=== PATIENT | male | born 1940 | race Caucasian/White ===

== ENCOUNTER 2016-06-01 19:39 | Inpatient (IN) ==
--- NOTE | 2016-06-01 19:55 | Emergency Department Note ---
Disposition Clinical Impression: Hip fracture Qualifiers: Encounter type: initial encounter Fracture type: closed Laterality: right Qualified Code(s): S72.001A - Fracture of unspecified part of neck of right femur, initial encounter for closed fracture Disposition: Admitted As Inpatient Condition: Good Fall HPI - General Chief Complaint: ED Fall Stated Complaint: FALL Source: patient Nursing Notes Reviewed: Yes Vital Signs Reviewed: Yes - History of Present Illness HPI Narrative: Patient comes in with right hip pain status post fall. Per report patient was walking and had a fall. Patient was helped back up in bed he has been in bed since then. Exam is limited to patient's altered mental status. When questioned he states that he does have pain in his right hip on palpation. Patient also states that he has pain in every other place when questioned. Patient baseline mental function is unknown at this time as no family members available at the bedside - Related Data Allergies Allergy/AdvReac Type Severity Reaction Status Date / Time No Known Allergies Allergy Verified 06/01/16 19:41 Limitations: ROS unobtainable due to patients medical condition Fall PMH - Past Medical History Medical history: Reports: other Psychiatric history: Reports: no psych history - Social History Smoking Status: Unknown if ever smoked Alcohol use: Reports: unknown Drug use: Reports: unknown Physical Exam - General Limitations: altered mental status General appearance: alert, appears intoxicated - Head Head exam: atraumatic, normocephalic, normal inspection - Eye Eye exam: Present: normal appearance, PERRL, EOMI - ENT ENT exam: normal exam, normal oropharynx, mucous membranes moist - Neck Neck exam: Present: normal inspection, full ROM, trachea midline - Chest Chest inspection: Present: normal inspection, symmetric chest wall rise - Respiratory Respiratory exam: Present: normal lung sounds bilaterally - Cardiovascular Cardiovascular exam: Present: regular rate, normal rhythm, normal heart sounds - Abdominal Exam Abdominal exam: Present: soft, Non-Tender. Absent: tenderness, distention, guarding, rebound, rigidity - Extremities Exam Extremities exam: Present: other (Right hip exam limited secondary to pain. The limb appears to be shortened when compared to left) - Back Exam Back exam: Present: normal inspection, full ROM. Absent: tenderness - Neurological Exam Neurological exam: Present: alert - Psychiatric Psychiatric exam: Present: normal affect - Skin Skin exam: Present: warm, dry, intact, normal color Course Vital Signs Temperature 97.6 F 06/01/16 19:44 Pulse Rate 91 06/01/16 19:44 Respiratory Rate 22 06/01/16 19:44 Blood Pressure 165/102 06/01/16 19:44 O2 Sat by Pulse Oximetry 94 L 06/01/16 19:44 Temperature 97.6 F 06/01/16 19:44 Pulse Rate 87 06/01/16 22:23 Respiratory Rate 22 06/01/16 23:09 Blood Pressure 147/64 06/01/16 23:09 O2 Sat by Pulse Oximetry 96 06/01/16 22:23 Oxygen Delivery Oxygen Delivery Room Air Fall - Lab Data Result diagrams: 06/01/16 20:00 06/01/16 20:00 Lab Results 06/01/16 06/01/16 06/01/16 Range/Units 20:00 20:00 20:00 WBC 13.6 H (4.3-11.1) K/mcL RBC 4.76 (4.19-5.50) M/mcL Hgb 14.5 (12.9-16.9) g/dL Hct 42.8 (37.5-50.1) % MCV 89.9 (83.0-100.0) fL MCH 30.5 (28.0-33.3) pg MCHC 33.9 (31.6-35.5) g/dL RDW 13.2 (11.5-14.5) % Plt Count 331 (140-400) K/mcL MPV 8.8 L (9.4-12.4) fL Immature Gran % 1.0 (0-4) % Seg Neutrophils % 77.7 % Lymphocytes % 9.8 % Monocytes % 10.9 % Eosinophils % 0.4 % Basophils % 0.2 % Neutrophils # 10.6 H (1.6-8.9) K/mcL Lymphocytes # 1.3 (0.6-4.6) K/mcL Monocytes # 1.5 H (0.0-1.3) K/mcL Eosinophils # 0.1 (0.0-0.6) K/mcL Basophils # 0.0 (0.0-0.2) K/mcL Sodium 133 L (136-145) mEq/L Potassium 3.8 (3.5-4.5) mEq/L Chloride 97 L (98-109) mEq/L Carbon Dioxide 25 (19-29) mEq/L BUN 12 (8-26) mg/dL Creatinine 1.23 (0.72-1.25) mg/dL Est GFR ( Amer) > 60 (> 60) Est GFR (Non-Af Amer) 57 L (> 60) BUN/Creatinine Ratio 10 (6-26) Glucose 151 H (70-99) mg/dL Calculated Osmolality 279 L (280-300) Lactic Acid 2.0 (0.5-2.2) mmol/L Calcium 8.7 (8.6-10.8) mg/dL Total Bilirubin 1.7 H (0.2-1.2) mg/dL AST 19 (5-34) Units/L ALT 11 (0-55) Units/L Alkaline Phosphatase 66 (38-126) Units/L Troponin I (0-0.03) ng/mL Serum Total Protein 7.1 (6.0-8.3) g/dL Albumin 3.1 L (3.5-5.0) g/dL Globulin 4.0 H (2.4-3.5) g/dL Albumin/Globulin Ratio 0.8 L (1.1-2.2) Urine Color (Yellow) Urine Clarity (Clear) Urine pH (5.0-8.0) pH Units Ur Specific Brewster (1.010-1.025) Urine Protein (Neg-Trace) mg/dL Urine Glucose (UA) (Normal) mg/dL Urine Ketones (Negative) mg/dL Urine Blood (Negative) Urine Nitrite (Negative) Urine Bilirubin (Negative) Urine Urobilinogen (Normal) mg/dL Ur Leukocyte Esterase (Negative) Urine Microscopic RBC (0-3) per hpf Urine Microscopic WBC (0-3) per hpf Ur Squamous Epith Cells (None-Few) per lpf Urine Bacteria (None-Few) per hpf Hyaline Casts (None-Few) per lpf Ur Culture Indicated? (NO) 06/01/16 06/01/16 Range/Units 20:00 21:32 WBC (4.3-11.1) K/mcL RBC (4.19-5.50) M/mcL Hgb (12.9-16.9) g/dL Hct (37.5-50.1) % MCV (83.0-100.0) fL MCH (28.0-33.3) pg MCHC (31.6-35.5) g/dL RDW (11.5-14.5) % Plt Count (140-400) K/mcL MPV (9.4-12.4) fL Immature Gran % (0-4) % Seg Neutrophils % % Lymphocytes % % Monocytes % % Eosinophils % % Basophils % % Neutrophils # (1.6-8.9) K/mcL Lymphocytes # (0.6-4.6) K/mcL Monocytes # (0.0-1.3) K/mcL Eosinophils # (0.0-0.6) K/mcL Basophils # (0.0-0.2) K/mcL Sodium (136-145) mEq/L Potassium (3.5-4.5) mEq/L Chloride (98-109) mEq/L Carbon Dioxide (19-29) mEq/L BUN (8-26) mg/dL Creatinine (0.72-1.25) mg/dL Est GFR ( Amer) (> 60) Est GFR (Non-Af Amer) (> 60) BUN/Creatinine Ratio (6-26) Glucose (70-99) mg/dL Calculated Osmolality (280-300) Lactic Acid (0.5-2.2) mmol/L Calcium (8.6-10.8) mg/dL Total Bilirubin (0.2-1.2) mg/dL AST (5-34) Units/L ALT (0-55) Units/L Alkaline Phosphatase (38-126) Units/L Troponin I 0.02 (0-0.03) ng/mL Serum Total Protein (6.0-8.3) g/dL Albumin (3.5-5.0) g/dL Globulin (2.4-3.5) g/dL Albumin/Globulin Ratio (1.1-2.2) Urine Color Dark Yellow (Yellow) Urine Clarity Clear (Clear) Urine pH 6.0 (5.0-8.0) pH Units Ur Specific Brewster 1.019 (1.010-1.025) Urine Protein 30 H (Neg-Trace) mg/dL Urine Glucose (UA) Normal (Normal) mg/dL Urine Ketones Trace H (Negative) mg/dL Urine Blood Negative (Negative) Urine Nitrite Negative (Negative) Urine Bilirubin Negative (Negative) Urine Urobilinogen Normal (Normal) mg/dL Ur Leukocyte Esterase Negative (Negative) Urine Microscopic RBC 3-5 H (0-3) per hpf Urine Microscopic WBC 0-3 (0-3) per hpf Ur Squamous Epith Cells Many H (None-Few) per lpf Urine Bacteria None Seen (None-Few) per hpf Hyaline Casts None Seen (None-Few) per lpf Ur Culture Indicated? NO (NO) - EKG Data EKG attestation: Yes I reviewed and interpreted this EKG. EKG shows normal: sinus rhythm Rate: normal Rhythm: NSR Critical Care Time Total Critical Care Time: 30 Attestation: Head CT 06/01/16 19:42 IMPRESSION: No acute intracranial abnormality. D/ / Tang Cedeño MD / Tang Cedeño MD Interpreting Provider: Tang Cedeño MD Pelvis CT 06/01/16 19:42 IMPRESSION: Impacted right femoral neck fracture. D/ / eTe Shields MD / Tee Shields MD Interpreting Provider: Tee Shields MD Chest X-Ray 06/01/16 22:25 IMPRESSION: Patchy bibasilar opacities, right greater the left. While these findings may in part reflect atelectatic changes, possible infectious infiltrates could be considered in the correct clinical setting. D/ / Ahsan Sweet MD / Ahsan Sweet MD Interpreting Provider: Ahsan Sweet MD
[2016-06-01 20:07] LABS: Basophils % 0.2 %; Eosinophils # 0.1 K/mcL (0.0-0.6); Eosinophils % 0.4 %; Hematocrit 42.8 % (37.5-50.1); Hemoglobin 14.5 g/dL (12.9-16.9); Lymphocytes # 1.3 K/mcL (0.6-4.6); Lymphocytes % 9.8 %; Mean Corpuscular HGB Conc 33.9 g/dL (31.6-35.5); Mean Corpuscular Hemoglobin 30.5 pg (28.0-33.3); Mean Corpuscular Volume 89.9 fL (83.0-100.0); Mean Platelet Volume 8.8 fL (9.4-12.4); Monocytes # 1.5 K/mcL (0.0-1.3); Monocytes % 10.9 %; Neutrophils # 10.6 K/mcL (1.6-8.9); Platelet Count 331 K/mcL (140-400); Red Blood Count 4.76 M/mcL (4.19-5.50); Red Cell Distribution Width 13.2 % (11.5-14.5); Segmented Neutrophils % 77.7 %
[2016-06-01 20:20] LABS: Alanine Aminotransferase 11 Units/L (0-55); Albumin 3.1 g/dL (3.5-5.0); Albumin/Globulin Ratio 0.8 (1.1-2.2); Alkaline Phosphatase 66 Units/L (38-126); Aspartate Amino Transferase 19 Units/L (5-34); BUN/Creatinine Ratio 10 (6-26); Bilirubin,Total 1.7 mg/dL (0.2-1.2); Blood Urea Nitrogen 12 mg/dL (8-26); Calcium 8.7 mg/dL (8.6-10.8); Carbon Dioxide 25 mEq/L (19-29); Chloride 97 mEq/L (98-109); Glucose 151 mg/dL (70-99); Osmolality,Calculated 279 (280-300); Potassium 3.8 mEq/L (3.5-4.5); Sodium 133 mEq/L (136-145); Total Protein 7.1 g/dL (6.0-8.3); eGFR For African Americans > 60 (> 60); eGFR For Non-African Americans 57 (> 60)
[2016-06-01 21:39] LABS: Bilirubin,Urine Negative (Negative); Blood,Urine Negative (Negative); Clarity,Urine Clear (Clear); Color,Urine Dark Yellow (Yellow); Glucose,Urine (UA) Normal (Normal); Ketones,Urine Trace mg/dL (Negative); Leukocyte Esterase,Urine Negative (Negative); Nitrite,Urine Negative (Negative); Protein,Urine 30 mg/dL (Neg-Trace); Specific Gravity,Urine 1.019 (1.010-1.025); Urobilinogen,Urine Normal (Normal)
[2016-06-01 21:41] LABS: Bacteria,Urine None Seen per hpf (None-Few); Hyaline Casts,Urine None Seen per lpf (None-Few); Squamous Epithelial Cell,Urine Many per lpf (None-Few); WBC,Urine 0-3 per hpf (0-3)
[2016-06-01] MEDS ORDERED: 0.9 % Sodium Chloride 500 ML IV ONE (22:26)
--- NOTE | 2016-06-01 23:34 | Internal Med History&Physical ---
<CheungJean - Last Filed: 06/02/16 00:02> Date of Encounter: 06/01/16 Time of Encounter: 23:30 Assessment and Plan (1) Fracture of femoral neck, right, closed Current visit: Yes Status: Acute s/p fall yesterday onto right hip, CT demonstrated impacted right femoral neck fracture Orthopedic surgeon consulted, appreciate management Support with analgesics, anti-emetics and maintenance IVF while NPO midnight for possible procedure tomorrow Consult PT/OT/SS, appreciate recommendations Qualifiers: Qualified Code(s): S72.001A - Fracture of unspecified part of neck of right femur, initial encounter for closed fracture (2) Altered mental status Current visit: Yes Status: Chronic states he is near his baseline over the past 3 months, suspect underlying dementia Will obtain TSH, B12 to workup metabolic etiology Qualifiers: Qualified Code(s): R41.82 - Altered mental status, unspecified (3) Hypertension Current visit: Yes Status: Chronic Blood pressures acceptable since admission and is unsure what medications he is on at home Will order PRN IV Hydralazine if SBP > 180 Qualifiers: Qualified Code(s): I10 - Essential (primary) hypertension (4) Leukocytosis Current visit: Yes Status: Acute Unclear etiology, likely reactive in setting of recent fall but pneumonia cannot be ruled out Initial 1V CXR was equivocal so will obtain repeat 2V CXR in AM to evaluate for further evaluation He has no respiratory symptoms currently and urine is clean Qualifiers: Qualified Code(s): D72.829 - Elevated white blood cell count, unspecified Internal Medicine - H&P: HPI Chief complaint: fall Admitted From: Home Plans for Post Hospital Care: Home History of present illness: Mr. Ellis is a 75 year old male who presents to emergency department after sustaining a fall last night. He appears confused and does not answer questions appropriately, but is accompanied by his who is able to assist in history. Unfortunately, she is not the best historian but she states that they had returned home from a blood draw and he had an unwitnessed fall. states that he had right hip pain immediately after the fall and needed help to pick him up. Patient is very hard of hearing and also has history of glaucoma, and is able to get around with a walker and wheelchair at home. states that he has been falling roughly every 3-6 months over the past few years, but denies that he ever loses any consciousness. They do have a home health nurse that comes by every 2 or 3 nights to help out. states that patient has been confused over the past 3 months and has also had excessive sleeping during the day and has very "quiet" all the time. She reports that he had a stroke at some point in the past and has residual left-sided deficits. He has also had upper extremity tremor in the past 3 months. Past Med Surg Social Fam HX - Past Medical History Medical history: other Psychiatric history: no psych history - Social History Smoking Status: Unknown if ever smoked Alcohol use: unknown Drug use: unknown Internal Medicine - H&P: Meds Allergies No Known Allergies Allergy (Verified 06/01/16 19:41) ROS unobtainable: due to mental status All Systems PM: A 10-system review of systems was performed and is negative for pertinent findings except as documented above in the HPI. - Constitutional Vitals: Temp Pulse Resp BP Pulse Ox 97.6 F 87 22 147/64 96 06/01/16 19:44 06/01/16 22:23 06/01/16 23:09 06/01/16 23:09 06/01/16 22:23 General appearance: Present: A&O X 0 (does not know where he is, thinks it 1995 , was able to tell me correct month and date but not the year), disheveled , pleasant, no acute distress. Absent: answers questions appropriately - Head Head exam: Present: atraumatic, normocephalic - Eye Eye exam: Present: PERRL, conjuntiva pink, sclera anicteric - Neck Neck exam general surgery: Present: supple, trachea midline. Absent: lymphadenopathy - Respiratory Respiratory exam: Present: CTAB. Absent: accessory muscle use, rales, rhonchi, wheezes - Cardiovascular Cardiovascular exam: Present: RRR, +S1, +S2. Absent: diastolic murmur, gallop, rubs, systolic murmur - GI/Abdominal GI/Abdominal exam: Present: normal bowel sounds, soft, no peritoneal signs. Absent: distended, tenderness - Extremities Exam Extremities exam: Present: tenderness (does not have any tenderness with palpation of right hip, but does hurt when moving right leg), warm, radial pulses palpable and symetrical. Absent: calf tenderness, cyanotic, pedal edema - Neurological Exam Neurological exam: Present: altered. Absent: oriented X3, strengths equal and symetr throughout (unable to lift right leg at all), facial droop, speech deficit - Skin Skin exam: Present: dry, intact Internal Med - H&P Results - Labs CBC & Chem 7: 06/01/16 20:00 06/01/16 20:00 <Salvador Jerry Santi - Last Filed: 06/02/16 08:58> Internal Medicine - H&P: HPI History of present illness: Mr. Ellis is a 75 year old male All Systems PM: A 10-system review of systems was performed and is negative for pertinent findings except as documented above in the HPI. - Constitutional Vitals: Temp Pulse Resp BP Pulse Ox 99.1 F 93 18 189/92 96 06/02/16 06:45 06/02/16 06:45 06/02/16 06:45 06/02/16 06:45 06/02/16 06:45 Internal Med - H&P Results - Labs CBC & Chem 7: 06/02/16 04:05 06/02/16 04:05 Labs: Short CBC 06/02/16 Range/Units 04:05 WBC 14.7 H (4.3-11.1) K/mcL Hgb 13.4 (12.9-16.9) g/dL Hct 39.3 (37.5-50.1) % Plt Count 324 (140-400) K/mcL Neutrophils # 11.0 H (1.6-8.9) K/mcL BMP 06/02/16 04:05 Sodium 133 L Potassium 3.6 Chloride 99 Carbon Dioxide 24 BUN 12 Creatinine 1.03 Glucose 119 H Calcium 8.1 L - Impressions ITS Impressions Head CT 06/01/16 19:42 IMPRESSION: No acute intracranial abnormality. D/ / Tang Cedeño MD / Tang Cedeño MD Interpreting Provider: Tang Cedeño MD Pelvis CT 06/01/16 19:42 IMPRESSION: Impacted right femoral neck fracture. D/ / Tee Shields MD / Tee Shields MD Interpreting Provider: Tee Shields MD Chest X-Ray 06/01/16 22:25 IMPRESSION: Patchy bibasilar opacities, right greater the left. While these findings may in part reflect atelectatic changes, possible infectious infiltrates could be considered in the correct clinical setting. D/ / Ahsan Sweet MD / Ahsan Sweet MD Interpreting Provider: Ahsan Sweet MD - Attending Attestation I performed a history and physical examination of the patient and discussed his management with the Resident/Eye Specialist (Dr Cheung). I reviewed the residents note and agree with the documented findings and plan of care, with additions as below. 75 Y/M sustained a fall and noticed right hip pain. Imaging shows right hip fracture. Pt has leukocytosis and the CXR is inconclusive. Will repeat 2 view CXR in the AM. O/E: confused. No significant hip tenderness. A/P; Orthopedic consult (Dr Rios). Pain relief; bed rest until surgery. PT consult
[2016-06-01] MEDS ORDERED: Dextrose Gel 15 GM PO PRN ×2 (23:55)
[2016-06-01] MEDS ORDERED: *HR* Dextrose 50 % in Water (Syg) 50 ML SYRINGE IVP PRN (23:55)
[2016-06-01] MEDS ORDERED: D5% in Water 1,000 ML IV PRN (23:55)
[2016-06-01] MEDS ORDERED: Naloxone 0.4 MG/ML INJ IVP PRN (23:55)
[2016-06-01] MEDS ORDERED: Ondansetron 4 MG/2 ML VIAL IVP PRN (23:55)
[2016-06-02] MEDS ORDERED: Ipratropium/Albuterol Neb 3 ML IH PRN (00:26)
[2016-06-02] MEDS: Ringers Solution, Lactated 1,000 ML IVC SCH ×2 (01:07→16:39)
[2016-06-02] MEDS: Insulin LISPRO 300 UNITS/3 ML VIAL SQ SCH ×5 (01:08→17:19)
[2016-06-02] MEDS ORDERED: Nicotine 21 MG PATCH.TD24 TD SCH ×2 (01:50→09:00)
[2016-06-02] MEDS: *HR* Morphine 2 MG/ML SYRINGE IVP PRN ×2 (03:50→16:39)
[2016-06-02 04:21] LABS: Basophils # 0.1 K/mcL (0.0-0.2); Basophils % 0.5 %; Eosinophils # 0.3 K/mcL (0.0-0.6); Eosinophils % 2.1 %; Hematocrit 39.3 % (37.5-50.1); Hemoglobin 13.4 g/dL (12.9-16.9); Immature Granulocytes % 0.8 % (0-4); Lymphocytes # 1.8 K/mcL (0.6-4.6); Lymphocytes % 12.2 %; Mean Corpuscular HGB Conc 34.1 g/dL (31.6-35.5); Mean Corpuscular Hemoglobin 30.6 pg (28.0-33.3); Mean Corpuscular Volume 89.7 fL (83.0-100.0); Mean Platelet Volume 9.3 fL (9.4-12.4); Monocytes # 1.5 K/mcL (0.0-1.3); Monocytes % 10.1 %; Platelet Count 324 K/mcL (140-400); Red Blood Count 4.38 M/mcL (4.19-5.50); Red Cell Distribution Width 13.3 % (11.5-14.5); Segmented Neutrophils % 74.3 %
[2016-06-02 04:23] LABS: INR 1.3; Prothrombin Time 14.1 Seconds (9.4-12.1)
[2016-06-02 04:30] LABS: BUN/Creatinine Ratio 12 (6-26); Blood Urea Nitrogen 12 mg/dL (8-26); Calcium 8.1 mg/dL (8.6-10.8); Carbon Dioxide 24 mEq/L (19-29); Chloride 99 mEq/L (98-109); Glucose 119 mg/dL (70-99); Osmolality,Calculated 277 (280-300); Potassium 3.6 mEq/L (3.5-4.5); Sodium 133 mEq/L (136-145); eGFR For African Americans > 60 (> 60); eGFR For Non-African Americans > 60 (> 60)
[2016-06-02 04:54] LABS: Thyroid Stimulating Hormone 1.592 mcIU/mL (0.350-4.840)
--- NOTE | 2016-06-02 06:49 | Orthopedic Consult Note ---
Date of Encounter: 06/02/16 Time of Encounter: 06:47 History of Present Illness HPI: Mr. Ellis is a 75 year old male S/P fall yesterday wih injury to right hip denies head trauma A+Ox3 Right LE shortened ER decreased motion secondary to pain NVI CT scan displaced femoral neck fracture Plan for right hip hemiarthroplasty in AM risks and benefits and recovery discussed. Past Med Surg Social Fam HX - Past Medical History Medical history: other Psychiatric history: no psych history - Social History Smoking Status: Unknown if ever smoked Packs per day: 2.5 Smokeless Tobacco Status: No Alcohol use: unknown Drug use: unknown Medications and Allergies Allergies No Known Allergies Allergy (Verified 06/01/16 19:41) All Systems Reviewed: A 10-system review of systems was performed and is negative for pertinent findings except as documented above in the HPI. Physical Exam - Constitutional Vitals: Temp Pulse Resp BP Pulse Ox 98.6 F 92 16 176/80 97 06/02/16 05:05 06/02/16 05:05 06/02/16 05:05 06/02/16 05:05 06/02/16 05:05 Results - Labs Result Diagrams: 06/02/16 04:05 06/02/16 04:05 Labs: Abnormal lab results WBC 14.7 K/mcL (4.3-11.1) H 06/02/16 04:05 MPV 9.3 fL (9.4-12.4) L 06/02/16 04:05 Neutrophils # 11.0 K/mcL (1.6-8.9) H 06/02/16 04:05 Monocytes # 1.5 K/mcL (0.0-1.3) H 06/02/16 04:05 PT 14.1 Seconds (9.4-12.1) H 06/02/16 04:05 Sodium 133 mEq/L (136-145) L 06/02/16 04:05 Glucose 119 mg/dL (70-99) H 06/02/16 04:05 POC Glucose 128 (58-89) H 06/02/16 05:40 Calculated Osmolality 277 (280-300) L 06/02/16 04:05 Calcium 8.1 mg/dL (8.6-10.8) L 06/02/16 04:05 Total Bilirubin 1.7 mg/dL (0.2-1.2) H 06/01/16 20:00 Albumin 3.1 g/dL (3.5-5.0) L 06/01/16 20:00 Globulin 4.0 g/dL (2.4-3.5) H 06/01/16 20:00 Albumin/Globulin Ratio 0.8 (1.1-2.2) L 06/01/16 20:00 Urine Protein 30 mg/dL (Neg-Trace) H 06/01/16 21:32 Urine Ketones Trace mg/dL (Negative) H 06/01/16 21:32 Urine Microscopic RBC 3-5 per hpf (0-3) H 06/01/16 21:32 Ur Squamous Epith Cells Many per lpf (None-Few) H 06/01/16 21:32 H & H 06/02/16 Range/Units 04:05 Hgb 13.4 (12.9-16.9) g/dL Hct 39.3 (37.5-50.1) % All other labs normal. Consult Discharge Plan - Plan Referrals: Aline Joseph MD [Primary Care Provider] -
[2016-06-02 08:10] LABS: Hemoglobin A1C 5.8 %
[2016-06-02] MEDS ORDERED: Pantoprazole 40 MG VIAL IVP SCH (09:00)
[2016-06-02] MEDS ORDERED: *HR* Labetalol 20 MG/4 ML SYRINGE IVP ONE (10:03)
--- NOTE | 2016-06-02 12:35 | Internal Med Progress Note ---
Date of Encounter: 06/02/16 Time of Encounter: 12:33 - Assessment and plan (1) Fracture of femoral neck, right, closed Current Visit: Yes Status: Acute Assessment and plan: ortho has been consulted, planned for surgery he has HTN and HLD , does have intermediate risk for surgery. at this time, he is confused and cannot give any history regarding his pMH or his home meds. CT head done shows no abnormality. unclear etiology. ua is clear, mild leucocytosis and CXR shows b/l ate;ectasis vs pneumonia will emperically treat for pneumonia as he is a poor historian and confused, will de - escalate once able. conitnue DVt prophylaxis. Qualifiers: Encounter type: initial encounter Qualified Code(s): S72.001A - Fracture of unspecified part of neck of right femur, initial encounter for closed fracture (2) Hip fracture Current Visit: Yes Status: Acute Assessment and plan: as above Qualifiers: Encounter type: initial encounter Fracture type: closed Laterality: right Qualified Code(s): S72.001A - Fracture of unspecified part of neck of right femur, initial encounter for closed fracture (3) Leukocytosis Current Visit: Yes Status: Acute Assessment and plan: mildl leucocytosis, unclear if its from stress or pneumonia treating emperically now, will get sputum gram stain and cx. continue to monitor Qualifiers: Qualified Code(s): D72.829 - Elevated white blood cell count, unspecified (4) Altered mental status Current Visit: Yes Status: Chronic Assessment and plan: unclear etiolohgy. as per the nursig staff, nimesh who is the POA was also very confused. will get a drug screen. CT head, UA was clean, treating emperically for pneumonia at this time. Qualifiers: Altered mental status type: disorientation Qualified Code(s): R41.0 - Disorientation, unspecified (5) Hypertension Current Visit: Yes Status: Chronic Assessment and plan: ulices restart lisinopril. continue to monitor. Qualifiers: Hypertension type: essential hypertension Qualified Code(s): I10 - Essential (primary) hypertension - Time Spent With Patient 25 - 35 minutes - Subjective Interval history: patient seen at the bedside, appears very confused. alert and awake but does not answer questions appropriately. he denies any complains at this time was admitted for a fall and has hip fracture ortho has been consulted. - Constitutional Vitals: Temp Pulse Resp BP Pulse Ox 98.6 F 100 18 129/73 98 06/02/16 10:25 06/02/16 10:25 06/02/16 10:25 06/02/16 10:25 06/02/16 10:25 General appearance: Present: A&O X 0 (does not know where he is, thinks it 1995 , was able to tell me correct month and date but not the year), disheveled , pleasant, no acute distress. Absent: answers questions appropriately Exam: - Head Head exam: Present: atraumatic, normocephalic - Eye Eye exam: Present: PERRL, conjuntiva pink, sclera anicteric - Neck Neck exam general surgery: Present: supple, trachea midline. Absent: lymphadenopathy - Respiratory Respiratory exam: Present: CTAB. Absent: accessory muscle use, rales, rhonchi, wheezes - Cardiovascular Cardiovascular exam: Present: RRR, +S1, +S2. Absent: diastolic murmur, gallop, rubs, systolic murmur - GI/Abdominal GI/Abdominal exam: Present: normal bowel sounds, soft, no peritoneal signs. Absent: distended, tenderness - Extremities Exam Extremities exam: Present: tenderness (does not have any tenderness with palpation of right hip, but does hurt when moving right leg), warm, radial pulses palpable and symetrical. Absent: calf tenderness, cyanotic, pedal edema - Neurological Exam Neurological exam: Present: altered. Absent: oriented X3, strengths equal and symetr throughout (unable to lift right leg at all), facial droop, speech deficit - Skin Skin exam: Present: dry, intact Internal Medicine: Result - Labs CBC & Chem 7: 06/02/16 04:05 06/02/16 04:05 Labs: Short CBC 06/02/16 Range/Units 04:05 WBC 14.7 H (4.3-11.1) K/mcL Hgb 13.4 (12.9-16.9) g/dL Hct 39.3 (37.5-50.1) % Plt Count 324 (140-400) K/mcL Neutrophils # 11.0 H (1.6-8.9) K/mcL BMP 06/02/16 04:05 Sodium 133 L Potassium 3.6 Chloride 99 Carbon Dioxide 24 BUN 12 Creatinine 1.03 Glucose 119 H Calcium 8.1 L - ABG Interpretation ABG results: PT/INR, D-dimer PT 14.1 Seconds (9.4-12.1) H 06/02/16 04:05 - Impressions Impressions Chest X-Ray 06/02/16 04:00 IMPRESSION: 1. There are bilateral lung infiltrates, not appreciably changed. These may be related to atelectasis versus pneumonia. D/ / 06/02/2016 09:11:13 Dank Joshi MD / irma Interpreting Provider: Dank Joshi MD Consult Discharge Plan - Plan Referrals: Aline Joseph MD [Primary Care Provider] -
[2016-06-02] MEDS ORDERED: Azithromycin 500 MG in D5% in Water 250 ML IVPB SCH (13:00)
[2016-06-02] MEDS ORDERED: *HR* LORazepam 2 MG/ML VIAL IVP PRN ×3 (18:43)
[2016-06-02] MEDS ORDERED: Thiamine (B-1) 100 MG, Folic Acid 1 MG, MVI, adult with vitamin K 10 ML in 0.9 % Sodi... IV SCH (18:45)
[2016-06-02] MEDS ORDERED: Water for inj. (sterile) 10 ML IV ONE (18:56)
[2016-06-03] MEDS: Insulin LISPRO 300 UNITS/3 ML VIAL SQ SCH ×5 (03:41→22:04)
[2016-06-03] MEDS: Ringers Solution, Lactated 1,000 ML IVC SCH ×3 (03:46→13:00)
[2016-06-03 05:03] LABS: Hematocrit 35.7 % (37.5-50.1); Hemoglobin 12.2 g/dL (12.9-16.9)
[2016-06-03 05:15] LABS: BUN/Creatinine Ratio 12 (6-26); Blood Urea Nitrogen 12 mg/dL (8-26); Calcium 7.8 mg/dL (8.6-10.8); Carbon Dioxide 24 mEq/L (19-29); Chloride 101 mEq/L (98-109); Glucose 105 mg/dL (70-99); Osmolality,Calculated 278 (280-300); Potassium 3.7 mEq/L (3.5-4.5); Sodium 134 mEq/L (136-145); eGFR For African Americans > 60 (> 60); eGFR For Non-African Americans > 60 (> 60)
--- NOTE | 2016-06-03 07:28 | Orthopedics Progress Note ---
Date of Encounter: 06/03/16 Time of Encounter: 07:23 Subjective Interval history: Patient with confusion yesterday and today. Patient's also with suspicious mental status. Patient's did sign consent for the procedure, but there is concern with regards to her mental status. The patient has no other family that the system was able to contact. The patient has a right hip fracture. Non operative treatment in a timely fashion is known to be associated with both medical complications including but not limited pneumonia, bed sores and a higher risk of mortality. The patient is known to ambulate, and without surgery the chance of him being able to ambulate are minimal. The risks of the surgery are significantly less than the risks of non - operative management. Recommendation is for a right hip hem-arthroplasty. This was discussed with the risk and legal team, to proceed with surgery based on the medical benefits and the high risk of non operative management Objective Vital signs: Vital Signs Temp Pulse Resp BP Pulse Ox 06/03/16 06:27 98.9 F 83 16 127/68 95 06/03/16 04:03 99.2 F 81 18 131/66 97 06/02/16 23:47 99.0 F 83 19 134/69 100 06/02/16 20:00 97.6 F 84 16 121/68 99 06/02/16 15:18 97.4 F L 86 14 125/69 99 06/02/16 10:25 98.6 F 100 18 129/73 98 06/02/16 06:45 99.1 F 93 18 189/92 96 Intake and Output 06/02/16 06/02/16 06/03/16 15:59 23:59 08:59 Intake Total 350 / 350 1109 / 1109 1000 / 1000 Output Total 500 / 500 Balance 350 / 350 609 / 609 1000 / 1000 Intake: IV Fluids 350 / 350 1109 / 1109 1000 / 1000 Water for inj. (sterile) 9 / 9 10 ML As IV .STK-MED ONE Rx#:[id number] Lactated Ringers 1,000 ML 1000 / 1000 1000 / 1000 @ 100 mls/hr IVC .Q10H [facility] Rx#:[id number] Zithromax 500 mg In 250 / 250 Dextrose 5% 250 ML @ 252 mls/hr IVPB Q24H [facility] Rx#: [id number] Rocephin 1,000 MG In 100 / 100 100 / 100 Dextrose 5% (Minibag+) 100 ML 100 ML @ 200 mls/ hr IVPB Q12HR [facility] Rx#: [id number] Output: Catheter 500 / 500 Other: Blood Glucose* 196 116 110 - Labs CBC & BMP: 06/03/16 04:52 06/03/16 04:52 Labs: Abnormal lab results WBC 14.7 K/mcL (4.3-11.1) H 06/02/16 04:05 Hgb 12.2 g/dL (12.9-16.9) L 06/03/16 04:52 Hct 35.7 % (37.5-50.1) L 06/03/16 04:52 MPV 9.3 fL (9.4-12.4) L 06/02/16 04:05 Neutrophils # 11.0 K/mcL (1.6-8.9) H 06/02/16 04:05 Monocytes # 1.5 K/mcL (0.0-1.3) H 06/02/16 04:05 PT 14.1 Seconds (9.4-12.1) H 06/02/16 04:05 Sodium 134 mEq/L (136-145) L 06/03/16 04:52 Glucose 105 mg/dL (70-99) H 06/03/16 04:52 POC Glucose 110 (58-89) H 06/03/16 05:53 Hemoglobin A1c 5.8 % (-5.6) H 06/02/16 05:08 Calculated Osmolality 278 (280-300) L 06/03/16 04:52 Calcium 7.8 mg/dL (8.6-10.8) L 06/03/16 04:52 Total Bilirubin 1.7 mg/dL (0.2-1.2) H 06/01/16 20:00 Albumin 3.1 g/dL (3.5-5.0) L 06/01/16 20:00 Globulin 4.0 g/dL (2.4-3.5) H 06/01/16 20:00 Albumin/Globulin Ratio 0.8 (1.1-2.2) L 06/01/16 20:00 Vitamin B12 204 pg/mL (213-816) L 06/02/16 05:08 Urine Protein 30 mg/dL (Neg-Trace) H 06/01/16 21:32 Urine Ketones Trace mg/dL (Negative) H 06/01/16 21:32 Urine Microscopic RBC 3-5 per hpf (0-3) H 06/01/16 21:32 Ur Squamous Epith Cells Many per lpf (None-Few) H 06/01/16 21:32 Consult Discharge Plan - Plan Referrals: Aline Joseph MD [Primary Care Provider] -
--- NOTE | 2016-06-03 07:45 | Anesthesia Evaluation PreOp ---
Date of Encounter: 06/03/16 Time of Encounter: 07:41 - Past History Planned Operation: R lamar hip Cardiac History: HTN Pulmonary History: Denies Any Significant HX WEED INSPECTOR History: Other (altered mental status) Anesthesia History: Past Anesthesia (uanble to assess) Alcohol Use: unknown Drug use: unknown Medications and Allergies Aspirin [Lo-Dose Aspirin EC] 81 mg PO DAILY 06/02/16 [History] Atorvastatin [Lipitor] 40 mg PO DAILY 06/02/16 [History] Ezetimibe [Zetia] 10 mg PO DAILY 06/02/16 [History] Lisinopril [Zestril] 10 mg PO DAILY 06/02/16 [History] Lisinopril-HCTZ 10-12.5 [Prinzide 10-12.5] 1 tab PO DAILY 06/02/16 [History] Allergies No Known Allergies Allergy (Verified 06/01/16 19:41) - Meds/Allergy Pre-op Review Medications Reviewed: Yes Allergies Reviewed: Yes Beta Blockers on Current Med List: No Anesthesia Results - Labs 06/03/16 04:52 06/03/16 04:52 - Imaging EKG: image reviewed (NSR) Anesthesia Exam Vital Signs/O2 Sat, Most Current Temp Pulse Resp BP Pulse Ox 98.9 F 83 16 127/68 95 06/03/16 06:27 06/03/16 06:27 06/03/16 06:27 06/03/16 06:27 06/03/16 06:27 Height: 1.73m Weight: 77kg NPO (# of Hours): >8 - HEENT Pupil (Motor): Pupils equal, EOMI Mallampati: II Teeth: Edentulous - WEED INSPECTOR LOC: Confused WEED INSPECTOR Motor: Normal RUE, Normal LUE, Normal RLE, Normal LLE, Normal Face WEED INSPECTOR Sensory: Normal: RUE, LUE, RLE, LLE, Face - Cardiac Rhythm: Regular - Pulmonary Breath Sounds: bilateral Clear Respiratory Effort: Symmetrical Anesthesia Assess/Plan ASA Score: 2 Modified Wally Scale for Level of Consciousness: Drowsy, but responsive to commands Anesthetic Plan: General (unable to consent due to mental status, medical necessity, surgeon discussed with legal) Monitoring Plan: Standard Monitors Recovery Plan: PACU
[2016-06-03] MEDS ORDERED: *HR* FentaNYL (PF) 100 MCG/2 ML VIAL ONE (07:49)
[2016-06-03] MEDS ORDERED: *HR* Rocuronium Bromide 50 MG/5 ML VIAL ONE (07:49)
[2016-06-03] MEDS ORDERED: Propofol 500 MG/50 ML INFUS..BTL ONE (07:49)
[2016-06-03] MEDS ORDERED: Ondansetron 4 MG/2 ML VIAL ONE ×2 (08:18→08:24)
[2016-06-03] MEDS ORDERED: ceFAZolin 2,000 MG in D5% in Water 100 ML IVPB ONE (08:30)
[2016-06-03] MEDS ORDERED: Ringers Solution, Lactated 1,000 ML IVC SCH ×2 (08:45→09:15)
--- NOTE | 2016-06-03 08:53 | Orthopedic Operative Note ---
Date of procedure: 06/03/16 Pre-op diagnosis: Displaced right hip fracture Post-op diagnosis: same Procedure: Procedure: Right hip hemiarthroplasty Estimated blood loss: 100 cc Hardware: Biomet, 10 stem, 53 Endo head, +3 taper Procedural Notes: Displaced femoral neck fracture. Operative procedure: The patient was brought to the operating room and placed on the operating room table. After general anesthesia was administered the patient was placed in the lateral decubitus position with the operative leg up. All pressure points were padded appropriately and the head was stabilized in the neutral position. The operative extremity was prepped and draped in the sterile surgical fashion patient received IV antibiotic prior to skin incision. A standard posterior approach is made to the operative hip, the incision was made through the skin and subcutaneous tissue hemostasis was obtained with Bovie cautery. Using careful sharp dissection the fascia was identified and incised exposing the external rotators. The external rotators were released off the greater trochanter and tagged with #2 FiberWire suture. The capsule was T'd open the femoral head was removed. The femoral neck cut was made at the appropriate level. The hip was brought into internal rotation and prepared with the box spring frame builder followed by the canal finder followed by broaching process in 20 degrees anteversion. It was broached up to the appropriate size 10. The femoral implant was impacted in place in 20 degrees of anteversion. Trial reduction found the hip to be stable with the +3, 53 Endo head. The trials were removed and the real implants were impacted in place. The hip was reduced, the hip had full extension and full flexion of the knee was in full extension.the patient had apparent equal leg length. The hip had excellent stability with forward flexion to 90 degrees adduction of 30 degrees and internal rotation of 60 degrees. The hip had no shuck. The hip was irrigated out with 2 L of pulse irrigation. The external rotators were reattached to drill holes in the greater trochanter. Fascia was closed with a running #2 PDS suture. The deep tissue was irrigated and closed deep with #1 PDS suture superficially with 0 PDS suture and skin was closed with skin princess. The patient was placed in a sterile dressing and abduction pillow. The patient was extubated and transferred to the recovery room in stable condition. Anesthesia: GETA Surgeon: Richie Rios Condition: stable Disposition: PACU
[2016-06-03] MEDS ORDERED: Ondansetron 4 MG/2 ML VIAL IVP ONE (09:10)
[2016-06-03] MEDS ORDERED: *HR* FentaNYL (PF) 100 MCG/2 ML VIAL IVP PRN (09:10)
--- NOTE | 2016-06-03 09:37 | Anesthesia Evaluation Post Op ---
Date of Encounter: 06/03/16 Time of Encounter: 09:36 - Vital Signs Vital Signs: Vital Signs/O2 Sat, Most Current Temp Pulse Resp BP Pulse Ox 98.5 F 87 16 140/92 98 06/03/16 09:31 06/03/16 09:31 06/03/16 09:31 06/03/16 09:31 06/03/16 09:31 - Lungs Lungs: Clear Ascult./Percussion - Airway Airway: Non-obstructed - Cardiovascular Regular Rate - Mental Status Mental Status: Confused (baseline status) - Pain Pain Scale: 0 Pain Scale used: [place] (Faces) - Nausea Vomiting Nausea Vomiting: Not Present - Hydration Hydration: NPO - Discharge PostOp Status: Transfer Patient to floor
[2016-06-03 10:06] LABS: Hematocrit 36.1 % (37.5-50.1); Hemoglobin 11.8 g/dL (12.9-16.9)
[2016-06-03] MEDS ORDERED: *HR* Dextrose 50 % in Water (Syg) 50 ML SYRINGE IVP PRN (10:14)
[2016-06-03] MEDS ORDERED: D5% in Water 1,000 ML IV PRN (10:14)
[2016-06-03] MEDS ORDERED: Dextrose Gel 15 GM PO PRN ×2 (10:14)
[2016-06-03] MEDS ORDERED: *HR* Morphine 2 MG/ML SYRINGE IVP PRN (10:14)
[2016-06-03] MEDS ORDERED: *HR* LORazepam 2 MG/ML VIAL IVP PRN ×2 (10:14)
[2016-06-03] MEDS ORDERED: Ondansetron 4 MG/2 ML VIAL IVP PRN (10:14)
[2016-06-03] MEDS ORDERED: Ipratropium/Albuterol Neb 3 ML IH PRN (10:14)
[2016-06-03] MEDS ORDERED: Sennosides 8.6 MG TABLET PO PRN (10:14)
[2016-06-03] MEDS ORDERED: Temazepam 15 MG CAPSULE PO PRN (10:14)
[2016-06-03] MEDS ORDERED: MOM Conc 10 ML UD.LIQ PO PRN (10:14)
[2016-06-03] MEDS ORDERED: Naloxone 0.4 MG/ML INJ IVP PRN (10:14)
[2016-06-03] MEDS: Multivit/Ca/Min/Fe/FA 1 TAB TABLET PO SCH (10:58)
[2016-06-03] MEDS: Ascorbic Acid 500 MG TABLET PO SCH ×2 (10:58→16:55)
[2016-06-03] MEDS ORDERED: Insulin LISPRO 300 UNITS/3 ML VIAL SQ SCH (12:00)
[2016-06-03] MEDS: Azithromycin 500 MG in D5% in Water 250 ML IVPB SCH (13:04)
--- NOTE | 2016-06-03 14:47 | Internal Med Progress Note ---
Date of Encounter: 06/03/16 Time of Encounter: 14:45 - Assessment and plan (1) Fracture of femoral neck, right, closed Current Visit: Yes Status: Acute Assessment and plan: ortho has been consulted, s/p surgery today. appears drowsy today, may be 2/2 anesthesia and intra op pain meds. will ovbserve closely,, currently saturating 98% on 2 l will continue the treatment for pneumonia. conitnue DVt prophylaxis. Qualifiers: Encounter type: initial encounter Qualified Code(s): S72.001A - Fracture of unspecified part of neck of right femur, initial encounter for closed fracture (2) Hip fracture Current Visit: Yes Status: Acute Assessment and plan: as above. continue post op care as per ortho Qualifiers: Encounter type: initial encounter Fracture type: closed Laterality: right Qualified Code(s): S72.001A - Fracture of unspecified part of neck of right femur, initial encounter for closed fracture (3) Leukocytosis Current Visit: Yes Status: Acute Assessment and plan: mildl leucocytosis, unclear if its from stress or pneumonia treating emperically now, will get sputum gram stain and cx. continue to monitor Qualifiers: Qualified Code(s): D72.829 - Elevated white blood cell count, unspecified (4) Altered mental status Current Visit: Yes Status: Chronic Assessment and plan: unclear etiolohgy. as per the [facility] staff, nimesh who is the POA was also very confused. as per the landlord, both the and live in very poor conditions. CT head, UA was clean, treating emperically for pneumonia at this time. Qualifiers: Altered mental status type: disorientation Qualified Code(s): R41.0 - Disorientation, unspecified (5) Hypertension Current Visit: Yes Status: Chronic Assessment and plan: ulices restart lisinopril. continue to monitor. Qualifiers: Hypertension type: essential hypertension Qualified Code(s): I10 - Essential (primary) hypertension - Time Spent With Patient 25 - 35 minutes - Subjective Interval history: patient seen at the bedside, appears very drowsy, just had surgery today, seen later during the day, he is opening up his eyes and is trying to speak. he denies any complains at this time was admitted for a fall and has hip fracture ortho is on board. - Constitutional Vitals: Temp Pulse Resp BP Pulse Ox 98.0 F 87 18 158/70 98 06/03/16 13:07 06/03/16 13:07 06/03/16 13:07 06/03/16 13:07 06/03/16 13:07 General appearance: Present: A&O X 0 (does not know where he is, thinks it 1995 , was able to tell me correct month and date but not the year), disheveled , pleasant, no acute distress. Absent: answers questions appropriately Exam: - Head Head exam: Present: atraumatic, normocephalic - Eye Eye exam: Present: PERRL, conjuntiva pink, sclera anicteric - Neck Neck exam general surgery: Present: supple, trachea midline. Absent: lymphadenopathy - Respiratory Respiratory exam: Present: CTAB. Absent: accessory muscle use, rales, rhonchi, wheezes - Cardiovascular Cardiovascular exam: Present: RRR, +S1, +S2. Absent: diastolic murmur, gallop, rubs, systolic murmur - GI/Abdominal GI/Abdominal exam: Present: normal bowel sounds, soft, no peritoneal signs. Absent: distended, tenderness - Extremities Exam Extremities exam: Present: tenderness (does not have any tenderness with palpation of right hip, but does hurt when moving right leg), warm, radial pulses palpable and symetrical. Absent: calf tenderness, cyanotic, pedal edema - Neurological Exam Neurological exam: Present: altered. Absent: oriented X3, strengths equal and symetr throughout (unable to lift right leg at all), facial droop, speech deficit - Skin Skin exam: Present: dry, intact Internal Medicine: Result - Labs CBC & Chem 7: 06/03/16 09:28 06/03/16 04:52 Labs: Short CBC 06/03/16 06/03/16 Range/Units 04:52 09:28 Hgb 12.2 L 11.8 L (12.9-16.9) g/dL Hct 35.7 L 36.1 L (37.5-50.1) % BMP 06/03/16 04:52 Sodium 134 L Potassium 3.7 Chloride 101 Carbon Dioxide 24 BUN 12 Creatinine 0.98 Glucose 105 H Calcium 7.8 L - ABG Interpretation ABG results: PT/INR, D-dimer PT 14.1 Seconds (9.4-12.1) H 06/02/16 04:05 - Impressions Impressions Hip X-Ray 06/03/16 08:53 IMPRESSION: Expected postoperative appearance from right hip arthroplasty. D/ / 06/03/2016 09:24:27 Toni Hagan MD / irma Interpreting Provider: Toni Hagan MD - VTE Documentation of Mechanical Device: Venous foot pump, device Consult Discharge Plan - Plan Referrals: Aline Joseph MD [Primary Care Provider] -
[2016-06-04] MEDS: *HR* LORazepam 2 MG/ML VIAL IVP PRN ×2 (03:42→12:47)
[2016-06-04 05:15] LABS: Hematocrit 32.2 % (37.5-50.1)
[2016-06-04 05:40] LABS: BUN/Creatinine Ratio 14 (6-26); Blood Urea Nitrogen 13 mg/dL (8-26); Calcium 8.2 mg/dL (8.6-10.8); Carbon Dioxide 26 mEq/L (19-29); Chloride 100 mEq/L (98-109); Glucose 132 mg/dL (70-99); Osmolality,Calculated 276 (280-300); Potassium 3.9 mEq/L (3.5-4.5); Sodium 132 mEq/L (136-145); eGFR For African Americans > 60 (> 60); eGFR For Non-African Americans > 60 (> 60)
[2016-06-04] MEDS: Ascorbic Acid 500 MG TABLET PO SCH ×2 (07:49→17:14)
[2016-06-04] MEDS: Multivit/Ca/Min/Fe/FA 1 TAB TABLET PO SCH (07:49)
[2016-06-04] MEDS: Pantoprazole 40 MG VIAL IVP SCH (07:49)
[2016-06-04] MEDS: Ringers Solution, Lactated 1,000 ML IVC SCH (07:49)
[2016-06-04] MEDS: Insulin LISPRO 300 UNITS/3 ML VIAL SQ SCH ×4 (07:50→21:50)
[2016-06-04] MEDS: Nicotine 21 MG PATCH.TD24 TD SCH (07:50)
[2016-06-04] MEDS ORDERED: Thiamine (B-1) 100 MG, Folic Acid 1 MG, MVI, adult with vitamin K 10 ML in 0.9 % Sodi... IV SCH (09:00)
[2016-06-04 10:29] LABS: Basophils % 0.2 %; Eosinophils % 0.1 %; Hematocrit 33.5 % (37.5-50.1); Hemoglobin 11.2 g/dL (12.9-16.9); Immature Granulocytes % 1.3 % (0-4); Lymphocytes # 1.4 K/mcL (0.6-4.6); Lymphocytes % 8.3 %; Mean Corpuscular HGB Conc 33.4 g/dL (31.6-35.5); Mean Corpuscular Hemoglobin 30.4 pg (28.0-33.3); Mean Corpuscular Volume 90.8 fL (83.0-100.0); Monocytes # 2.5 K/mcL (0.0-1.3); Monocytes % 14.8 %; Neutrophils # 12.5 K/mcL (1.6-8.9); Platelet Count 288 K/mcL (140-400); Red Blood Count 3.69 M/mcL (4.19-5.50); Red Cell Distribution Width 13.3 % (11.5-14.5); Segmented Neutrophils % 75.3 %
[2016-06-04] MEDS ORDERED: Water for inj. (sterile) 10 ML IV ONE (12:46)
--- NOTE | 2016-06-04 13:56 | Electrocardiograph Report ---
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
[2016-06-04] MEDS: Azithromycin 500 MG in D5% in Water 250 ML IVPB SCH (14:19)
--- NOTE | 2016-06-04 15:18 | Electrocardiograph Report ---
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
--- NOTE | 2016-06-04 16:35 | Internal Med Progress Note ---
Date of Encounter: 06/04/16 Time of Encounter: 16:32 - Assessment and plan (1) Fracture of femoral neck, right, closed Current Visit: Yes Status: Acute Assessment and plan: ortho has been consulted, s/p surgery , POD#1 appears more alert and awake today however sill confused, possible alcohol withdrawal will ovbserve closely,, currently saturating 98% on 2 l will continue the treatment for pneumonia. conitnue DVt prophylaxis. Qualifiers: Encounter type: initial encounter Qualified Code(s): S72.001A - Fracture of unspecified part of neck of right femur, initial encounter for closed fracture (2) Hip fracture Current Visit: Yes Status: Acute Assessment and plan: as above. continue post op care as per ortho Qualifiers: Encounter type: initial encounter Fracture type: closed Laterality: right Qualified Code(s): S72.001A - Fracture of unspecified part of neck of right femur, initial encounter for closed fracture (3) Leukocytosis Current Visit: Yes Status: Acute Assessment and plan: Worsening leukocytosis today, possible stress from surgery from yesterday. We will continue to monitor. Patient is also being treated empirically for pneumonia. However does not have fever or cough. ua seems clean and CT head is negative will repeat cbc in nimesh am Qualifiers: Qualified Code(s): D72.829 - Elevated white blood cell count, unspecified (4) Altered mental status Current Visit: Yes Status: Chronic Assessment and plan: unclear etiolohgy possibly from alcohol withdrawal. [facility], [facility] who is the POA also has dementia. as per the landlord, both the and live in very poor conditions. CT head, UA was clean, treating emperically for pneumonia at this time. We will continue to monitor. Qualifiers: Altered mental status type: disorientation Qualified Code(s): R41.0 - Disorientation, unspecified (5) Hypertension Current Visit: Yes Status: Chronic Assessment and plan: ulices restart lisinopril. continue to monitor. Qualifiers: Hypertension type: essential hypertension Qualified Code(s): I10 - Essential (primary) hypertension - Time Spent With Patient 25 - 35 minutes - Subjective Interval history: patient seen at the bedside, appears more alert and awake but is confused, shaking when he is trying to eat. was admitted for a fall and has hip fracture, s/p surgery , POD#1 ortho is on board. - Constitutional Vitals: Temp Pulse Resp BP Pulse Ox 97.9 F 93 18 121/65 94 L 06/04/16 15:56 06/04/16 15:56 06/04/16 15:56 06/04/16 15:56 06/04/16 15:56 General appearance: Present: A&O X 0 (does not know where he is, thinks it 1995 , was able to tell me correct month and date but not the year), disheveled , pleasant, no acute distress. Absent: answers questions appropriately Exam: - Head Head exam: Present: atraumatic, normocephalic - Eye Eye exam: Present: PERRL, conjuntiva pink, sclera anicteric - Neck Neck exam general surgery: Present: supple, trachea midline. Absent: lymphadenopathy - Respiratory Respiratory exam: Present: CTAB. Absent: accessory muscle use, rales, rhonchi, wheezes - Cardiovascular Cardiovascular exam: Present: RRR, +S1, +S2. Absent: diastolic murmur, gallop, rubs, systolic murmur - GI/Abdominal GI/Abdominal exam: Present: normal bowel sounds, soft, no peritoneal signs. Absent: distended, tenderness - Extremities Exam Extremities exam: Present: tenderness (does not have any tenderness with palpation of right hip, but does hurt when moving right leg), warm, radial pulses palpable and symetrical. Absent: calf tenderness, cyanotic, pedal edema - Neurological Exam Neurological exam: Present: altered. Absent: oriented X3, strengths equal and symetr throughout (unable to lift right leg at all), facial droop, speech deficit - Skin Skin exam: Present: dry, intact Internal Medicine: Result - Labs CBC & Chem 7: 06/04/16 10:14 06/04/16 04:48 Labs: Short CBC 06/04/16 06/04/16 Range/Units 04:48 10:14 WBC 16.6 H (4.3-11.1) K/mcL Hgb 11.0 L 11.2 L (12.9-16.9) g/dL Hct 32.2 L 33.5 L (37.5-50.1) % Plt Count 288 (140-400) K/mcL Neutrophils # 12.5 H (1.6-8.9) K/mcL BMP 06/04/16 04:48 Sodium 132 L Potassium 3.9 Chloride 100 Carbon Dioxide 26 BUN 13 Creatinine 0.96 Glucose 132 H Calcium 8.2 L - ABG Interpretation ABG results: PT/INR, D-dimer PT 14.1 Seconds (9.4-12.1) H 06/02/16 04:05 - VTE Documentation of Mechanical Device: Venous foot pump, device Consult Discharge Plan - Plan Referrals: Aline Joseph MD [Primary Care Provider] -
[2016-06-05 05:29] LABS: Basophils % 0.1 %; Eosinophils # 0.1 K/mcL (0.0-0.6); Eosinophils % 0.9 %; Hematocrit 31.3 % (37.5-50.1); Hemoglobin 10.4 g/dL (12.9-16.9); Immature Granulocytes % 1.1 % (0-4); Lymphocytes # 1.8 K/mcL (0.6-4.6); Lymphocytes % 13.1 %; Mean Corpuscular HGB Conc 33.2 g/dL (31.6-35.5); Mean Corpuscular Hemoglobin 30.2 pg (28.0-33.3); Mean Platelet Volume 9.6 fL (9.4-12.4); Monocytes % 14.8 %; Neutrophils # 9.3 K/mcL (1.6-8.9); Platelet Count 307 K/mcL (140-400); Red Blood Count 3.44 M/mcL (4.19-5.50); Red Cell Distribution Width 13.2 % (11.5-14.5)
[2016-06-05 05:44] LABS: BUN/Creatinine Ratio 14 (6-26); Blood Urea Nitrogen 13 mg/dL (8-26); Carbon Dioxide 27 mEq/L (19-29); Chloride 100 mEq/L (98-109); Glucose 103 mg/dL (70-99); Osmolality,Calculated 280 (280-300); Potassium 3.8 mEq/L (3.5-4.5); Sodium 135 mEq/L (136-145); eGFR For African Americans > 60 (> 60); eGFR For Non-African Americans > 60 (> 60)
[2016-06-05] MEDS: *HR* Heparin 5,000 UNIT/ML VIAL SQ SCH ×3 (05:54→21:54)
--- NOTE | 2016-06-05 06:45 | Orthopedics Progress Note ---
Date of Encounter: 06/05/16 Time of Encounter: 06:44 Subjective Interval history: patient doing well no complaints afvss operative extremity dressing c/d/i calves nt NVI continue with postop care hct 31 ortho stable for dc Objective Vital signs: Vital Signs Temp Pulse Resp BP Pulse Ox 06/05/16 03:46 98.2 F 85 16 171/81 99 06/04/16 23:46 98.4 F 83 17 148/71 100 06/04/16 20:00 98.6 F 86 19 150/72 98 06/04/16 15:56 97.9 F 93 18 121/65 94 L 06/04/16 15:08 98.0 F 93 18 126/84 98 06/04/16 13:00 98.3 F 97 20 154/77 95 06/04/16 10:54 98.3 F 82 18 129/83 97 06/04/16 08:16 99 06/04/16 07:40 98.4 F 84 20 146/80 95 Intake and Output 06/04/16 06/04/16 06/05/16 15:59 23:59 07:59 Intake Total 100 / 100 50 / 50 Output Total 1050 / 1050 850 / 850 Balance -950 / -950 -800 / -800 Intake: IV Fluids 100 / 100 Water for inj. (sterile) 10 ML As IV .STK-MED ONE Rx#:[id number] Rocephin 1,000 MG In 100 / 100 Dextrose 5% (Minibag+) 100 ML 100 ML @ 200 mls/ hr IVPB Q12HR [facility] Rx#: [id number] Oral 50 / 50 Output: Catheter 1050 / 1050 850 / 850 Other: Blood Glucose* 140 128 - Labs CBC & BMP: 06/05/16 04:30 06/05/16 04:30 Labs: Abnormal lab results WBC 13.4 K/mcL (4.3-11.1) H 06/05/16 04:30 RBC 3.44 M/mcL (4.19-5.50) L 06/05/16 04:30 Hgb 10.4 g/dL (12.9-16.9) L 06/05/16 04:30 Hct 31.3 % (37.5-50.1) L 06/05/16 04:30 Neutrophils # 9.3 K/mcL (1.6-8.9) H 06/05/16 04:30 Monocytes # 2.0 K/mcL (0.0-1.3) H 06/05/16 04:30 PT 14.1 Seconds (9.4-12.1) H 06/02/16 04:05 Sodium 135 mEq/L (136-145) L 06/05/16 04:30 Glucose 103 mg/dL (70-99) H 06/05/16 04:30 POC Glucose 156 (58-89) H 06/04/16 16:18 Hemoglobin A1c 5.8 % (-5.6) H 06/02/16 05:08 Calcium 8.0 mg/dL (8.6-10.8) L 06/05/16 04:30 Total Bilirubin 1.7 mg/dL (0.2-1.2) H 06/01/16 20:00 Albumin 3.1 g/dL (3.5-5.0) L 06/01/16 20:00 Globulin 4.0 g/dL (2.4-3.5) H 06/01/16 20:00 Albumin/Globulin Ratio 0.8 (1.1-2.2) L 06/01/16 20:00 Vitamin B12 204 pg/mL (213-816) L 06/02/16 05:08 Urine Protein 30 mg/dL (Neg-Trace) H 06/01/16 21:32 Urine Ketones Trace mg/dL (Negative) H 06/01/16 21:32 Urine Microscopic RBC 3-5 per hpf (0-3) H 06/01/16 21:32 Ur Squamous Epith Cells Many per lpf (None-Few) H 06/01/16 21:32 - VTE Documentation of Mechanical Device: Venous foot pump, device Consult Discharge Plan - Plan Referrals: Aline Joseph MD [Primary Care Provider] -
[2016-06-05] MEDS: Insulin LISPRO 300 UNITS/3 ML VIAL SQ SCH ×4 (08:43→21:56)
[2016-06-05] MEDS: Nicotine 21 MG PATCH.TD24 TD SCH (08:52)
[2016-06-05] MEDS: Ascorbic Acid 500 MG TABLET PO SCH ×2 (08:52→18:02)
[2016-06-05] MEDS: Pantoprazole 40 MG VIAL IVP SCH (08:52)
[2016-06-05] MEDS: Multivit/Ca/Min/Fe/FA 1 TAB TABLET PO SCH (08:52)
[2016-06-05] MEDS: Azithromycin 500 MG in D5% in Water 250 ML IVPB SCH (13:23)
--- NOTE | 2016-06-05 16:35 | Internal Med Progress Note ---
Date of Encounter: 06/05/16 Time of Encounter: 16:33 - Assessment and plan (1) Fracture of femoral neck, right, closed Current Visit: Yes Status: Acute Assessment and plan: ortho has been consulted, s/p surgery , POD#2 appears more alert and awake today however sill confused. ON [facility] protocol for alcohol withdrawal will continue the treatment for pneumonia. conitnue DVt prophylaxis. Qualifiers: Encounter type: initial encounter Qualified Code(s): S72.001A - Fracture of unspecified part of neck of right femur, initial encounter for closed fracture (2) Hip fracture Current Visit: Yes Status: Acute Assessment and plan: as above. continue post op care as per ortho Qualifiers: Encounter type: initial encounter Fracture type: closed Laterality: right Qualified Code(s): S72.001A - Fracture of unspecified part of neck of right femur, initial encounter for closed fracture (3) Leukocytosis Current Visit: Yes Status: Acute Assessment and plan: leucocytsosi has improved, possible stress from surgery from yesterday. We will continue to monitor. Patient is also being treated empirically for pneumonia. However does not have fever or cough. ua seems clean and CT head is negative will change to oral antibiotics at mo. Qualifiers: Qualified Code(s): D72.829 - Elevated white blood cell count, unspecified (4) Altered mental status Current Visit: Yes Status: Chronic Assessment and plan: unclear etiolohgy possibly from alcohol withdrawal. as per the [facility] staff, nimesh who is the POA also has dementia. as per the landlord, both the and live in very poor conditions. CT head, UA was clean, treating emperically for pneumonia at this time. We will continue to monitor. Qualifiers: Altered mental status type: disorientation Qualified Code(s): R41.0 - Disorientation, unspecified (5) Hypertension Current Visit: Yes Status: Chronic Assessment and plan: ulices restart lisinopril. continue to monitor. Qualifiers: Hypertension type: essential hypertension Qualified Code(s): I10 - Essential (primary) hypertension - Time Spent With Patient 25 - 35 minutes - Subjective Interval history: patient seen at the bedside, appears more alert and awake but is confused, no complains today was admitted for a fall and has hip fracture, s/p surgery , POD#2 ortho is on board. - Constitutional Vitals: Temp Pulse Resp BP Pulse Ox 97.9 F 82 16 150/85 100 06/05/16 14:37 06/05/16 14:37 06/05/16 14:37 06/05/16 14:37 06/05/16 14:37 General appearance: Present: A&O X 0 (does not know where he is, thinks it 1995 , was able to tell me correct month and date but not the year), disheveled , pleasant, no acute distress. Absent: answers questions appropriately Exam: - Head Head exam: Present: atraumatic, normocephalic - Eye Eye exam: Present: PERRL, conjuntiva pink, sclera anicteric - Neck Neck exam general surgery: Present: supple, trachea midline. Absent: lymphadenopathy - Respiratory Respiratory exam: Present: CTAB. Absent: accessory muscle use, rales, rhonchi, wheezes - Cardiovascular Cardiovascular exam: Present: RRR, +S1, +S2. Absent: diastolic murmur, gallop, rubs, systolic murmur - GI/Abdominal GI/Abdominal exam: Present: normal bowel sounds, soft, no peritoneal signs. Absent: distended, tenderness - Extremities Exam Extremities exam: Present: tenderness (does not have any tenderness with palpation of right hip, but does hurt when moving right leg), warm, radial pulses palpable and symetrical. Absent: calf tenderness, cyanotic, pedal edema - Neurological Exam Neurological exam: Present: altered. Absent: oriented X3, strengths equal and symetr throughout (unable to lift right leg at all), facial droop, speech deficit - Skin Skin exam: Present: dry, intact Internal Medicine: Result - Labs CBC & Chem 7: 06/05/16 04:30 06/05/16 04:30 Labs: Short CBC 06/05/16 Range/Units 04:30 WBC 13.4 H (4.3-11.1) K/mcL Hgb 10.4 L (12.9-16.9) g/dL Hct 31.3 L (37.5-50.1) % Plt Count 307 (140-400) K/mcL Neutrophils # 9.3 H (1.6-8.9) K/mcL BMP 06/05/16 04:30 Sodium 135 L Potassium 3.8 Chloride 100 Carbon Dioxide 27 BUN 13 Creatinine 0.91 Glucose 103 H Calcium 8.0 L - ABG Interpretation ABG results: PT/INR, D-dimer PT 14.1 Seconds (9.4-12.1) H 06/02/16 04:05 - VTE Documentation of Mechanical Device: Venous foot pump, device Consult Discharge Plan - Plan Referrals: Aline Joseph MD [Primary Care Provider] -
[2016-06-05] MEDS ORDERED: Acetaminophen 325 MG TABLET PO PRN (22:06)
[2016-06-06] MEDS: *HR* Heparin 5,000 UNIT/ML VIAL SQ SCH (06:17)
[2016-06-06] MEDS: Insulin LISPRO 300 UNITS/3 ML VIAL SQ SCH ×2 (08:05→12:21)
[2016-06-06] MEDS: Pantoprazole 40 MG VIAL IVP SCH (08:06)
[2016-06-06] MEDS: Nicotine 21 MG PATCH.TD24 TD SCH (08:06)
[2016-06-06] MEDS: Ascorbic Acid 500 MG TABLET PO SCH (08:06)
[2016-06-06] MEDS: Multivit/Ca/Min/Fe/FA 1 TAB TABLET PO SCH (08:07)
--- NOTE | 2016-06-06 09:42 | Discharge Summary ---
Date of Encounter: 06/06/16 Time of Encounter: 09:39 - Discharge Diagnosis (1) Fracture of femoral neck, right, closed Priority: Primary Status: Acute Qualifiers: Encounter type: initial encounter Qualified Code(s): S72.001A - Fracture of unspecified part of neck of right femur, initial encounter for closed fracture (2) Hip fracture Priority: Primary Status: Acute Qualifiers: Encounter type: initial encounter Fracture type: closed Laterality: right Qualified Code(s): S72.001A - Fracture of unspecified part of neck of right femur, initial encounter for closed fracture (3) Leukocytosis Priority: Primary Status: Acute Qualifiers: Leukocytosis type: unspecified Qualified Code(s): D72.829 - Elevated white blood cell count, unspecified (4) Altered mental status Priority: Secondary Status: Chronic Qualifiers: Altered mental status type: disorientation Qualified Code(s): R41.0 - Disorientation, unspecified (5) Hypertension Priority: Secondary Status: Chronic Qualifiers: Hypertension type: essential hypertension Qualified Code(s): I10 - Essential (primary) hypertension - Discharge Medications Prescriptions: Amoxicillin/Clavulanate [Augmentin] 875 mg PO BIDWM #6 tablet Home Medications: Aspirin [Lo-Dose Aspirin EC] 81 mg PO DAILY 06/02/16 [History] Atorvastatin [Lipitor] 40 mg PO DAILY 06/02/16 [History] Ezetimibe [Zetia] 10 mg PO DAILY 06/02/16 [History] Lisinopril [Zestril] 10 mg PO DAILY 06/02/16 [History] Lisinopril-HCTZ 10-12.5 [Prinzide 10-12.5] 1 tab PO DAILY 06/02/16 [History] Amoxicillin/Clavulanate [Augmentin] 875 mg PO BIDWM #6 tablet 06/06/16 [Rx] Allergies/Adverse Reactions: Allergies No Known Allergies Allergy (Verified 06/01/16 19:41) Date of admission: 06/02/16 01:02 Primary care physician: Aline Joseph MD Consults: 06/03/16 10:14 Consult to Nurse Navigator [CONS] Routine Comment: ortho navigator Consult to Occupational Therapy [CONS] Routine Comment: Evaluate, develop and implement POC Consult to Physical Therapy [CONS] Routine Comment: Evaluate, develop and implement POC RT Post Op Consult [CONS] Routine Discharging clinician: Jessica Shin Anticipated date of discharge: 06/06/16 - Patient Status Disposition: Transfer Inpatient Rehab Fac Condition: Fair Functional capacity at discharge: uses cane/walker Overall status at discharge: patient is progressing back to baseline - Discharge Instructions Follow Up With: Aline Joseph MD [Primary Care Provider] - - Diet and Activity Activity: as per physical therapy Diet: advance to your usual diet Interval History: Mr. Ellis is a 75 year old male who presents to emergency department after sustaining a s/p fall onto right hip, CT demonstrated impacted right femoral neck fracture Orthopedic surgeon consulted, he underwent Right hip hemiarthroplasty on . post op care was managed by ortho. he appeared very confused at the time of admission, has h/o alcohol abuse, the who is the POA and who lives with him also has dementia, hence administrative consent with 2 attendings was taken for the surgery. CT head done shows no abnormality. unclear etiology for confusion which seemed to improve slightly after the surgery. ua is clear, mild leucocytosis and CXR shows b/l ate;ectasis vs pneumonia was emperically treated for pneumonia as he is a poor historian and confused. he was also treated for alcohol withdrawal with CIWA protocol and ativan. he is doing well after the surgery, hemodynamically stable, he is being dc today to inpt. rehab. ulices give oral levoflox for his pneumonia at the time of dc. Hospital course: Mr. Ellis is a 75 year old male Time spent discussing smoking cessation with patient: more than 10 minutes - Time Spent with Patient Total time spent providing and/or coordinating discharge services: Greater than 30 minutes - Constitutional Vitals: Temp Pulse Resp BP Pulse Ox 97.7 F 89 16 146/78 96 06/06/16 06:32 06/06/16 06:32 06/06/16 06:32 06/06/16 06:32 06/06/16 06:32 General appearance: Present: A&O X 0 (does not know where he is, thinks it 1995 , was able to tell me correct month and date but not the year), disheveled , pleasant, no acute distress. Absent: answers questions appropriately Exam: - Head Head exam: Present: atraumatic, normocephalic - Eye Eye exam: Present: PERRL, conjuntiva pink, sclera anicteric - Neck Neck exam general surgery: Present: supple, trachea midline. Absent: lymphadenopathy - Respiratory Respiratory exam: Present: CTAB. Absent: accessory muscle use, rales, rhonchi, wheezes - Cardiovascular Cardiovascular exam: Present: RRR, +S1, +S2. Absent: diastolic murmur, gallop, rubs, systolic murmur - GI/Abdominal GI/Abdominal exam: Present: normal bowel sounds, soft, no peritoneal signs. Absent: distended, tenderness - Extremities Exam Extremities exam: Present: tenderness (does not have any tenderness with palpation of right hip, but does hurt when moving right leg), warm, radial pulses palpable and symetrical. Absent: calf tenderness, cyanotic, pedal edema - Neurological Exam Neurological exam: Present: altered. Absent: oriented X3, strengths equal and symetr throughout (unable to lift right leg at all), facial droop, speech deficit - Skin Skin exam: Present: dry, intact - VTE Documentation of Mechanical Device: Venous foot pump, device
--- NOTE | 2016-06-06 09:43 | Physician Discharge Referral ---
ExtendedCare Referral Info Transfer To: [facility] Provider in Charge: muriel dorsey Institutional Level of Care: Intermediate - MR - Diagnosis (1) Fracture of femoral neck, right, closed Status: Acute (2) Hip fracture Status: Acute (3) Leukocytosis Status: Acute (4) Altered mental status Status: Chronic (5) Hypertension Status: Chronic - Transfer Medications Prescriptions: Amoxicillin/Clavulanate [Augmentin] 875 mg PO BIDWM #6 tablet Home Medications: Aspirin [Lo-Dose Aspirin EC] 81 mg PO DAILY 06/02/16 [History] Atorvastatin [Lipitor] 40 mg PO DAILY 06/02/16 [History] Ezetimibe [Zetia] 10 mg PO DAILY 06/02/16 [History] Lisinopril [Zestril] 10 mg PO DAILY 06/02/16 [History] Lisinopril-HCTZ 10-12.5 [Prinzide 10-12.5] 1 tab PO DAILY 06/02/16 [History] Amoxicillin/Clavulanate [Augmentin] 875 mg PO BIDWM #6 tablet 06/06/16 [Rx] Allergies/Adverse Reactions: Allergies No Known Allergies Allergy (Verified 06/01/16 19:41) - Respiratory Orders Smoking Cessation: Smoking cessation has been advised. For more information, call the [employer] Tobacco Quit Line at 0-295-SDRU-NOW. - Advance Directives Code Status: Full Code - Mobility Orders Chair, Ambulate - Rehabiliation Orders Rehab Potential: Fair Rehab Orders: Evaluation for Physical Therapy, Evaluation for Occupational Therapy - Diet Orders Regular CERTIFICATION: I certify that the transfer of the above named patient to an Extended Care Facility is necessary for the continuing treatment of the diagnosis listed. The above information is true and accurate reflection of patient's current condition. Confidential - Redisclosure prohibited without a patient's written consent.
[2016-06-06 11:46] VITALS: BP 177/75
== END 2016-06-06 15:08 | DRG 301 ==
LOC: EMEROO 19:39 → 3NENU 19:39 → SUATTDRO 06-02 01:02
PROVIDERS: ADMIT Internal Medicine; ATTEND Internal Medicine Endocrinology, Diabetes & Metabolism

== ENCOUNTER 2016-06-15 17:19 | Inpatient (IN) ==
[2016-06-15 18:53] LABS: Basophils # 0.1 K/mcL (0.0-0.2); Basophils % 0.3 %; Eosinophils # 0.1 K/mcL (0.0-0.6); Eosinophils % 0.2 %; Hematocrit 36.6 % (37.5-50.1); Hemoglobin 11.9 g/dL (12.9-16.9); Immature Granulocytes % 1.8 % (0-4); Immature Platelets 3.7 % (1.1-6.1); Lymphocytes % 4.9 %; Mean Corpuscular HGB Conc 32.5 g/dL (31.6-35.5); Mean Corpuscular Hemoglobin 30.4 pg (28.0-33.3); Mean Corpuscular Volume 93.6 fL (83.0-100.0); Mean Platelet Volume 9.6 fL (9.4-12.4); Monocytes # 1.6 K/mcL (0.0-1.3); Monocytes % 7.6 %; Neutrophils # 17.5 K/mcL (1.6-8.9); Platelet Count 821 K/mcL (140-400); Red Blood Count 3.91 M/mcL (4.19-5.50); Red Cell Distribution Width 13.7 % (11.5-14.5); Segmented Neutrophils % 85.2 %
[2016-06-15 18:58] LABS: INR 1.3; Prothrombin Time 14.5 Seconds (9.4-12.1)
[2016-06-15 19:01] LABS: Activated Partial Thrombo Time 28.9 Seconds (26.0-36.0)
[2016-06-15 19:07] LABS: Albumin/Globulin Ratio 0.6 (1.1-2.2); Bilirubin,Total 0.7 mg/dL (0.2-1.2); Calcium 10.2 mg/dL (8.6-10.8); Globulin 4.9 g/dL (2.4-3.5); Total Protein 7.9 g/dL (6.0-8.3)
[2016-06-15] MEDS ORDERED: 0.9 % Sodium Chloride 500 ML IVC ONE (19:14)
--- NOTE | 2016-06-15 19:19 | Emergency Department Note ---
Disposition Clinical Impression: Acute kidney injury Leukocytosis Qualifiers: Leukocytosis type: bandemia Qualified Code(s): D72.825 - Bandemia Disposition: Admitted As Inpatient Referrals: NO,PCP [Primary Care Provider] - Forms: ED Satisfaction Letter General Adult HPI - General Chief complaint: ED Shortness of Breath/Dyspnea Stated complaint: "APNNEA" PER SHELTER Source: patient, EMS Limitations: no limitations Nursing Notes Reviewed: Yes Vital Signs Reviewed: Yes - History of Present Illness HPI Narrative: Patient presents with complaint apneic episodes and low blood pressure. Per report patient was having episodes of lower blood pressure. Nursing at the [facility] states that he has had episodes where he stopped breathing. Patient denies chest pain but is not very verbal. Patient has had decreased by mouth intake at home. There is no report of vision changes Pain Scale: 5 - Related Data Home Medications Medication Instructions Recorded Confirmed Aspirin [Lo-Dose Aspirin EC] 81 mg PO DAILY 06/02/16 06/15/16 Lisinopril [Zestril] 10 mg PO DAILY 06/02/16 06/15/16 Lisinopril-HCTZ 10-12.5 [Prinzide 1 tab PO DAILY 06/02/16 06/15/16 10-12.5] Acetaminophen [Tylenol] 325 mg PO Q8H PRN 06/15/16 06/15/16 Amino Acids/Protein Hydrolys 30 ml PO QAM 06/15/16 06/15/16 [Pro-Stat Awc Liquid Packet] Atorvastatin Calcium [Lipitor] 20 mg PO HS 06/15/16 06/15/16 Docusate [Colace] 200 mg PO DAILY 06/15/16 06/15/16 Levofloxacin [Levaquin] 500 mg PO DAILY 06/15/16 06/15/16 Multivitamin [Multi-Day Vitamins] 1 each PO DAILY 06/15/16 06/15/16 Oxycodone HCl [Oxaydo] 5 - 10 mg PO Q4H PRN 06/15/16 06/15/16 Oxycodone HCl [Oxaydo] 5 mg PO QAM 06/15/16 06/15/16 Triamcinolone Acet 0.1% CRM 1 appl TP BID 06/15/16 06/15/16 [Kenalog] Allergies Allergy/AdvReac Type Severity Reaction Status Date / Time No Known Allergies Allergy Verified 06/01/16 19:41 Limitations: ROS unobtainable due to patients medical condition Past Medical History - Past Medical History Source: patient, obtained from family Medical history: Reports: arthritis, COPD, hyperlipidemia, hypertension Psychiatric history: Reports: no psych history - Social History Smoking Status: Unknown if ever smoked Smokeless Tobacco Status: No Alcohol use: Reports: unknown Drug use: Reports: unknown Physical Exam - General Limitations: no limitations General appearance: alert - Head Head exam: atraumatic, normocephalic, normal inspection - Eye Eye exam: Present: normal appearance, PERRL, EOMI - ENT ENT exam: normal exam, normal oropharynx, mucous membranes dry - Neck Neck exam: Present: normal inspection, full ROM, trachea midline - Chest Chest inspection: Present: normal inspection, symmetric chest wall rise - Respiratory Respiratory exam: Present: normal lung sounds bilaterally - Cardiovascular Cardiovascular exam: Present: regular rate, normal rhythm, normal heart sounds - Abdominal Exam Abdominal exam: Present: soft, Non-Tender. Absent: tenderness, distention, guarding, rebound, rigidity - Extremities Exam Extremities exam: Present: normal inspection, full ROM. Absent: tenderness, pedal edema - Back Exam Back exam: Present: normal inspection, full ROM. Absent: tenderness - Neurological Exam Neurological exam: Present: alert, oriented X3 - Psychiatric Psychiatric exam: Present: normal affect, normal mood - Skin Skin exam: Present: warm, dry, intact, normal color Course Vital Signs Temperature 98.0 F 06/15/16 17:21 Pulse Rate 76 06/15/16 17:21 Respiratory Rate 18 06/15/16 17:21 Blood Pressure 129/89 06/15/16 17:21 O2 Sat by Pulse Oximetry 97 06/15/16 17:21 Temperature 98.0 F 06/15/16 17:21 Pulse Rate 82 06/15/16 20:12 Respiratory Rate 18 06/15/16 20:12 Blood Pressure 95/63 06/15/16 20:12 O2 Sat by Pulse Oximetry 97 06/15/16 20:12 Oxygen Delivery Oxygen Delivery Room Air Medical Decision Making - Differential Diagnosis AR, pneumonia, CVA, urinary tract infection, dehydration - Lab Data Lab results reviewed: Yes I reviewed the patient's lab results. Result diagrams: 06/15/16 18:47 06/15/16 18:47 Lab Results 06/15/16 06/15/16 06/15/16 Range/Units 18:47 18:47 18:47 WBC 20.6 H (4.3-11.1) K/mcL RBC 3.91 L (4.19-5.50) M/mcL Hgb 11.9 L (12.9-16.9) g/dL Hct 36.6 L (37.5-50.1) % MCV 93.6 (83.0-100.0) fL MCH 30.4 (28.0-33.3) pg MCHC 32.5 (31.6-35.5) g/dL RDW 13.7 (11.5-14.5) % Plt Count 821 H (140-400) K/mcL MPV 9.6 (9.4-12.4) fL Immature Gran % 1.8 (0-4) % Seg Neutrophils % 85.2 % Lymphocytes % 4.9 % Monocytes % 7.6 % Eosinophils % 0.2 % Basophils % 0.3 % Neutrophils # 17.5 H (1.6-8.9) K/mcL Lymphocytes # 1.0 (0.6-4.6) K/mcL Monocytes # 1.6 H (0.0-1.3) K/mcL Eosinophils # 0.1 (0.0-0.6) K/mcL Basophils # 0.1 (0.0-0.2) K/mcL Immature Plt Fraction 3.7 (1.1-6.1) % PT 14.5 H (9.4-12.1) Seconds INR 1.3 APTT 28.9 (26.0-36.0) Seconds Sodium 143 (136-145) mEq/L Potassium 4.0 (3.5-4.5) mEq/L Chloride 104 (98-109) mEq/L Carbon Dioxide 26 (19-29) mEq/L BUN 80 H (8-26) mg/dL Creatinine 2.78 H (0.72-1.25) mg/dL Est GFR ( Amer) 27 L (> 60) Est GFR (Non-Af Amer) 22 L (> 60) BUN/Creatinine Ratio 29 H (6-26) Glucose 147 H (70-99) mg/dL Calculated Osmolality 323 H (280-300) Lactic Acid (0.5-2.2) mmol/L Calcium 10.2 (8.6-10.8) mg/dL Total Bilirubin 0.7 (0.2-1.2) mg/dL AST 86 H (5-34) Units/L ALT 185 H (0-55) Units/L Alkaline Phosphatase 117 (38-126) Units/L Troponin I (0-0.03) ng/mL Serum Total Protein 7.9 (6.0-8.3) g/dL Albumin 3.0 L (3.5-5.0) g/dL Globulin 4.9 H (2.4-3.5) g/dL Albumin/Globulin Ratio 0.6 L (1.1-2.2) Urine Color (Yellow) Urine Clarity (Clear) Urine pH (5.0-8.0) pH Units Ur Specific [place] (1.010-1.025) Urine Protein (Neg-Trace) mg/dL Urine Glucose (UA) (Normal) mg/dL Urine Ketones (Negative) mg/dL Urine Blood (Negative) Urine Nitrite (Negative) Urine Bilirubin (Negative) Urine Urobilinogen (Normal) mg/dL Ur Leukocyte Esterase (Negative) Urine Microscopic RBC (0-3) per hpf Urine Microscopic WBC (0-3) per hpf Ur Squamous Epith Cells (None-Few) per lpf Urine Bacteria (None-Few) per hpf Hyaline Casts (None-Few) per lpf Ur Culture Indicated? (NO) 06/15/16 06/15/16 06/15/16 Range/Units 18:47 18:47 19:30 WBC (4.3-11.1) K/mcL RBC (4.19-5.50) M/mcL Hgb (12.9-16.9) g/dL Hct (37.5-50.1) % MCV (83.0-100.0) fL MCH (28.0-33.3) pg MCHC (31.6-35.5) g/dL RDW (11.5-14.5) % Plt Count (140-400) K/mcL MPV (9.4-12.4) fL Immature Gran % (0-4) % Seg Neutrophils % % Lymphocytes % % Monocytes % % Eosinophils % % Basophils % % Neutrophils # (1.6-8.9) K/mcL Lymphocytes # (0.6-4.6) K/mcL Monocytes # (0.0-1.3) K/mcL Eosinophils # (0.0-0.6) K/mcL Basophils # (0.0-0.2) K/mcL Immature Plt Fraction (1.1-6.1) % PT (9.4-12.1) Seconds INR APTT (26.0-36.0) Seconds Sodium (136-145) mEq/L Potassium (3.5-4.5) mEq/L Chloride (98-109) mEq/L Carbon Dioxide (19-29) mEq/L BUN (8-26) mg/dL Creatinine (0.72-1.25) mg/dL Est GFR ( Amer) (> 60) Est GFR (Non-Af Amer) (> 60) BUN/Creatinine Ratio (6-26) Glucose (70-99) mg/dL Calculated Osmolality (280-300) Lactic Acid 1.2 (0.5-2.2) mmol/L Calcium (8.6-10.8) mg/dL Total Bilirubin (0.2-1.2) mg/dL AST (5-34) Units/L ALT (0-55) Units/L Alkaline Phosphatase (38-126) Units/L Troponin I 0.02 (0-0.03) ng/mL Serum Total Protein (6.0-8.3) g/dL Albumin (3.5-5.0) g/dL Globulin (2.4-3.5) g/dL Albumin/Globulin Ratio (1.1-2.2) Urine Color Dark Yellow (Yellow) Urine Clarity Cloudy A (Clear) Urine pH 5.0 (5.0-8.0) pH Units Ur Specific [place] 1.022 (1.010-1.025) Urine Protein Trace (Neg-Trace) mg/dL Urine Glucose (UA) Normal (Normal) mg/dL Urine Ketones Trace H (Negative) mg/dL Urine Blood Negative (Negative) Urine Nitrite Negative (Negative) Urine Bilirubin Small H (Negative) Urine Urobilinogen Normal (Normal) mg/dL Ur Leukocyte Esterase Negative (Negative) Urine Microscopic RBC 5-15 H (0-3) per hpf Urine Microscopic WBC 0-3 (0-3) per hpf Ur Squamous Epith Cells Many H (None-Few) per lpf Urine Bacteria None Seen (None-Few) per hpf Hyaline Casts Many H (None-Few) per lpf Ur Culture Indicated? NO (NO) - Radiology Data Radiology results reviewed: Yes I reviewed the patient's radiology results. Chest X-Ray 06/15/16 17:53 IMPRESSION: No acute process. Scarring or subsegmental atelectasis is noted the midlung zones bilaterally D/ / Yonatan Pelayo MD / Yonatan Pelayo MD Interpreting Provider: Yonatan Pelayo MD Head CT 06/15/16 17:53 IMPRESSION: No acute intracranial abnormality. Stable, moderate degree of generalized atrophy and small vessel disease in the cerebral white matter. D/ / Dank Araiza MD / Dank Araiza MD Interpreting Provider: Dank Araiza MD Chest X-Ray 06/15/16 17:53 IMPRESSION: No acute process. Scarring or subsegmental atelectasis is noted the midlung zones bilaterally D/ / Yonatan Pelayo MD / Yonatan Pelayo MD Interpreting Provider: Yonatan Pelayo MD Head CT 06/15/16 17:53 IMPRESSION: No acute intracranial abnormality. Stable, moderate degree of generalized atrophy and small vessel disease in the cerebral white matter. D/ / Dank Araiza MD / Dank Araiza MD Interpreting Provider: Dank Araiza MD Abdomen/Pelvis CT 06/15/16 20:36 IMPRESSION: 1. No acute abdominal or pelvic abnormality. 2. Uncomplicated cholelithiasis. 3. Atherosclerotic disease. 4. Please refer to separate chest CT report regarding thoracic findings, including noncalcified right middle lobe lung nodule measuring 1.6 x 1.4 cm. D/ : / 06/15/2016 21:28:55 Josue Gonzalez MD / earnold Interpreting Provider: Josue Gonzalez MD Chest CT 06/15/16 20:36 IMPRESSION: Right middle lobe mass, suspicious for pulmonary malignancy. Right pleural calcifications are present which may indicate prior asbestos exposure. There is possible round atelectasis in the right lower lobe. There are also tubular densities in the right lower lobe which are suggestive of bronchiectasis with mucoid impaction. Subsegmental atelectasis in the left lower lobe. D/ / Dank Araiza MD / Dank Araiza MD Interpreting Provider: Dank Araiza MD - EKG Data EKG #1 EKG attestation: Yes I reviewed and interpreted this EKG. EKG shows normal: sinus rhythm Rate: normal Rhythm: NSR Critical Care Time Total Critical Care Time: 45 Attestation: Critical care performed: Time is exclusive of separately billable procedures. Time includes: direct patient care, patient reassessment, coordination of patient care, interpretation of data (laboratory data, radiology data, and respiratory data), review of patient's medical records, medical consultation and documentation of patient care. Procedures included in critical care time: Procedures excluded from critical care time:
[2016-06-15 19:36] LABS: Bilirubin,Urine Small (Negative); Blood,Urine Negative (Negative); Clarity,Urine Cloudy (Clear); Color,Urine Dark Yellow (Yellow); Glucose,Urine (UA) Normal (Normal); Ketones,Urine Trace mg/dL (Negative); Leukocyte Esterase,Urine Negative (Negative); Nitrite,Urine Negative (Negative); Protein,Urine Trace mg/dL (Neg-Trace); Specific Gravity,Urine 1.022 (1.010-1.025); Urobilinogen,Urine Normal (Normal)
[2016-06-15 19:44] LABS: Bacteria,Urine None Seen per hpf (None-Few); Squamous Epithelial Cell,Urine Many per lpf (None-Few); WBC,Urine 0-3 per hpf (0-3)
[2016-06-15 19:52] LABS: Hyaline Casts,Urine Many per lpf (None-Few)
[2016-06-15] MEDS: 0.9 % Sodium Chloride 1,000 ML IVC SCH (23:54)
--- NOTE | 2016-06-16 01:55 | Internal Med History&Physical ---
Date of Encounter: 06/16/16 Time of Encounter: 01:54 Assessment and Plan (1) 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 Current visit: Yes Status: Acute New Diagnosis of mass in the right lung (radiologist suspects malignancy). Will consult pulmonary physician for further advice / biopsy. (2) Cholelithiasis Current visit: Yes Status: Acute We will obtain the ultrasound scan of the gallbladder to exclude cholelicystitis. Qualifiers: Cholelithiasis location: gallbladder Cholecystitis presence: without cholecystitis Biliary obstruction: without biliary obstruction Qualified Code(s): K80.20 - Calculus of gallbladder without cholecystitis without obstruction (3) Acute kidney injury Current visit: Yes Status: Acute BN to creatinine ratio is more than 20. I suspect a pre-renal cause (volume depletion) for acute kidney injury. Treated with IV fluids and monitor renal function. If the renal function is not improving, consider nephrology consultation (4) Leukocytosis Current visit: Yes Status: Acute Infection versus stress response. UA and CXR are negative. Blood cultures were sent. Will obtain gallbladder ultrasound to exclude cholecystitis. No obvious source of infection identified at this time and hence are not started on antibiotics. Qualifiers: Leukocytosis type: unspecified Qualified Code(s): D72.829 - Elevated white blood cell count, unspecified (5) Altered mental status Current visit: Yes Status: Chronic COuld be contributed by DIANNA. There was suspicion for dementia, during his last hospitalization. Monitor Qualifiers: Altered mental status type: disorientation Qualified Code(s): R41.0 - Disorientation, unspecified (6) Hypertension Current visit: Yes Status: Chronic Hold lisinopril due to acute kidney injury. Monitor blood pressure. Patient apparently had hypotension in the assisted. Qualifiers: Hypertension type: essential hypertension Qualified Code(s): I10 - Essential (primary) hypertension (7) Abnormal LFTs Current visit: Yes Status: Acute Activity secondary to hypertension versus cholelithiasis / cholecystitis. GB ultrasound scan. Monitor (8) DVT prophylaxis Current visit: Yes Status: Acute subQ heparin Internal Medicine - H&P: HPI Chief complaint: apneic episode Admitted From: Emergency Dept Plans for Post Hospital Care: Transfer Nursing Home Facility History of present illness: Mr. Ellis is a 75 year old male with past medical history significant for COPD, hyperlipidemia, hypertension, Right hip fracture s/p Right hip hemiarthroplasty (May 2016) and ?dementia. He was in assisted following his right hip fracture. Apparently the nurses in the assisted noted episodes where he stopped breathing. Per the note from the EMS, he had unlabored breathing on their arrival. Patient is confused and is not able to give clinical details. No family at the bedside. I have reviewed the ER physicians note. He was noted to have leukocytosis acute kidney injury and imaging showed acute intracranial abnormality; CT scan of the chest showed right middle lobe mass suspicious for pulmonary malignancy. Patient is admitted to the hospitalist service for further management. Past Med Surg Social Fam HX - Past Medical History Medical history: arthritis, COPD, hyperlipidemia, hypertension Psychiatric history: no psych history - Social History Smoking Status: Unknown if ever smoked Smokeless Tobacco Status: No Alcohol use: unknown Drug use: unknown - Additional Family History Additional family history: Not able to obtain family hx due to confusion Internal Medicine - H&P: Meds Aspirin [Lo-Dose Aspirin EC] 81 mg PO DAILY 06/02/16 [History] Lisinopril [Zestril] 10 mg PO DAILY 06/02/16 [History] Lisinopril-HCTZ 10-12.5 [Prinzide 10-12.5] 1 tab PO DAILY 06/02/16 [History] Acetaminophen [Tylenol] 325 mg PO Q8H PRN 06/15/16 [History] Amino Acids/Protein Hydrolys [Pro-Stat Awc Liquid Packet] 30 ml PO QAM 06/15/16 [History] Atorvastatin Calcium [Lipitor] 20 mg PO HS 06/15/16 [History] Docusate [Colace] 200 mg PO DAILY 06/15/16 [History] Levofloxacin [Levaquin] 500 mg PO DAILY 06/15/16 [History] Multivitamin [Multi-Day Vitamins] 1 each PO DAILY 06/15/16 [History] Oxycodone HCl [Oxaydo] 5 - 10 mg PO Q4H PRN 06/15/16 [History] Oxycodone HCl [Oxaydo] 5 mg PO QAM 06/15/16 [History] Triamcinolone Acet 0.1% CRM [Kenalog] 1 appl TP BID 06/15/16 [History] Allergies No Known Allergies Allergy (Verified 06/01/16 19:41) ROS unobtainable: due to mental status - Constitutional Vitals: Temp Pulse Resp BP Pulse Ox 99 F 86 24 116/65 94 L 06/15/16 23:53 06/15/16 23:53 06/15/16 23:53 06/15/16 23:53 06/15/16 23:53 Exam: General: Confused. Not in acute distress at the time of my evaluation HEENT: Oral mucosa is dry. No conjunctival palor or scleral icterus Neck: No obvious neck swellings Lungs: Clear to auscultation Cardiac: Regular rate and rhythm. No significant murmurs Abdomen: Soft, non tender. Bowel sounds present Neurological: Confused. Not able to follow commands. Able to move the extremities spontaneously. Psych: Confused. Not aggressive or agitated Extremities: no significant leg edema Skin: No generalized rash Internal Med - H&P Results - Labs CBC & Chem 7: 06/15/16 18:47 06/15/16 18:47 - EKG Data -: EKG Interpreted by Myself EKG shows normal: sinus rhythm Rate: normal - Impressions ITS Impressions Chest X-Ray 06/15/16 17:53 IMPRESSION: No acute process. Scarring or subsegmental atelectasis is noted the midlung zones bilaterally D/ / Yonatan Pelayo MD / Yonatan Pelayo MD Interpreting Provider: Yonatan Pelayo MD Head CT 06/15/16 17:53 IMPRESSION: No acute intracranial abnormality. Stable, moderate degree of generalized atrophy and small vessel disease in the cerebral white matter. D/ / Dank Araiza MD / Dank Araiza MD Interpreting Provider: Dank Araiza MD Abdomen/Pelvis CT 06/15/16 20:36 IMPRESSION: 1. No acute abdominal or pelvic abnormality. 2. Uncomplicated cholelithiasis. 3. Atherosclerotic disease. 4. Please refer to separate chest CT report regarding thoracic findings, including noncalcified right middle lobe lung nodule measuring 1.6 x 1.4 cm. D/ / 06/15/2016 21:28:55 Josue Gonzalez MD / earnold Interpreting Provider: Josue Gonzalez MD Chest CT 06/15/16 20:36 IMPRESSION: Right middle lobe mass, suspicious for pulmonary malignancy. Right pleural calcifications are present which may indicate prior asbestos exposure. There is possible round atelectasis in the right lower lobe. There are also tubular densities in the right lower lobe which are suggestive of bronchiectasis with mucoid impaction. Subsegmental atelectasis in the left lower lobe. D/ / Dank Araiza MD / Dank Araiza MD Interpreting Provider: Dank Araiza MD
[2016-06-16] MEDS ORDERED: Naloxone 0.4 MG/ML INJ IVP PRN (01:57)
[2016-06-16] MEDS ORDERED: *HR* OxyCODONE Immed Rel 5 MG TABLET PO PRN (01:59)
[2016-06-16] MEDS ORDERED: Acetaminophen 325 MG TABLET PO PRN (01:59)
[2016-06-16] MEDS: *HR* Heparin 5,000 UNIT/ML VIAL SQ SCH ×3 (05:31→21:19)
[2016-06-16 07:49] LABS: Basophils # 0.1 K/mcL (0.0-0.2); Basophils % 0.2 %; Eosinophils % 0.1 %; Hematocrit 35.3 % (37.5-50.1); Hemoglobin 11.2 g/dL (12.9-16.9); Immature Granulocytes % 1.8 % (0-4); Lymphocytes # 1.5 K/mcL (0.6-4.6); Lymphocytes % 7.3 %; Mean Corpuscular HGB Conc 31.7 g/dL (31.6-35.5); Mean Corpuscular Hemoglobin 29.8 pg (28.0-33.3); Mean Corpuscular Volume 93.9 fL (83.0-100.0); Monocytes # 1.8 K/mcL (0.0-1.3); Monocytes % 8.8 %; Neutrophils # 16.8 K/mcL (1.6-8.9); Platelet Count 757 K/mcL (140-400); Red Blood Count 3.76 M/mcL (4.19-5.50); Red Cell Distribution Width 13.8 % (11.5-14.5); Segmented Neutrophils % 81.8 %
[2016-06-16 08:04] LABS: Albumin 2.7 g/dL (3.5-5.0); Albumin/Globulin Ratio 0.6 (1.1-2.2); Bilirubin,Total 0.7 mg/dL (0.2-1.2); Calcium 9.2 mg/dL (8.6-10.8); Globulin 4.4 g/dL (2.4-3.5); Magnesium 2.2 mg/dL (1.6-2.6); Phosphorous 3.8 mg/dL (2.3-4.7); Potassium 3.7 mEq/L (3.5-4.5); Total Protein 7.1 g/dL (6.0-8.3)
[2016-06-16] MEDS: Aspirin Enteric Coated 81 MG Tablet PO SCH (10:15)
[2016-06-16] MEDS: Multivit/Ca/Min/Fe/FA 1 TAB TABLET PO SCH (10:15)
[2016-06-16] MEDS: *HR* OxyCODONE Immed Rel 5 MG TABLET PO SCH (10:15)
[2016-06-16] MEDS: Triamcinolone Acet 0.1% CRM 15 GM TUBE TP SCH ×2 (10:24→21:19)
[2016-06-16] MEDS: 0.9 % Sodium Chloride 1,000 ML IVC SCH ×3 (14:27→22:27)
[2016-06-17] MEDS: *HR* Heparin 5,000 UNIT/ML VIAL SQ SCH (05:58)
[2016-06-17] MEDS: 0.9 % Sodium Chloride 1,000 ML IVC SCH ×2 (06:27→08:04)
[2016-06-17] MEDS: Aspirin Enteric Coated 81 MG Tablet PO SCH (09:26)
[2016-06-17] MEDS: *HR* OxyCODONE Immed Rel 5 MG TABLET PO SCH (09:26)
[2016-06-17] MEDS: Multivit/Ca/Min/Fe/FA 1 TAB TABLET PO SCH (09:26)
[2016-06-17] MEDS: Triamcinolone Acet 0.1% CRM 15 GM TUBE TP SCH (09:26)
[2016-06-17 11:11] LABS: Basophils # 0.1 K/mcL (0.0-0.2); Basophils % 0.6 %; Eosinophils # 0.1 K/mcL (0.0-0.6); Eosinophils % 0.5 %; Hematocrit 32.9 % (37.5-50.1); Hemoglobin 10.7 g/dL (12.9-16.9); Immature Granulocytes % 1.2 % (0-4); Immature Platelets 2.8 % (1.1-6.1); Lymphocytes # 1.8 K/mcL (0.6-4.6); Lymphocytes % 12.5 %; Mean Corpuscular HGB Conc 32.5 g/dL (31.6-35.5); Mean Corpuscular Hemoglobin 30.3 pg (28.0-33.3); Mean Corpuscular Volume 93.2 fL (83.0-100.0); Monocytes # 1.4 K/mcL (0.0-1.3); Monocytes % 9.6 %; Neutrophils # 10.9 K/mcL (1.6-8.9); Platelet Count 682 K/mcL (140-400); Red Blood Count 3.53 M/mcL (4.19-5.50); Red Cell Distribution Width 13.8 % (11.5-14.5); Segmented Neutrophils % 75.6 %
[2016-06-17 11:52] LABS: Albumin 2.5 g/dL (3.5-5.0); Albumin/Globulin Ratio 0.6 (1.1-2.2); Calcium 8.8 mg/dL (8.6-10.8); Globulin 3.9 g/dL (2.4-3.5); Magnesium 2.1 mg/dL (1.6-2.6); Potassium 3.8 mEq/L (3.5-4.5); Total Protein 6.4 g/dL (6.0-8.3)
--- NOTE | 2016-06-17 12:24 | Discharge Summary ---
<Edwige Mcgovern - Last Filed: 06/17/16 12:20> Date of Encounter: 06/17/16 Time of Encounter: 12:20 - Discharge Diagnosis (1) 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 Priority: Primary Status: Acute Comments: New diagnosis CT chest without contrast with irregularly shaped lobular nodular density in middle fissure area of right middle lobe measuring 2.4 x 1.2 cm, this is suspicious for pulmonary malignancy Would recommend further follow up outpatient with biopsy once patient has recovered more from acute femur fracture (2) Acute kidney injury Priority: Primary Status: Resolved Comments: Patient presented with an abrupt decrease in GFR along with a BUN to creatinine ration of greater than 20 suggesting a pre-renal cause which is likely dehydration. Patient was volume resucitated and his BUN and creatinine ecreased. Patients kidney functioned has normalized prior to discharge. (3) Hypertension Priority: Secondary Status: Chronic Comments: Lisinopril held on admission due to DIANNA and need to avoid nephrotoxic drugs. Patient has been normotensive to mildly hypertensive. Feel hypotension reported from [facility] likely secondary to volume depletion. Will resume lisinopril at discharge. Qualifiers: Hypertension type: essential hypertension Qualified Code(s): I10 - Essential (primary) hypertension (4) Leukocytosis Priority: Secondary Status: Acute Comments: Likely acute phase reactant. May be secondary to passing of gallstones due or possible reaction from recent femur fracture and marah placement Pateint remained afebrile. Chest xray and urinalysis with no evidence of infection. WBC decreased from 20.6 to 14.5 prior to discharge. Recommend continued monitoring and recheck CBC in one week Qualifiers: Leukocytosis type: unspecified Qualified Code(s): D72.829 - Elevated white blood cell count, unspecified (5) Cholelithiasis Priority: Secondary Status: Acute Comments: CT Abdomen/pelvis on 06/15 with evidence of gallstones. Gallbladder u/s on 06/16 with layering gallstones and biliary sludge in gallbladder lumen with suspected sludge ball near fundus. Gallbladder did not have dilation, wall thickening f pericholecystic fluid. Normal common duct at 0.3 cm. Would recommend consideration of outpatient consultation with surgeon for elective cholecystectomy. Qualifiers: Cholelithiasis location: gallbladder Cholecystitis presence: without cholecystitis Biliary obstruction: without biliary obstruction Qualified Code(s): K80.20 - Calculus of gallbladder without cholecystitis without obstruction (6) Abnormal LFTs Priority: Secondary Status: Acute Comments: Patient had elevated LFTs on admission. May eb secondary to underlying gallbladder disease with possibel passage of stone. AST had decreased to 60 from 76 and ALT had decreased to 126 from 160, there was no evidence of hyperbilirubinemia. Recommend continued monitoring as outpateint - Discharge Medications Prescriptions: Oxycodone HCl [Oxaydo] 5 - 10 mg PO Q4H PRN #10 tablet.orl PRN Reason: Pain Home Medications: Aspirin [Lo-Dose Aspirin EC] 81 mg PO DAILY 06/02/16 [History] Lisinopril [Zestril] 10 mg PO DAILY 06/02/16 [History] Acetaminophen [Tylenol] 325 mg PO Q8H PRN 06/15/16 [History] Amino Acids/Protein Hydrolys [Pro-Stat Awc Liquid Packet] 30 ml PO QAM 06/15/16 [History] Atorvastatin Calcium [Lipitor] 20 mg PO HS 06/15/16 [History] Docusate [Colace] 200 mg PO DAILY 06/15/16 [History] Multivitamin [Multi-Day Vitamins] 1 each PO DAILY 06/15/16 [History] Triamcinolone Acet 0.1% CRM [Kenalog] 1 appl TP BID 06/15/16 [History] Levofloxacin [Levaquin] 500 mg PO DAILY 1 Days 06/17/16 [Rx] Oxycodone HCl [Oxaydo] 5 - 10 mg PO Q4H PRN #10 tablet.orl 06/17/16 [Rx] Allergies/Adverse Reactions: Allergies No Known Allergies Allergy (Verified 06/01/16 19:41) Procedures/tests Complete & Pending: Procedures Performed prior 72 hours Category Date Time Status US gall bladder [US] Routine Exams 06/16/16 04:50 Completed ECG 12 lead ECG [ECG] Routine Y 06/15/16 17:27 Completed Date of admission: 06/16/16 01:57 Primary care physician: PCP NO Consults: 06/16/16 04:50 Consult to Pulmonology [CONS] Routine Consulting Provider: [facility] Reason for Consult: Right middle lobe mass Call Completed: No Discharging clinician: Jeffery Mera Anticipated date of discharge: 06/17/16 - Patient Status Disposition: Transfer SNF Condition: Good Functional capacity at discharge: bed bound Overall status at discharge: patient is progressing back to baseline - Discharge Instructions Follow Up With: NO,PCP [Primary Care Provider] - Additional Instructions: Appointment needs scheduled to evaluate mass density in R lung if appropriate - pulmonary appt - Diet and Activity Activity: as per physical therapy Diet: advance to your usual diet Hospital course: Mr. Ellis is a 75 year old male who presented to the emergency room from [facility] where he as for rehab after a right hip fracture due to concerns of possible apnea. On arrival, EMS did not witness any evidence of labored or difficulty breathing. On laboratory testing he was found to have an acute kidney injury and a leukocytosis. Imaging including CT abdomen/pelvis demonstrated gallstones and a right middle lobe mass suspicious for malignancy. He was resucitated with IV fluids and his kidney function returned to normal prior to discharge. There was no evidence of infection found and his WBC count decreased during hospital stay. A follow up gallbladder ultrasound did not demonstrate any evidence of gallbladder distension, wall thickening or pericholecystic fluid and did demonstrate gallbladder stones and sludge. Patient should have follow up consultation with pulmonology for new right middle lobe lung mass and surgery for discussion of elective cholecystectomy. Patient had no witnessed apenic episodes during hospital stay. On day of discharge, his vitals were stable. - Time Spent with Patient Total time spent providing and/or coordinating discharge services: - Constitutional Vitals: Temp Pulse Resp BP Pulse Ox 98.5 F 84 18 127/88 94 L 06/17/16 12:11 06/17/16 12:11 06/17/16 12:11 06/17/16 12:11 06/17/16 08:03 General appearance: Present: A&O X 1, no acute distress - Head Head exam: Present: atraumatic, normocephalic - Eye Eye exam: Present: normal appearance. Absent: conjunctival injection - ENT ENT exam: Present: mucous membranes moist, normal external ear exam - Neck Neck exam general surgery: Present: supple, trachea midline - Respiratory Respiratory exam: Present: CTAB. Absent: rales, rhonchi, stridor, wheezes - Cardiovascular Cardiovascular exam: Present: RRR, +S1, +S2. Absent: clicks, diastolic murmur, gallop, rubs, systolic murmur - GI/Abdominal GI/Abdominal exam: Present: normal bowel sounds, soft. Absent: distended, guarding, rebound, tenderness - Extremities Exam Extremities exam: Present: normal capillary refill. Absent: cyanotic, pedal edema Additional comments: bandage in place right hip, c/d/i, no evidence of erythema or edema <Jeffery Mera - Last Filed: 06/17/16 14:03> - Discharge Diagnosis (1) Acute metabolic encephalopathy Priority: Primary Status: Acute (2) Leukocytosis Status: Acute Qualifiers: Leukocytosis type: unspecified Qualified Code(s): D72.829 - Elevated white blood cell count, unspecified (3) Cholelithiasis Status: Acute Qualifiers: Cholelithiasis location: gallbladder Cholecystitis presence: without cholecystitis Biliary obstruction: without biliary obstruction Qualified Code(s): K80.20 - Calculus of gallbladder without cholecystitis without obstruction (4) 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 Status: Acute (5) Hypertension Status: Chronic Qualifiers: Hypertension type: essential hypertension Qualified Code(s): I10 - Essential (primary) hypertension (6) Fracture of femoral neck, right, closed Priority: Secondary Status: Acute Qualifiers: Encounter type: subsequent encounter Qualified Code(s): S72.001D - Fracture of unspecified part of neck of right femur, subsequent encounter for closed fracture with routine healing Procedures/tests Complete & Pending: Procedures Performed prior 72 hours Category Date Time Status US gall bladder [US] Routine Exams 06/16/16 04:50 Completed ECG 12 lead ECG [ECG] Routine Y 06/15/16 17:27 Completed Date of admission: 06/16/16 01:57 Primary care physician: PCP NO Consults: 06/16/16 04:50 Consult to Pulmonology [CONS] Routine Consulting Provider: [facility] Reason for Consult: Right middle lobe mass Call Completed: No Hospital course: Mr. Ellis is a 75 year old male - Time Spent with Patient Total time spent providing and/or coordinating discharge services: 35min - Constitutional Vitals: Temp Pulse Resp BP Pulse Ox 98.5 F 84 18 127/88 94 L 06/17/16 12:11 06/17/16 12:11 06/17/16 12:11 06/17/16 12:11 06/17/16 08:03 - Attending Attestation I examined this patient and my medical decision-making was reviewed with the Resident Physician on 06/17/16. I agree with the documented findings, disposition and treatment plan as described except to the extent set forth below. Mr. Ellis is feeling OK. He seems to be back at baseline. Exam Alert. Comfortable Heart reg No wheeze Plan D/C to SNF Needs follow up of abnormal CT - mass like lesion.
--- NOTE | 2016-06-17 13:00 | Physician Discharge Referral ---
<Edwige Mcgovern - Last Filed: 06/17/16 13:00> ExtendedCare Referral Info Transfer To: [facility] Provider in Charge after Transfer: Other (half-way physician) Institutional Level of Care: Skilled - Diagnosis (1) 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 Status: Acute (2) Acute kidney injury Status: Resolved (3) Hypertension Status: Chronic (4) Leukocytosis Status: Acute (5) Cholelithiasis Status: Acute (6) Abnormal LFTs Status: Acute - Transfer Medications Prescriptions: Oxycodone HCl [Oxaydo] 5 - 10 mg PO Q4H PRN #10 tablet.orl PRN Reason: Pain Home Medications: Aspirin [Lo-Dose Aspirin EC] 81 mg PO DAILY 06/02/16 [History] Lisinopril [Zestril] 10 mg PO DAILY 06/02/16 [History] Acetaminophen [Tylenol] 325 mg PO Q8H PRN 06/15/16 [History] Amino Acids/Protein Hydrolys [Pro-Stat Awc Liquid Packet] 30 ml PO QAM 06/15/16 [History] Atorvastatin Calcium [Lipitor] 20 mg PO HS 06/15/16 [History] Docusate [Colace] 200 mg PO DAILY 06/15/16 [History] Multivitamin [Multi-Day Vitamins] 1 each PO DAILY 06/15/16 [History] Triamcinolone Acet 0.1% CRM [Kenalog] 1 appl TP BID 06/15/16 [History] Levofloxacin [Levaquin] 500 mg PO DAILY 1 Days 06/17/16 [Rx] Oxycodone HCl [Oxaydo] 5 - 10 mg PO Q4H PRN #10 tablet.orl 06/17/16 [Rx] Allergies/Adverse Reactions: Allergies No Known Allergies Allergy (Verified 06/01/16 19:41) - Respiratory Orders Smoking Cessation: Smoking cessation has been advised. For more information, call the [place] Tobacco Quit Line at 3-403-LVHU-NOW. CERTIFICATION: I certify that the transfer of the above named patient to an Extended Care Facility is necessary for the continuing treatment of the diagnosis listed. The above information is true and accurate reflection of patient's current condition. Confidential - Redisclosure prohibited without a patient's written consent. <Jeffery Mera - Last Filed: 06/17/16 13:55> - Respiratory Orders Oxygen / L per min (Maintain saturation greater than 90%) Smoking Cessation: Smoking cessation has been advised. For more information, call the [place] Tobacco Quit Line at 2-656-LTIB-NOW. - Ancillary Orders May use pressure relief devices daily prn, May consult with Dentist, [employer] Representatives, Educational Director PRN - Advance Directives Code Status: Full Code - Mobility Orders Ambulate - Rehabiliation Orders Rehab Potential: Fair Rehab Orders: Evaluation for Physical Therapy, Evaluation for Occupational Therapy - Treatments Skin tear care topically daily PRN per policy, May check for fecal impaction rectally daily PRN, Fleet enema rectally every other day PRN cleansing purposes - Diet Orders Cardiac (Diet as before.) CERTIFICATION: I certify that the transfer of the above named patient to an Extended Care Facility is necessary for the continuing treatment of the diagnosis listed. The above information is true and accurate reflection of patient's current condition. Confidential - Redisclosure prohibited without a patient's written consent.
[2016-06-17 18:02] VITALS: BP 116/70
--- NOTE | 2016-06-17 21:13 | Electrocardiograph Report ---
[place] [id number] Test Date: 2016-06-15 Pat Name: Carlo Ellis Department: 103 Room: [facility] Gender: M Roller Turner: : 1940 Requested By: Jeffery Mera Order Number: [id number] Reading MD: Yonatan Butterfield MD Measurements Intervals [place] Rate: 70 P: 30 MS: 126 QRS: 8 QRSD: 93 T: 12 QT: 402 QTc: 422 Interpretive Statements SINUS RHYTHM ARTIFACT PRESENT Electronically Signed On 06-17-2016 21:12:05 EDT by Yonatan Butterfield MD
== END 2016-06-17 14:25 | DRG 469 ==
LOC: EMEROO 17:19 → 2ANU 17:19
PROVIDERS: ADMIT Internal Medicine; ATTEND Internal Medicine

== ENCOUNTER 2016-06-25 20:04 | Inpatient (IN) ==
[2016-06-25] MEDS ORDERED: Piperacillin/Tazobactam 3.375 GM in D5% in Water (Mini-Bag+) 100 ML IVPB ONE (20:16)
[2016-06-25] MEDS ORDERED: Vancomycin 1,500 MG in D5% in Water 250 ML IVPB ONE (20:16)
--- NOTE | 2016-06-25 20:23 | Emergency Department Note ---
Disposition Clinical Impression: Hypernatremia, Hyperchloremia Sepsis Qualifiers: Sepsis type: sepsis due to unspecified organism Qualified Code(s): A41.9 - Sepsis, unspecified organism Pneumonia Qualifiers: Pneumonia type: due to unspecified organism Laterality: right Lung location: lower lobe of lung Qualified Code(s): J18.1 - Lobar pneumonia, unspecified organism Disposition: Admitted As Inpatient Condition: Serious Referrals: NO,PCP [Primary Care Provider] - Forms: Work/School Release, ED Satisfaction Letter Time of Disposition: 21:35 General Adult HPI - General Chief complaint: ED General Medical Stated complaint: unresponsive Time Seen by Provider: 06/25/16 20:16 Source: EMS Nursing Notes Reviewed: Yes Vital Signs Reviewed: Yes - History of Present Illness HPI Narrative: Patient sent 75-year-old male postop right hip surgery presents from [facility] secondary to unresponsiveness. Unknown time of onset. Nurse coming on shift at 7 PM states that she noticed irregular labs and contacted the physician who stated to send patient to ED secondary to being a full code. Currently no other information. Patient currently unresponsive. Onset (ago): unknown Pain Scale: 0 - Related Data Home Medications Medication Instructions Recorded Confirmed Aspirin [Lo-Dose Aspirin EC] 81 mg PO DAILY 06/02/16 06/25/16 Lisinopril [Zestril] 10 mg PO DAILY 06/02/16 06/25/16 Acetaminophen [Tylenol] 325 mg PO Q8H PRN 06/15/16 06/25/16 Amino Acids/Protein Hydrolys 30 ml PO QAM 06/15/16 06/25/16 [Pro-Stat Awc Liquid Packet] Atorvastatin Calcium [Lipitor] 20 mg PO HS 06/15/16 06/25/16 Docusate [Colace] 200 mg PO DAILY 06/15/16 06/25/16 Multivitamin [Multi-Day Vitamins] 1 each PO DAILY 06/15/16 06/25/16 Triamcinolone Acet 0.1% CRM 1 appl TP BID 06/15/16 06/25/16 [Kenalog] Haloperidol Lactate [Haldol] 1 mg IM BID PRN 06/25/16 06/25/16 Thiamine Mononitrate [Vitamin B-1] 100 mg PO DAILY 06/25/16 06/25/16 Previous Rx's Medication Instructions Recorded Oxycodone HCl [Oxaydo] 5 - 10 mg PO Q4H PRN #10 tablet.orl 06/17/16 Allergies Allergy/AdvReac Type Severity Reaction Status Date / Time No Known Allergies Allergy Verified 06/01/16 19:41 Limitations: ROS unobtainable due to patients medical condition Past Medical History - Past Medical History Source: old records reviewed Medical history: Reports: arthritis, COPD, hyperlipidemia, hypertension Psychiatric history: Reports: no psych history - Social History Smoking Status: Unknown if ever smoked Smokeless Tobacco Status: No Alcohol use: Reports: unknown Drug use: Reports: unknown Physical Exam Vital Signs Temperature 98.7 F 06/25/16 20:08 Pulse Rate 84 06/25/16 20:08 Respiratory Rate 24 06/25/16 20:08 Blood Pressure 85/40 06/25/16 20:08 O2 Sat by Pulse Oximetry 88 06/25/16 20:08 Temperature 98.7 F 06/25/16 20:08 Pulse Rate 84 06/25/16 20:08 Respiratory Rate 24 06/25/16 20:08 Blood Pressure 85/40 06/25/16 20:08 O2 Sat by Pulse Oximetry 90 06/25/16 20:18 Oxygen Delivery Oxygen Delivery Nasal Cannula -General Appearance: Patient is a 75-year-old male with a GCS of 9, still maintaining airway. -Neurological exam: Unable to obtain the contrary to condition - Head Head exam: atraumatic, normocephalic, normal inspection - Eye Eye exam: Present: normal appearance, PERRL, EOMI, negative for scleral icterus negative for conjunctival pallor - ENT ENT exam: normal exam, normal oropharynx, mucous membranes moist - Neck Neck exam: Present: normal inspection, full ROM, trachea midline, negative JVD - Chest Chest inspection: Present: Patient has bilateral equal rise and fall of chest wall. Non-tender to palpation. - Respiratory Respiratory exam: Lungs sounds coarse rhonchi and wheezing bilaterally with diminished lung sounds lower right lung field Cardiovascular Cardiovascular exam: Present: regular rate, normal rhythm, normal heart sounds, without murmurs rubs or gallops. - Abdominal Exam Abdominal exam: Present: soft, nondistended, Non-Tender light and deep palpation in all quadrants. Bowel sounds normoactive throughout all 4 quadrants. Negative for hyper or hyperresonance. - Extremities Exam Extremities exam: Present: normal inspection, full ROM - Psychiatric Psychiatric exam: Present: normal affect, normal mood - Skin Skin exam: Present: Cool diaphoretic and pale - General Limitations: altered mental status General appearance: alert - Head Head exam: atraumatic, normocephalic, normal inspection - Eye Eye exam: Present: normal appearance. Absent: scleral icterus - ENT ENT exam: mucous membranes dry Course - Reevaluation(s) Reevaluation #1: Patient with a past medical history for COPD, status post right hip surgery, hyperlipidemia and hypertension, concerning for sepsis, severe sepsis, acute anoxic/metabolic encephalopathy. Plan: Sepsis workup, BiPAP, DuoNeb, initiate antibiotic therapy, fluid resuscitation to correct hypotension, possible pressors and central line Time: 20:33 Reevaluation #2: Patient's labs: ABG shows a PCO2 of 26 and a PO2 of 50. Patient placed on BiPAP , CBC shows WBC of 20.9, CMP shows hypernatremia 159, hyperchloremia 127, elevated troponin of 0.06. Chest x-ray shows right middle and lower lobe pneumonia Patient started on antibiotic therapy of vancomycin and Zosyn, and is receiving up to 3 L of normal saline Time: 21:32 Reevaluation #3: Blood pressure 123/65. Patient not requiring pressors at this time Time: 22:30 - Consultations Consultation #1: Lab called with critical high troponin of 0.06 Time: 20:55 Consultation #2: Dr. Marie accepted for admission 2121 hrs Time: 21:24 Vital Signs Temperature 98.7 F 06/25/16 20:08 Pulse Rate 84 06/25/16 20:08 Respiratory Rate 24 06/25/16 20:08 Blood Pressure 85/40 06/25/16 20:08 O2 Sat by Pulse Oximetry 88 06/25/16 20:08 Temperature 100.1 F H 06/25/16 20:45 Pulse Rate 96 06/25/16 22:49 Respiratory Rate 39 06/25/16 22:49 Blood Pressure 123/87 06/25/16 22:49 O2 Sat by Pulse Oximetry 95 06/25/16 22:49 Oxygen Delivery Oxygen Delivery Bipap Medical Decision Making - Medical Records Medical records reviewed: Yes I reviewed the patient's medical records. - Lab Data Lab results reviewed: Yes I reviewed the patient's lab results. Lab results narrative: Short CBC 06/25/16 Range/Units 20:23 WBC 28.9 H (4.3-11.1) K/mcL Hgb 11.4 L (12.9-16.9) g/dL Hct 36.0 L (37.5-50.1) % Plt Count 414 H (140-400) K/mcL Neutrophils # 26.6 H (1.6-8.9) K/mcL BMP 06/25/16 Range/Units 20:23 Sodium 159 H (136-145) mEq/L Potassium 3.9 (3.5-4.5) mEq/L Chloride 127 H (98-109) mEq/L Carbon Dioxide 18 L (19-29) mEq/L BUN 114 H (8-26) mg/dL Creatinine 4.16 H (0.72-1.25) mg/dL Glucose 130 H (70-99) mg/dL Calcium 9.4 (8.6-10.8) mg/dL Cardiac Enzymes 06/25/16 Range/Units 20:23 Troponin I 0.06 H* (0-0.03) ng/mL Liver Function 06/25/16 Range/Units 20:23 Total Bilirubin 0.9 (0.2-1.2) mg/dL Direct Bilirubin 0.5 (0.0-0.5) mg/dL AST 98 H (5-34) Units/L ALT 53 (0-55) Units/L Alkaline Phosphatase 157 H (38-126) Units/L Albumin 2.1 L (3.5-5.0) g/dL Urine 06/25/16 Range/Units 20:55 Urine Color Yellow (Yellow) Urine Clarity Cloudy A (Clear) Urine pH 5.0 (5.0-8.0) pH Units Ur Specific Commerce 1.020 (1.010-1.025) Urine Protein 30 H (Neg-Trace) mg/dL Urine Glucose (UA) Normal (Normal) mg/dL Result diagrams: 06/25/16 20:23 06/25/16 20:23 Lab Results 06/25/16 06/25/16 06/25/16 Range/Units 20:23 20:23 20:23 WBC 28.9 H (4.3-11.1) K/mcL RBC 3.73 L (4.19-5.50) M/mcL Hgb 11.4 L (12.9-16.9) g/dL Hct 36.0 L (37.5-50.1) % MCV 96.5 (83.0-100.0) fL MCH 30.6 (28.0-33.3) pg MCHC 31.7 (31.6-35.5) g/dL RDW 14.6 H (11.5-14.5) % Plt Count 414 H (140-400) K/mcL MPV 11.5 (9.4-12.4) fL Seg Neutrophils % 92.0 % Lymphocytes % 6.0 % Monocytes % 2.0 % Neutrophils # 26.6 H (1.6-8.9) K/mcL Lymphocytes # 1.7 (0.6-4.6) K/mcL Monocytes # 0.6 (0.0-1.3) K/mcL Reactive Lymphocytes Present A (Not Present) Platelet Estimate Slight increase H (Normal) Polychromasia 1+ A (Not Present) PT 18.1 H (9.4-12.1) Seconds INR 1.7 APTT 30.8 (26.0-36.0) Seconds ABG pH (7.32-7.45) pH Units ABG pCO2 (35-45) mmHg ABG pO2 (85-104) mmHg ABG HCO3 (21-27) mEQ/L ABG Total CO2 (20-26) mEq/L ABG O2 Saturation (95-98) % ABG Base Excess (-2.0 to 3.0) mEq/L Liter Flow L/MIN Blood Gas Modality Sodium 159 H (136-145) mEq/L Potassium 3.9 (3.5-4.5) mEq/L Chloride 127 H (98-109) mEq/L Carbon Dioxide 18 L (19-29) mEq/L BUN 114 H (8-26) mg/dL Creatinine 4.16 H (0.72-1.25) mg/dL Est GFR ( Amer) 17 L (> 60) Est GFR (Non-Af Amer) 14 L (> 60) BUN/Creatinine Ratio 27 H (6-26) Glucose 130 H (70-99) mg/dL Calculated Osmolality 366 H (280-300) Lactic Acid (0.5-2.2) mmol/L Calcium 9.4 (8.6-10.8) mg/dL Phosphorus 4.5 (2.3-4.7) mg/dL Magnesium 2.6 (1.6-2.6) mg/dL Total Bilirubin 0.9 (0.2-1.2) mg/dL Direct Bilirubin 0.5 (0.0-0.5) mg/dL Indirect Bilirubin 0.4 (0.0-1.2) mg/dL AST 98 H (5-34) Units/L ALT 53 (0-55) Units/L Alkaline Phosphatase 157 H (38-126) Units/L Troponin I (0-0.03) ng/mL Serum Total Protein 7.3 (6.0-8.3) g/dL Albumin 2.1 L (3.5-5.0) g/dL Globulin 5.2 H (2.4-3.5) g/dL Albumin/Globulin Ratio 0.4 L (1.1-2.2) Urine Color (Yellow) Urine Clarity (Clear) Urine pH (5.0-8.0) pH Units Ur Specific Commerce (1.010-1.025) Urine Protein (Neg-Trace) mg/dL Urine Glucose (UA) (Normal) mg/dL Urine Ketones (Negative) mg/dL Urine Blood (Negative) Urine Nitrite (Negative) Urine Bilirubin (Negative) Urine Urobilinogen (Normal) mg/dL Ur Leukocyte Esterase (Negative) Urine Microscopic RBC (0-3) per hpf Urine Microscopic WBC (0-3) per hpf Ur Squamous Epith Cells (None-Few) per lpf Amorphous Sediment (Few) Urine Bacteria (None-Few) per hpf Hyaline Casts (None-Few) per lpf Urine Yeast Ur Culture Indicated? (NO) 06/25/16 06/25/16 06/25/16 Range/Units 20:23 20:23 20:27 WBC (4.3-11.1) K/mcL RBC (4.19-5.50) M/mcL Hgb (12.9-16.9) g/dL Hct (37.5-50.1) % MCV (83.0-100.0) fL MCH (28.0-33.3) pg MCHC (31.6-35.5) g/dL RDW (11.5-14.5) % Plt Count (140-400) K/mcL MPV (9.4-12.4) fL Seg Neutrophils % % Lymphocytes % % Monocytes % % Neutrophils # (1.6-8.9) K/mcL Lymphocytes # (0.6-4.6) K/mcL Monocytes # (0.0-1.3) K/mcL Reactive Lymphocytes (Not Present) Platelet Estimate (Normal) Polychromasia (Not Present) PT (9.4-12.1) Seconds INR APTT (26.0-36.0) Seconds ABG pH 7.45 (7.32-7.45) pH Units ABG pCO2 26 L (35-45) mmHg ABG pO2 50 L* (85-104) mmHg ABG HCO3 18.1 L (21-27) mEQ/L ABG Total CO2 18.9 L (20-26) mEq/L ABG O2 Saturation 87 L (95-98) % ABG Base Excess -4.7 L (-2.0 to 3.0) mEq/L Liter Flow 50 L/MIN Blood Gas Modality BIPAP Sodium (136-145) mEq/L Potassium (3.5-4.5) mEq/L Chloride (98-109) mEq/L Carbon Dioxide (19-29) mEq/L BUN (8-26) mg/dL Creatinine (0.72-1.25) mg/dL Est GFR ( Amer) (> 60) Est GFR (Non-Af Amer) (> 60) BUN/Creatinine Ratio (6-26) Glucose (70-99) mg/dL Calculated Osmolality (280-300) Lactic Acid 1.5 (0.5-2.2) mmol/L Calcium (8.6-10.8) mg/dL Phosphorus (2.3-4.7) mg/dL Magnesium (1.6-2.6) mg/dL Total Bilirubin (0.2-1.2) mg/dL Direct Bilirubin (0.0-0.5) mg/dL Indirect Bilirubin (0.0-1.2) mg/dL AST (5-34) Units/L ALT (0-55) Units/L Alkaline Phosphatase (38-126) Units/L Troponin I 0.06 H* (0-0.03) ng/mL Serum Total Protein (6.0-8.3) g/dL Albumin (3.5-5.0) g/dL Globulin (2.4-3.5) g/dL Albumin/Globulin Ratio (1.1-2.2) Urine Color (Yellow) Urine Clarity (Clear) Urine pH (5.0-8.0) pH Units Ur Specific Commerce (1.010-1.025) Urine Protein (Neg-Trace) mg/dL Urine Glucose (UA) (Normal) mg/dL Urine Ketones (Negative) mg/dL Urine Blood (Negative) Urine Nitrite (Negative) Urine Bilirubin (Negative) Urine Urobilinogen (Normal) mg/dL Ur Leukocyte Esterase (Negative) Urine Microscopic RBC (0-3) per hpf Urine Microscopic WBC (0-3) per hpf Ur Squamous Epith Cells (None-Few) per lpf Amorphous Sediment (Few) Urine Bacteria (None-Few) per hpf Hyaline Casts (None-Few) per lpf Urine Yeast Ur Culture Indicated? (NO) 06/25/16 Range/Units 20:55 WBC (4.3-11.1) K/mcL RBC (4.19-5.50) M/mcL Hgb (12.9-16.9) g/dL Hct (37.5-50.1) % MCV (83.0-100.0) fL MCH (28.0-33.3) pg MCHC (31.6-35.5) g/dL RDW (11.5-14.5) % Plt Count (140-400) K/mcL MPV (9.4-12.4) fL Seg Neutrophils % % Lymphocytes % % Monocytes % % Neutrophils # (1.6-8.9) K/mcL Lymphocytes # (0.6-4.6) K/mcL Monocytes # (0.0-1.3) K/mcL Reactive Lymphocytes (Not Present) Platelet Estimate (Normal) Polychromasia (Not Present) PT (9.4-12.1) Seconds INR APTT (26.0-36.0) Seconds ABG pH (7.32-7.45) pH Units ABG pCO2 (35-45) mmHg ABG pO2 (85-104) mmHg ABG HCO3 (21-27) mEQ/L ABG Total CO2 (20-26) mEq/L ABG O2 Saturation (95-98) % ABG Base Excess (-2.0 to 3.0) mEq/L Liter Flow L/MIN Blood Gas Modality Sodium (136-145) mEq/L Potassium (3.5-4.5) mEq/L Chloride (98-109) mEq/L Carbon Dioxide (19-29) mEq/L BUN (8-26) mg/dL Creatinine (0.72-1.25) mg/dL Est GFR ( Amer) (> 60) Est GFR (Non-Af Amer) (> 60) BUN/Creatinine Ratio (6-26) Glucose (70-99) mg/dL Calculated Osmolality (280-300) Lactic Acid (0.5-2.2) mmol/L Calcium (8.6-10.8) mg/dL Phosphorus (2.3-4.7) mg/dL Magnesium (1.6-2.6) mg/dL Total Bilirubin (0.2-1.2) mg/dL Direct Bilirubin (0.0-0.5) mg/dL Indirect Bilirubin (0.0-1.2) mg/dL AST (5-34) Units/L ALT (0-55) Units/L Alkaline Phosphatase (38-126) Units/L Troponin I (0-0.03) ng/mL Serum Total Protein (6.0-8.3) g/dL Albumin (3.5-5.0) g/dL Globulin (2.4-3.5) g/dL Albumin/Globulin Ratio (1.1-2.2) Urine Color Yellow (Yellow) Urine Clarity Cloudy A (Clear) Urine pH 5.0 (5.0-8.0) pH Units Ur Specific Commerce 1.020 (1.010-1.025) Urine Protein 30 H (Neg-Trace) mg/dL Urine Glucose (UA) Normal (Normal) mg/dL Urine Ketones Negative (Negative) mg/dL Urine Blood Moderate H (Negative) Urine Nitrite Negative (Negative) Urine Bilirubin Negative (Negative) Urine Urobilinogen Normal (Normal) mg/dL Ur Leukocyte Esterase Negative (Negative) Urine Microscopic RBC 0-3 (0-3) per hpf Urine Microscopic WBC 3-5 H (0-3) per hpf Ur Squamous Epith Cells Many H (None-Few) per lpf Amorphous Sediment Few (Few) Urine Bacteria None Seen (None-Few) per hpf Hyaline Casts None Seen (None-Few) per lpf Urine Yeast Test Not Performed Ur Culture Indicated? NO (NO) - Radiology Data Radiology results reviewed: Yes I reviewed the patient's radiology results. Chest X-Ray 06/25/16 20:17 IMPRESSION: Persistent perihilar and basilar opacity. Considerations include pneumonia, aspiration and atelectasis. The appearance is similar to the prior exam. D/ / 06/25/2016 21:21:58 Sanjeev Montalvo MD / [facility] Interpreting Provider: Sanjeev Montalvo MD - EKG Data EKG #1 EKG attestation: Yes I reviewed and interpreted this EKG. EKG results narrative: EKG taken 06/25/2016 8 2025 hrs. shows sinus rhythm at a rate of [address] depression in V2 V3. Previous EKG taken 06/01/2016 shows sinus rhythm with no acute ST elevations or depressions in leads.
[2016-06-25] MEDS ORDERED: Ipratropium/Albuterol Neb 3 ML IH ONE (20:24)
[2016-06-25] MEDS ORDERED: 0.9 % Sodium Chloride 1,000 ML IVC ONE (20:26)
[2016-06-25 20:31] LABS: Red Cell Distribution Width 14.6 % (11.5-14.5)
[2016-06-25 20:33] LABS: Hemoglobin 11.4 g/dL (12.9-16.9); Mean Corpuscular HGB Conc 31.7 g/dL (31.6-35.5); Mean Corpuscular Hemoglobin 30.6 pg (28.0-33.3); Mean Corpuscular Volume 96.5 fL (83.0-100.0); Mean Platelet Volume 11.5 fL (9.4-12.4); Platelet Count 414 K/mcL (140-400); Red Blood Count 3.73 M/mcL (4.19-5.50)
[2016-06-25 20:38] LABS: ABG Base Excess -4.7 mEq/L (-2.0 to 3.0); ABG HCO3 18.1 mEQ/L (21-27); ABG Oxygen Saturation 87 % (95-98); ABG PCO2 26 mmHg (35-45); ABG PH 7.45 pH Units (7.32-7.45); ABG TCO2 18.9 mEq/L (20-26)
[2016-06-25 20:40] LABS: INR 1.7; Prothrombin Time 18.1 Seconds (9.4-12.1)
[2016-06-25 20:41] LABS: ABG PO2 50 mmHg (85-104); Blood Gas Liter Flow 50 L/MIN
[2016-06-25 20:43] LABS: Activated Partial Thrombo Time 30.8 Seconds (26.0-36.0)
[2016-06-25 20:46] LABS: Albumin 2.1 g/dL (3.5-5.0); Albumin/Globulin Ratio 0.4 (1.1-2.2); Bilirubin,Direct 0.5 mg/dL (0.0-0.5); Bilirubin,Indirect 0.4 mg/dL (0.0-1.2); Bilirubin,Total 0.9 mg/dL (0.2-1.2); Calcium 9.4 mg/dL (8.6-10.8); Globulin 5.2 g/dL (2.4-3.5); Magnesium 2.6 mg/dL (1.6-2.6); Phosphorous 4.5 mg/dL (2.3-4.7); Potassium 3.9 mEq/L (3.5-4.5); Total Protein 7.3 g/dL (6.0-8.3)
[2016-06-25 20:51] LABS: Lymphocytes # 1.7 K/mcL (0.6-4.6); Monocytes # 0.6 K/mcL (0.0-1.3); Neutrophils # 26.6 K/mcL (1.6-8.9); Polychromasia 1+ (Not Present); Reactive Lymphocytes Present (Not Present)
[2016-06-25 21:04] LABS: Bilirubin,Urine Negative (Negative); Blood,Urine Moderate (Negative); Clarity,Urine Cloudy (Clear); Color,Urine Yellow (Yellow); Glucose,Urine (UA) Normal (Normal); Ketones,Urine Negative (Negative); Leukocyte Esterase,Urine Negative (Negative); Nitrite,Urine Negative (Negative); Protein,Urine 30 mg/dL (Neg-Trace); Urobilinogen,Urine Normal (Normal)
[2016-06-25 21:06] LABS: Bacteria,Urine None Seen per hpf (None-Few); Squamous Epithelial Cell,Urine Many per lpf (None-Few)
[2016-06-25 21:19] LABS: Amorphous Sediment,Urine Few (Few)
[2016-06-25 21:20] LABS: Hyaline Casts,Urine None Seen per lpf (None-Few); RBC,Urine 0-3 per hpf (0-3)
[2016-06-25] MEDS: 0.9 % Sodium Chloride 1,000 ML IVC SCH (21:30)
[2016-06-25] MEDS ORDERED: Azithromycin 500 MG in D5% in Water 250 ML IVPB STA (21:43)
--- NOTE | 2016-06-25 21:43 | Emergency Department Note ---
START Narrative - START START: I, Fletcher Tomlinson, examined this patient and my medical decision-making was reviewed with the INSTRUCTIONAL SERVICES SPECIALIST/PA/Advanced Practice Nurse/Resident Physician. I agree with the documented findings, disposition and treatment plan as described except to the extent set forth below. 75-year-old male presents with altered mental status and abnormal labs from the long-term. Patient was seen 1 week ago for possible injury to the right hip. I saw the patient at that time and he had difficulty with his speech however the long-term stated he was at his baseline. On recent laboratory evaluations at the long-term the patient now has renal failure and is less responsive. On initial evaluation the patient is unable to provide history regarding his case and presentation. Patient was hypotensive with a systolic blood pressure in the 80s. He was given normal saline with improvement of his blood pressure to a systolic 95. Patient had difficulty breathing on initial evaluation and had rhonchorous breath sounds in the right lower base. Chest x- ray shows a right lower lobe pneumonia. Patient has a significant leukocytosis. Patient was febrile in the axillary area initially with a temp of 100.8 however on recheck with a rectal temp the patient had a blood pressure 100.1. Patient was started on a BiPAP for his respiratory distress. Although the patient is mildly altered, he is able to grab your hand during the evaluation as I believe he is a still a candidate for BiPAP use. Patient started on vancomycin and Zosyn and azithromycin in the emergency department for treatment of likely sepsis secondary to pneumonia.
[2016-06-26] MEDS ORDERED: 0.9 % Sodium Chloride 1,000 ML IVC ONE ×3 (00:39→03:13)
[2016-06-26] MEDS ORDERED: D5% in Water 1,000 ML IVC SCH (00:45)
[2016-06-26 01:17] LABS: ABG Base Excess -7.7 mEq/L (-2.0 to 3.0); ABG HCO3 15.3 mEQ/L (21-27); ABG Oxygen Saturation 94 % (95-98); ABG PCO2 23 mmHg (35-45); ABG PH 7.43 pH Units (7.32-7.45); ABG PO2 70 mmHg (85-104)
[2016-06-26 01:18] LABS: Blood Gas FiO2 50 %
[2016-06-26] MEDS ORDERED: *HR* Rocuronium Bromide 50 MG/5 ML VIAL IVP ONE (01:40)
[2016-06-26] MEDS ORDERED: *HR* Etomidate 20 MG/10 ML AMPUL IVP ONE ×2 (01:40→07:37)
--- NOTE | 2016-06-26 02:17 | Emergency Department Note ---
START Narrative - START START: I examined this patient and my medical decision-making was reviewed with the CEMENT FINISHER HELPER/PA/Advanced Practice Nurse/Resident Physician. I agree with the documented findings, disposition and treatment plan as described except to the extent set forth below. Patient was subsequently intubated due to increasing respiratory failure and respiratory fatigue. Intubation was observed by myself with the resident. Patient tolerated procedure well with no complications.
--- NOTE | 2016-06-26 02:24 | Emergency Department Note ---
Disposition Clinical Impression: Hypernatremia, Hyperchloremia Sepsis Qualifiers: Sepsis type: sepsis due to unspecified organism Qualified Code(s): A41.9 - Sepsis, unspecified organism Pneumonia Qualifiers: Pneumonia type: due to unspecified organism Laterality: right Lung location: lower lobe of lung Qualified Code(s): J18.1 - Lobar pneumonia, unspecified organism Acute respiratory failure Qualifiers: Respiratory failure complication: hypoxia Qualified Code(s): J96.01 - Acute respiratory failure with hypoxia Disposition: Admitted As Inpatient Condition: Serious General Adult HPI - General Chief complaint: ED General Medical Stated complaint: unresponsive Time Seen by Provider: 06/25/16 20:16 Source: EMS Limitations: altered mental status - History of Present Illness Pain Scale: 0 - Related Data Home Medications Medication Instructions Recorded Confirmed Aspirin [Lo-Dose Aspirin EC] 81 mg PO DAILY 06/02/16 06/25/16 Lisinopril [Zestril] 10 mg PO DAILY 06/02/16 06/25/16 Acetaminophen [Tylenol] 325 mg PO Q8H PRN 06/15/16 06/25/16 Amino Acids/Protein Hydrolys 30 ml PO QAM 06/15/16 06/25/16 [Pro-Stat Awc Liquid Packet] Atorvastatin Calcium [Lipitor] 20 mg PO HS 06/15/16 06/25/16 Docusate [Colace] 200 mg PO DAILY 06/15/16 06/25/16 Multivitamin [Multi-Day Vitamins] 1 each PO DAILY 06/15/16 06/25/16 Triamcinolone Acet 0.1% CRM 1 appl TP BID 06/15/16 06/25/16 [Kenalog] Haloperidol Lactate [Haldol] 1 mg IM BID PRN 06/25/16 06/25/16 Thiamine Mononitrate [Vitamin B-1] 100 mg PO DAILY 06/25/16 06/25/16 Previous Rx's Medication Instructions Recorded Oxycodone HCl [Oxaydo] 5 - 10 mg PO Q4H PRN #10 tablet.orl 06/17/16 Allergies Allergy/AdvReac Type Severity Reaction Status Date / Time No Known Allergies Allergy Verified 06/01/16 19:41 Past Medical History - Past Medical History Medical history: Reports: arthritis, COPD, hyperlipidemia, hypertension Psychiatric history: Reports: no psych history - Social History Smoking Status: Unknown if ever smoked Smokeless Tobacco Status: No Alcohol use: Reports: unknown Drug use: Reports: unknown Physical Exam - General Limitations: altered mental status General appearance: alert Course Course Narrative: Patient care was signed out from Dr. Scanlon in the Dr. Tomlinson, the patient subsequently continued to be tachypneic, decreased mental state, unclear what his baseline was, given hypoxemia on blood gas, and hypocapnia, he pamela a second ABG, blood gases not improve on second evaluation, prior to sending the patient to , the hospitalist Mary Alice and Dr. Cedeño, Dr Felton did evaluate the patient, and the decision was made to intubate the patient, see intubation note , patient was placed on a Diprivan drip, in stable condition but critical upon admission to the ICU Vital Signs Temperature 98.7 F 06/25/16 20:08 Pulse Rate 84 06/25/16 20:08 Respiratory Rate 24 06/25/16 20:08 Blood Pressure 85/40 06/25/16 20:08 O2 Sat by Pulse Oximetry 88 06/25/16 20:08 Temperature 100.1 F H 06/25/16 20:45 Pulse Rate 92 06/26/16 00:27 Respiratory Rate 39 06/26/16 00:27 Blood Pressure 114/45 06/26/16 00:27 O2 Sat by Pulse Oximetry 97 06/26/16 00:27 Oxygen Delivery Oxygen Delivery Bipap Procedures - Intubation Time out performed: Yes sedative: Etomidate Mg Given: 20 paralytic: Rocuronium Mg Given: 60 Laryngoscope: Antonia ET Tube Size: 8 ET Tube Uncuffed: No Tube Secured Depth (cm): 23 Tube Secured Location: lips Tube Placement Confirmation: visualized tube passing through cords, equal breath sounds bilaterally, no breath sounds over epigastrium, confirmation by capnometry Patient Tolerated Procedure: well Intubation Complications: none Additional Comments: Dr Felton, Medical student, Dr Cedeño Attending Medical Decision Making - [facility] Narrative Medical decision making narrative: 75yo male with acute respiratory failure, sepsis and acute resp failure, admitted to medicine service, to the ICU, patient was intubated please see and Dr. Tomlinson's notes for HPI history and physical - Medical Records Medical records reviewed: Yes I reviewed the patient's medical records. - Lab Data Lab results reviewed: Yes I reviewed the patient's lab results. Result diagrams: 06/25/16 20:23 06/25/16 20:23 Lab Results 06/25/16 06/25/16 06/25/16 Range/Units 20:23 20:23 20:23 WBC 28.9 H (4.3-11.1) K/mcL RBC 3.73 L (4.19-5.50) M/mcL Hgb 11.4 L (12.9-16.9) g/dL Hct 36.0 L (37.5-50.1) % MCV 96.5 (83.0-100.0) fL MCH 30.6 (28.0-33.3) pg MCHC 31.7 (31.6-35.5) g/dL RDW 14.6 H (11.5-14.5) % Plt Count 414 H (140-400) K/mcL MPV 11.5 (9.4-12.4) fL Seg Neutrophils % 92.0 % Lymphocytes % 6.0 % Monocytes % 2.0 % Neutrophils # 26.6 H (1.6-8.9) K/mcL Lymphocytes # 1.7 (0.6-4.6) K/mcL Monocytes # 0.6 (0.0-1.3) K/mcL Reactive Lymphocytes Present A (Not Present) Platelet Estimate Slight increase H (Normal) Polychromasia 1+ A (Not Present) PT 18.1 H (9.4-12.1) Seconds INR 1.7 APTT 30.8 (26.0-36.0) Seconds ABG pH (7.32-7.45) pH Units ABG pCO2 (35-45) mmHg ABG pO2 (85-104) mmHg ABG HCO3 (21-27) mEQ/L ABG Total CO2 (20-26) mEq/L ABG O2 Saturation (95-98) % ABG Base Excess (-2.0 to 3.0) mEq/L Liter Flow L/MIN Blood Gas Modality Sodium 159 H (136-145) mEq/L Potassium 3.9 (3.5-4.5) mEq/L Chloride 127 H (98-109) mEq/L Carbon Dioxide 18 L (19-29) mEq/L BUN 114 H (8-26) mg/dL Creatinine 4.16 H (0.72-1.25) mg/dL Est GFR ( Amer) 17 L (> 60) Est GFR (Non-Af Amer) 14 L (> 60) BUN/Creatinine Ratio 27 H (6-26) Glucose 130 H (70-99) mg/dL Calculated Osmolality 366 H (280-300) Lactic Acid (0.5-2.2) mmol/L Calcium 9.4 (8.6-10.8) mg/dL Phosphorus 4.5 (2.3-4.7) mg/dL Magnesium 2.6 (1.6-2.6) mg/dL Total Bilirubin 0.9 (0.2-1.2) mg/dL Direct Bilirubin 0.5 (0.0-0.5) mg/dL Indirect Bilirubin 0.4 (0.0-1.2) mg/dL AST 98 H (5-34) Units/L ALT 53 (0-55) Units/L Alkaline Phosphatase 157 H (38-126) Units/L Troponin I (0-0.03) ng/mL Serum Total Protein 7.3 (6.0-8.3) g/dL Albumin 2.1 L (3.5-5.0) g/dL Globulin 5.2 H (2.4-3.5) g/dL Albumin/Globulin Ratio 0.4 L (1.1-2.2) Urine Color (Yellow) Urine Clarity (Clear) Urine pH (5.0-8.0) pH Units Ur Specific [place] (1.010-1.025) Urine Protein (Neg-Trace) mg/dL Urine Glucose (UA) (Normal) mg/dL Urine Ketones (Negative) mg/dL Urine Blood (Negative) Urine Nitrite (Negative) Urine Bilirubin (Negative) Urine Urobilinogen (Normal) mg/dL Ur Leukocyte Esterase (Negative) Urine Microscopic RBC (0-3) per hpf Urine Microscopic WBC (0-3) per hpf Ur Squamous Epith Cells (None-Few) per lpf Amorphous Sediment (Few) Urine Bacteria (None-Few) per hpf Hyaline Casts (None-Few) per lpf Urine Yeast Ur Culture Indicated? (NO) 06/25/16 06/25/16 06/25/16 Range/Units 20:23 20:23 20:27 WBC (4.3-11.1) K/mcL RBC (4.19-5.50) M/mcL Hgb (12.9-16.9) g/dL Hct (37.5-50.1) % MCV (83.0-100.0) fL MCH (28.0-33.3) pg MCHC (31.6-35.5) g/dL RDW (11.5-14.5) % Plt Count (140-400) K/mcL MPV (9.4-12.4) fL Seg Neutrophils % % Lymphocytes % % Monocytes % % Neutrophils # (1.6-8.9) K/mcL Lymphocytes # (0.6-4.6) K/mcL Monocytes # (0.0-1.3) K/mcL Reactive Lymphocytes (Not Present) Platelet Estimate (Normal) Polychromasia (Not Present) PT (9.4-12.1) Seconds INR APTT (26.0-36.0) Seconds ABG pH 7.45 (7.32-7.45) pH Units ABG pCO2 26 L (35-45) mmHg ABG pO2 50 L* (85-104) mmHg ABG HCO3 18.1 L (21-27) mEQ/L ABG Total CO2 18.9 L (20-26) mEq/L ABG O2 Saturation 87 L (95-98) % ABG Base Excess -4.7 L (-2.0 to 3.0) mEq/L Liter Flow 50 L/MIN Blood Gas Modality BIPAP Sodium (136-145) mEq/L Potassium (3.5-4.5) mEq/L Chloride (98-109) mEq/L Carbon Dioxide (19-29) mEq/L BUN (8-26) mg/dL Creatinine (0.72-1.25) mg/dL Est GFR ( Amer) (> 60) Est GFR (Non-Af Amer) (> 60) BUN/Creatinine Ratio (6-26) Glucose (70-99) mg/dL Calculated Osmolality (280-300) Lactic Acid 1.5 (0.5-2.2) mmol/L Calcium (8.6-10.8) mg/dL Phosphorus (2.3-4.7) mg/dL Magnesium (1.6-2.6) mg/dL Total Bilirubin (0.2-1.2) mg/dL Direct Bilirubin (0.0-0.5) mg/dL Indirect Bilirubin (0.0-1.2) mg/dL AST (5-34) Units/L ALT (0-55) Units/L Alkaline Phosphatase (38-126) Units/L Troponin I 0.06 H* (0-0.03) ng/mL Serum Total Protein (6.0-8.3) g/dL Albumin (3.5-5.0) g/dL Globulin (2.4-3.5) g/dL Albumin/Globulin Ratio (1.1-2.2) Urine Color (Yellow) Urine Clarity (Clear) Urine pH (5.0-8.0) pH Units Ur Specific [place] (1.010-1.025) Urine Protein (Neg-Trace) mg/dL Urine Glucose (UA) (Normal) mg/dL Urine Ketones (Negative) mg/dL Urine Blood (Negative) Urine Nitrite (Negative) Urine Bilirubin (Negative) Urine Urobilinogen (Normal) mg/dL Ur Leukocyte Esterase (Negative) Urine Microscopic RBC (0-3) per hpf Urine Microscopic WBC (0-3) per hpf Ur Squamous Epith Cells (None-Few) per lpf Amorphous Sediment (Few) Urine Bacteria (None-Few) per hpf Hyaline Casts (None-Few) per lpf Urine Yeast Ur Culture Indicated? (NO) 06/25/16 Range/Units 20:55 WBC (4.3-11.1) K/mcL RBC (4.19-5.50) M/mcL Hgb (12.9-16.9) g/dL Hct (37.5-50.1) % MCV (83.0-100.0) fL MCH (28.0-33.3) pg MCHC (31.6-35.5) g/dL RDW (11.5-14.5) % Plt Count (140-400) K/mcL MPV (9.4-12.4) fL Seg Neutrophils % % Lymphocytes % % Monocytes % % Neutrophils # (1.6-8.9) K/mcL Lymphocytes # (0.6-4.6) K/mcL Monocytes # (0.0-1.3) K/mcL Reactive Lymphocytes (Not Present) Platelet Estimate (Normal) Polychromasia (Not Present) PT (9.4-12.1) Seconds INR APTT (26.0-36.0) Seconds ABG pH (7.32-7.45) pH Units ABG pCO2 (35-45) mmHg ABG pO2 (85-104) mmHg ABG HCO3 (21-27) mEQ/L ABG Total CO2 (20-26) mEq/L ABG O2 Saturation (95-98) % ABG Base Excess (-2.0 to 3.0) mEq/L Liter Flow L/MIN Blood Gas Modality Sodium (136-145) mEq/L Potassium (3.5-4.5) mEq/L Chloride (98-109) mEq/L Carbon Dioxide (19-29) mEq/L BUN (8-26) mg/dL Creatinine (0.72-1.25) mg/dL Est GFR ( Amer) (> 60) Est GFR (Non-Af Amer) (> 60) BUN/Creatinine Ratio (6-26) Glucose (70-99) mg/dL Calculated Osmolality (280-300) Lactic Acid (0.5-2.2) mmol/L Calcium (8.6-10.8) mg/dL Phosphorus (2.3-4.7) mg/dL Magnesium (1.6-2.6) mg/dL Total Bilirubin (0.2-1.2) mg/dL Direct Bilirubin (0.0-0.5) mg/dL Indirect Bilirubin (0.0-1.2) mg/dL AST (5-34) Units/L ALT (0-55) Units/L Alkaline Phosphatase (38-126) Units/L Troponin I (0-0.03) ng/mL Serum Total Protein (6.0-8.3) g/dL Albumin (3.5-5.0) g/dL Globulin (2.4-3.5) g/dL Albumin/Globulin Ratio (1.1-2.2) Urine Color Yellow (Yellow) Urine Clarity Cloudy A (Clear) Urine pH 5.0 (5.0-8.0) pH Units Ur Specific [place] 1.020 (1.010-1.025) Urine Protein 30 H (Neg-Trace) mg/dL Urine Glucose (UA) Normal (Normal) mg/dL Urine Ketones Negative (Negative) mg/dL Urine Blood Moderate H (Negative) Urine Nitrite Negative (Negative) Urine Bilirubin Negative (Negative) Urine Urobilinogen Normal (Normal) mg/dL Ur Leukocyte Esterase Negative (Negative) Urine Microscopic RBC 0-3 (0-3) per hpf Urine Microscopic WBC 3-5 H (0-3) per hpf Ur Squamous Epith Cells Many H (None-Few) per lpf Amorphous Sediment Few (Few) Urine Bacteria None Seen (None-Few) per hpf Hyaline Casts None Seen (None-Few) per lpf Urine Yeast Test Not Performed Ur Culture Indicated? NO (NO) - Radiology Data Radiology results reviewed: Yes I reviewed the patient's radiology results. Chest X-Ray 06/25/16 20:17 IMPRESSION: Persistent perihilar and basilar opacity. Considerations include pneumonia, aspiration and atelectasis. The appearance is similar to the prior exam. D/ / 06/25/2016 21:21:58 Sanjeev Montalvo MD / keyona Interpreting Provider: Sanjeev Montalvo MD
[2016-06-26] MEDS: 0.9 % Sodium Chloride 1,000 ML IVC SCH ×2 (03:11→16:37)
--- NOTE | 2016-06-26 03:13 | Internal Med History&Physical ---
<Avery Wilson - Last Filed: 06/26/16 04:37> Date of Encounter: 06/26/16 Time of Encounter: 03:00 Assessment and Plan (1) Acute respiratory failure Current visit: Yes Status: Acute Patient presented hyperventilating, alkalotic, hypoxic. After initial trial BiPAP patient was intubated and remains so currently. Acute respiratory failure with hypoxia likely due to exacerbation COPD from hospital-acquired pneumonia. Patient currently intubated and sedated on propofol We will continue to monitor the patient's ventilatory status given current fluid repletion in concern for development of pleural effusion Qualifiers: Respiratory failure complication: hypoxia Qualified Code(s): J96.01 - Acute respiratory failure with hypoxia (2) Hypernatremia Current visit: Yes Status: Acute Patient found to have serum sodium of 159, elevated serum osmolality, acute kidney injury with BUN to creatinine ratio suggests a prerenal causes. This points to dehydration from decreased by mouth intake being primarily responsible for patient increased serum sodium. But given recent diagnosis of lung nodule that might be a paraneoplastic syndrome complicating (though unknown at this time). We will treat hypernatremia as dehydration currently. Patient water deficit 5 L Patient received 1 L bolus normal saline, 1 L bolus D5W, patient is continued on D5W at 100 ml/hour We will recheck patient's sodium every 6 hours We will obtain a limited echocardiogram to evaluate for patient ejection fraction Will consider changing D5W to 0.45% NS the patient continues to have hyperglycemia (3) Acute metabolic encephalopathy Current visit: No Status: Acute acute metabolic encephalopathy likely due to hypernatremia with serum sodium of 159 as well as current sepsis from hospital-acquired pneumonia. Patient remains sedated on propofol We will treat hypernatremia and dehydration as above For treatment of hospital-acquired pneumonia see section on sepsis (4) Sepsis Current visit: Yes Status: Acute Patient presents to [place] appearing septic, the patient dehydration could be contributory. He appears to have some pneumonia on chest x-ray, with expectation of increasing physical radiographic findings with fluid repletion. Patient required intubation due to hypoxia and work of breathing with hyperventilation. We will obtain repeat chest x-ray in the morning after some fluid repletion Patient received 2 L bolus of fluids and is continuing on 100 mL an hour fluid repletion Patient started on vancomycin, Zosyn, and Levaquin due to concern of hospital- acquired pneumonia Patient will have scheduled DuoNeb breathing treatments We will start 40 mg Solu-Medrol every 6 hours for concern of AE COPD, though no wheezing auscultated on exam Tylenol suppositories for fever Will obtain strep pneumo and legionella urinary antigens Will obtain viral respiratory panel We will obtain culture and Gram stain of sputum and blood Recheck ABG following patient intubation Qualifiers: Sepsis type: sepsis due to unspecified organism Qualified Code(s): A41.9 - Sepsis, unspecified organism (5) Acute exacerbation of chronic obstructive pulmonary disease Current visit: Yes Status: Acute Patient acute exacerbation of COPD due to HAP. Plan as above (6) Pneumonia Current visit: Yes Status: Acute Patient's chest x-ray certainly suggestive of pneumonia, and expect greater physical and radiographic findings with greater fluid repletion. Given how recently patient was in the hospital, will treat current pneumonia as hospital- acquired pneumonia. Plan as above Qualifiers: Pneumonia type: due to unspecified organism Laterality: right Lung location: lower lobe of lung Qualified Code(s): J18.1 - Lobar pneumonia, unspecified organism (7) Acute kidney injury Current visit: No Status: Acute Patient has acute kidney injury with BUN of 114 and serum creatinine of 4.16 at discharge one week ago patient's creatinine was 1.40. His acute kidney injury seen now likely represent dehydration from decreased by mouth input over the last couple days, with BUN to creatinine ratio over 20 is certainly suggestive of prerenal causes. Given patient dry mucous membranes this seems likely the reason. Repeat chemistry performed after initial fluid repletion shows improving kidney function. We will continue to evaluate kidney function given a continued fluid repletion. Continue to monitor kidney function Continue fluid repletion with D5W (8) Hyperglycemia Current visit: Yes Status: Acute Patient developed hyperglycemia following continued administration of D5W. No known prior history of diabetes. Will expect blood sugar to go up further with administration of steroids for acute exacerbation. 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 Center area of wound covered in eschar. We will consult wound care for recommendations about proper care of heel ulcer Qualifiers: Pressure ulcer location: heel Pressure ulcer stage: unstageable Laterality: right Qualified Code(s): L89.610 - Pressure ulcer of right heel, unstageable (12) Status post right hip replacement Current visit: No Status: Acute Internal Medicine - H&P: HPI Chief complaint: Unresponsive and abnormal labs Admitted From: Long-term Nursing Facility Plans for Post Hospital Care: Transfer [facility] History of present illness: Mr. Ellis is a 75 year old male with prior medical history is significant for arthritis, COPD, recent hip fracture (status post hip surgery) who is brought to [place] via squad after being found unresponsive and with abnormal labs. Patient was intubated and sedated at the time of evaluation the history was obtained through chart review. When patient presented to [place] he appeared to be in respiratory distress, with labored, tachypneic breathing. He had been placed on BiPAP was continued to have respiratory distress with tachypnea/ hyperventilation up to 44. PCO2 was 26 on ABG and pH of 7.45. Patient was encephalopathic with a PaO2 of 50. Mild improvement was seen with BiPAP, though patient continued hyperventilation bringing PCO2 done 23. At this point patient underwent intubation. He was found have several laboratory abnormalities, including: a serum sodium of 159, elevated urine chloride, and acute kidney injury with ratio BUN and creatinine suggesting dehydration, calculated [place] he was 366, and he had mild troponin elevation. He has leukocytosis of 28.9 with decreased hemoglobin at 11.4 and elevated platelets of 414. Patient had recently been [place] and discharged on 06/17/16 after having been treated for altered mental status, leukocytosis, abnormal LFTs, and acute kidney injury. This came after undergoing right hip surgery following a fracture earlier in May. During the stay he was found to have a mass in the middle lobe of his right lung is suspicious for malignancy, but had planned to have worked up as outpatient. Past Med Surg Social Fam HX - Past Medical History Source: old records reviewed Medical history: arthritis, COPD, hyperlipidemia, hypertension Psychiatric history: no psych history - Social History Smoking Status: Unknown if ever smoked Smokeless Tobacco Status: No Alcohol use: unknown Drug use: unknown Internal Medicine - H&P: Meds Aspirin [Lo-Dose Aspirin EC] 81 mg PO DAILY 06/02/16 [History] Lisinopril [Zestril] 10 mg PO DAILY 06/02/16 [History] Acetaminophen [Tylenol] 325 mg PO Q8H PRN 06/15/16 [History] Amino Acids/Protein Hydrolys [Pro-Stat Awc Liquid Packet] 30 ml PO QAM 06/15/16 [History] Atorvastatin Calcium [Lipitor] 20 mg PO HS 06/15/16 [History] Docusate [Colace] 200 mg PO DAILY 06/15/16 [History] Multivitamin [Multi-Day Vitamins] 1 each PO DAILY 06/15/16 [History] Triamcinolone Acet 0.1% CRM [Kenalog] 1 appl TP BID 06/15/16 [History] Oxycodone HCl [Oxaydo] 5 - 10 mg PO Q4H PRN #10 tablet.orl 06/17/16 [Rx] Haloperidol Lactate [Haldol] 1 mg IM BID PRN 06/25/16 [History] Thiamine Mononitrate [Vitamin B-1] 100 mg PO DAILY 06/25/16 [History] Allergies No Known Allergies Allergy (Verified 06/01/16 19:41) ROS unobtainable: due to endotracheal tube, due to mental status - Constitutional Vitals: Temp Pulse Resp BP Pulse Ox 99.2 F 84 16 120/44 100 06/26/16 03:00 06/26/16 03:00 06/26/16 03:00 06/26/16 03:00 06/26/16 03:00 Exam: General: Intubated and sedated Head: Normocephalic, atraumatic Eye: Conjunctiva pink, sclera anicteric, PERRL Neck: Supple, trachea midline, mucosa dry, surgical scar on right side of neck ( likely prior CEA) Respiratory: No accessory muscle usage, clear to auscultation bilaterally, no wheezes/rhonchi/rales appreciated on auscultation, mechanically ventilated Cardiovascular: Regular rate and rhythm, S1 and S2 present, no murmurs/rubs/ gallops/clicks appreciated GI/abdominal: Nondistended, nontender, soft, normal bowel sounds, no peritoneal signs Extremities: No calf tenderness, noncyanotic, no pedal edema appreciated, warm, lower extremity pulses palpable and symmetrical, long unstageable pressure ulcer on bottom of right heel (2 cm x 7 cm) Neurological: Sedated Skin: Dry, intact, normal color, multiple tattoos over entire body Internal Med - H&P Results - Labs CBC & Chem 7: 06/25/16 20:23 06/25/16 20:23 - ABG Interpretation ABG results: 06/26/16 01:10 ABG pH 7.43 ABG pCO2 23 L ABG pO2 70 L ABG HCO3 15.3 L ABG Total CO2 16.0 L ABG O2 Saturation 94 L ABG Base Excess -7.7 L - Impressions ITS Impressions Chest X-Ray 06/26/16 02:27 IMPRESSION: Interval placement of endotracheal and nasogastric tubes in satisfactory position. Unchanged bilateral airspace disease, likely multifocal pneumonia and possibly atelectasis. D/ / Srikanth Nolasco MD / Srikanth Nolasco MD Interpreting Provider: Srikanth Nolasco MD <Refugio Wheat R - Last Filed: 06/26/16 06:28> Date of Encounter: 06/26/16 Internal Medicine - H&P: HPI History of present illness: Mr. Ellis is a 75 year old male All Systems PM: A 10-system review of systems was performed and is negative for pertinent findings except as documented above in the HPI. - Constitutional Vitals: Temp Pulse Resp BP Pulse Ox 98.2 F 77 25 101/46 96 06/26/16 04:46 06/26/16 06:00 06/26/16 06:00 06/26/16 05:00 06/26/16 06:00 Internal Med - H&P Results - Labs CBC & Chem 7: 06/26/16 04:35 06/26/16 04:35 Labs: Short CBC 06/26/16 Range/Units 04:35 WBC 28.4 H (4.3-11.1) K/mcL Hgb 10.8 L (12.9-16.9) g/dL Hct 35.5 L (37.5-50.1) % Plt Count 340 (140-400) K/mcL Neutrophils # 27.6 H (1.6-8.9) K/mcL BMP 06/26/16 04:35 Sodium 153 H Potassium 3.7 Chloride 127 H Carbon Dioxide 14 L BUN 101 H Creatinine 3.62 H Glucose 327 H Calcium 8.1 L Cardiac Enzymes 06/26/16 Range/Units 04:35 Troponin I 0.04 H* (0-0.03) ng/mL Liver Function 06/26/16 Range/Units 04:35 Total Bilirubin 0.9 (0.2-1.2) mg/dL AST 113 H (5-34) Units/L ALT 50 (0-55) Units/L Alkaline Phosphatase 136 H (38-126) Units/L Albumin 1.6 L D (3.5-5.0) g/dL - ABG Interpretation ABG results: 06/26/16 06/26/16 01:10 05:12 ABG pH 7.43 7.35 ABG pCO2 23 L 28 L ABG pO2 70 L 74 L ABG HCO3 15.3 L 15.5 L ABG Total CO2 16.0 L 16.4 L ABG O2 Saturation 94 L 94 L ABG Base Excess -7.7 L -9.1 L - Impressions ITS Impressions Chest X-Ray 06/26/16 02:27 IMPRESSION: Interval placement of endotracheal and nasogastric tubes in satisfactory position. Unchanged bilateral airspace disease, likely multifocal pneumonia and possibly atelectasis. D/ / Srikanth Nolasco MD / Srikanth Nolasco MD Interpreting Provider: Srikanth Nolasco MD - Attending Attestation I examined this patient and my medical decision-making was reviewed with the PLASTIC TECHNICIAN/PA/Advanced Practice Nurse/Resident Physician. I agree with the documented findings, disposition and treatment plan as described except to the extent set forth below. Respiratory failure Mechanically ventilated, sepsis with end organ damage as noted by AMS, elevated lactic acid and acute kidney injury likely due to pneumonia. Hypernatremia due to poor oral intake. Continue with fluid therapy, broad spectrum antibiotics, ICU care. D/W Dr. Wilson and agree with his data gathering in the HPI, physical examination findings, assessment and plan.
[2016-06-26] MEDS ORDERED: Naloxone 0.4 MG/ML INJ IVP PRN (03:17)
[2016-06-26] MEDS ORDERED: Acetaminophen 650 MG RECTAL SUPP RC PRN (03:17)
[2016-06-26] MEDS ORDERED: Ondansetron 4 MG/2 ML VIAL IVP PRN (03:17)
[2016-06-26] MEDS ORDERED: Sennosides 8.6 MG TABLET PO PRN (03:17)
[2016-06-26] MEDS ORDERED: Ipratropium/Albuterol Neb 3 ML IH PRN (03:32)
[2016-06-26] MEDS ORDERED: Haloperidol Lactate 5 MG/ML VIAL IM PRN (03:33)
[2016-06-26] MEDS ORDERED: Vancomycin 1,000 MG in D5% in Water 250 ML IVPB SCH (04:00)
[2016-06-26] MEDS: Ipratropium/Albuterol Neb 3 ML IH SCH ×6 (04:05→23:58)
[2016-06-26] MEDS: Levofloxacin 750 MG/150 ML 750 MG/150 ML BAG IVPB SCH (04:42)
[2016-06-26 04:59] LABS: INR 1.7; Prothrombin Time 18.8 Seconds (9.4-12.1)
[2016-06-26 05:02] LABS: Hematocrit 35.5 % (37.5-50.1); Hemoglobin 10.8 g/dL (12.9-16.9); Mean Corpuscular HGB Conc 30.4 g/dL (31.6-35.5); Mean Corpuscular Hemoglobin 29.7 pg (28.0-33.3); Mean Corpuscular Volume 97.5 fL (83.0-100.0); Platelet Count 340 K/mcL (140-400); Red Blood Count 3.64 M/mcL (4.19-5.50); Red Cell Distribution Width 14.6 % (11.5-14.5)
[2016-06-26 05:07] LABS: Albumin/Globulin Ratio 0.4 (1.1-2.2); Bilirubin,Total 0.9 mg/dL (0.2-1.2); Calcium 8.1 mg/dL (8.6-10.8); Globulin 4.3 g/dL (2.4-3.5); Magnesium 2.3 mg/dL (1.6-2.6); Potassium 3.7 mEq/L (3.5-4.5); Total Protein 5.9 g/dL (6.0-8.3)
[2016-06-26 05:10] LABS: Albumin 1.6 g/dL (3.5-5.0)
[2016-06-26] MEDS: *HR* Heparin 5,000 UNIT/ML VIAL SQ SCH ×3 (05:18→20:46)
[2016-06-26] MEDS: MethylPREDNISolone 40 MG/ML VIAL IVP SCH ×2 (05:18→12:09)
[2016-06-26 05:24] LABS: Large Platelets Present (Not Present); Lymphocytes # 0.6 K/mcL (0.6-4.6); Monocytes # 0.3 K/mcL (0.0-1.3); Neutrophils # 27.6 K/mcL (1.6-8.9); Platelet Estimate Normal (Normal)
[2016-06-26 05:25] LABS: Reactive Lymphocytes Present (Not Present)
[2016-06-26] MEDS ORDERED: *HR* Dextrose 50 % in Water (Syg) 50 ML SYRINGE IVP PRN (05:34)
[2016-06-26] MEDS ORDERED: D5% in Water 1,000 ML IVC PRN (05:34)
[2016-06-26] MEDS ORDERED: Dextrose Gel 15 GM PO PRN ×2 (05:34)
[2016-06-26 05:41] LABS: ABG Base Excess -9.1 mEq/L (-2.0 to 3.0); ABG HCO3 15.5 mEQ/L (21-27); ABG Oxygen Saturation 94 % (95-98); ABG PCO2 28 mmHg (35-45); ABG PH 7.35 pH Units (7.32-7.45); ABG PO2 74 mmHg (85-104); ABG TCO2 16.4 mEq/L (20-26)
[2016-06-26 05:42] LABS: Blood Gas FiO2 50 %
[2016-06-26] MEDS: Insulin LISPRO 300 UNITS/3 ML VIAL SQ SCH ×3 (06:07→18:18)
[2016-06-26] MEDS ORDERED: *HR* Rocuronium Bromide 100 MG/10 ML VIAL IVC ONE (07:37)
[2016-06-26] MEDS ORDERED: Aminoglycoside Consult 1 EACH MC ONE (08:26)
[2016-06-26] MEDS: FentaNYL (PF) 1,000 MCG in 0.9 % Sodium Chloride 80 ML IVC SCH (08:34)
[2016-06-26] MEDS: Piperacillin/Tazobactam 3.375 GM in D5% in Water (Mini-Bag+) 100 ML IVPB SCH ×2 (08:35→20:55)
[2016-06-26] MEDS: Pantoprazole 40 MG VIAL IVPB SCH (08:35)
[2016-06-26] MEDS: Aspirin Enteric Coated 81 MG Tablet PO SCH (08:35)
[2016-06-26] MEDS: Ascorbic Acid 500 MG TABLET PO SCH (08:36)
[2016-06-26] MEDS: Zinc Sulfate 220 MG CAPSULE PO SCH (08:36)
--- NOTE | 2016-06-26 09:07 | Pulmonology Consult Note ---
<Melonie Merida - Last Filed: 06/26/16 15:46> Date of Encounter: 06/26/16 Time of Encounter: 07:25 Assessment and Plan (1) Sepsis Current Visit: Yes Status: Acute Pt tachypnic, with an elevated WBC, and febrile. Pt had an altered mental status. Suspected source of lungs. Chest x-ray showed possible pneumonia. Pt does have a history of COPD. However Pt creatinine elevated and CK, and Pt appears dehydrated. Pt intubated due to increased work of breathing. Pt lactic acid today spiked at 3.1, however a repeat was decreased. Strep and legionella urine antigens: neg RIP: + coronavirus chest xray: perihilar and bibasilar opacity, possible pneumonia Plan: Free water 250 mL Q2 to correct hypernatremia Q 6 na checks Abx: Vanc, Zosyn, Levofloxacin Methylprednisolone 40 mg Q6 for COPD component Blood and sputum culture pending Scheduled Duonebs Precedex and fentanyl for sedation Qualifiers: Sepsis type: sepsis due to unspecified organism Qualified Code(s): A41.9 - Sepsis, unspecified organism (2) Acute respiratory failure Current Visit: Yes Status: Acute Pt presented to the ED last night tachypnic, alkalotic and hypoxic. Chest x- ray showed possible pneumonia. Pt was placed on BiPap and subsequently intubated. He is at risk for MRSA due to his < 90 day history of IV antibiotic use. 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 Chest xray: perhilar and bibasilar opacity. Plan: Pt intubated and sedated fentanyl precedex Abx: vancomycin, zosyn, levofloxacin GI prophylaxis: Protonix 40 mg daily Qualifiers: Respiratory failure complication: hypoxia Qualified Code(s): J96.01 - Acute respiratory failure with hypoxia (3) Hypernatremia Current Visit: Yes Status: Acute Pt initial NA was 159. He was initially started on D5, however became hyperglycemic. We are now using free water pushes. 250mL every 2 hours through his OG tube. His Na is correcting. He has a free water deficit of 3.1 L. His Na is correcting appropriately throughout the day. He does have an elevated BUN and creatinine suggestive of a pre renal cause. I suspect dehydration. He was given 1 L bolus of NS and 1 L bolus of D5W and was placed on a D5 W drip at 100mL/ Hr. His CK is also high. We are giving free water and a 1 L LR bolus at this time. He has had an episode of hypotension that was corrected with the bolus. DDx of paraneoplastic syndrome due to new lung nodule. Plan: Normal saline at 75 mL an hour. Free water 250 mL Q2 hr Recheck electrolytes every 6 hours. echo (4) Pneumonia Current Visit: Yes Status: Acute Chest Xray suggestive of bibasilar and perihilar opacity possible pneumonia. Pt is volume depleted. He has had a recent hospitalization and IV antibiotic use. We will cover for MRSA. Pt lung sounds are relatively clear. He is currently intubated and sedated. RIP: coronovirus + Plan: Abx: Vanc, Zosyn, Levofloxacin Fluid replacement Qualifiers: Pneumonia type: due to unspecified organism Laterality: right Lung location: lower lobe of lung Qualified Code(s): J18.1 - Lobar pneumonia, unspecified organism (5) Acute kidney injury Current Visit: No Status: Acute Creatinine and BUN were increased. These are appropriately decreasing. Patient also has an elevated creatinine kinase. He is making urine. There is no UTI however there was blood noted in his UA. Plan: Hydration with free water. Normal saline at 75 mL an hour. Patient has received several fluid boluses. Continue to monitor (6) Status post right hip replacement Current Visit: No Status: Acute Plan as above. (7) Pressure ulcer Current Visit: Yes Status: Acute Approximately 3 cm x 7 cm. Reddened area to the top of this foot as well. Foot is not warm and not cellulitic in appearance. Pulses are present. Plan: Wound care on board Remove pressure from this area. Qualifiers: Pressure ulcer location: heel Pressure ulcer stage: unstageable Laterality: right Qualified Code(s): L89.610 - Pressure ulcer of right heel, unstageable (8) DVT prophylaxis Current Visit: No Status: Acute Heparin every 8. History of Present Illness Consult date: 06/26/16 Requesting physician: Christiano Jarquin Reason for consult: dyspnea History of present illness: Male patient brought to the emergency department from a rehabilitation facility. Patient was at the rehabilitation facility getting physical therapy for a recent right hip fracture and subsequent replacement. It was noted that he had an altered level of consciousness he was sent to the emergency department. Patient was found to be hyper natriuretic had a leukocytosis and was unable to protect his own airway. Patient was intubated emergency department and brought to the ICU. He was initially started on D5W to control his hypernatremia. This made patient very hyperglycemic. Patient was switched to free water pushes. This has reduced his sodium adequately. We will begin to rehydrate patient with normal saline and continue the free water pushes. We will continue to monitor his sodium level as to not decrease it to rapidly. Our goal is 10 mEq a day. Patient's chest x-ray did show perihilar bibasilar opacity consistent with pneumonia. He is currently intubated and sedated. Will treat his pneumonia with vancomycin and Zosyn and levofloxacin. His lactic acid was initially elevated today at 3.1 subsequently decreased. He does have a pressure ulcer to his right heel that we are monitoring he also has some skin reddening to the top of his foot. We are attempting to remove all pressure from this area. I spoke with the Pts . She states that the patient would not wish for CPR to be performed on him. At this time she also does not want a central line placed. I have explained this procedure as well as CPR at length with the patients . She expresses understanding. She states she will call back after she speaks with the patient's sister. At this time we will not place a central line we will not do CPR. The nurse Tiffanie Pierce was in the room for the conversation. Past Med Surg Social Fam HX - Past Medical History Medical history: arthritis, COPD, hyperlipidemia, hypertension Psychiatric history: no psych history - Social History Smoking Status: Unknown if ever smoked Smokeless Tobacco Status: No Alcohol use: unknown Drug use: unknown Medications and Allergies Aspirin [Lo-Dose Aspirin EC] 81 mg PO DAILY 06/02/16 [History] Lisinopril [Zestril] 10 mg PO DAILY 06/02/16 [History] Acetaminophen [Tylenol] 325 mg PO Q8H PRN 06/15/16 [History] Amino Acids/Protein Hydrolys [Pro-Stat Awc Liquid Packet] 30 ml PO QAM 06/15/16 [History] Atorvastatin Calcium [Lipitor] 20 mg PO HS 06/15/16 [History] Docusate [Colace] 200 mg PO DAILY 06/15/16 [History] Multivitamin [Multi-Day Vitamins] 1 each PO DAILY 06/15/16 [History] Triamcinolone Acet 0.1% CRM [Kenalog] 1 appl TP BID 06/15/16 [History] Oxycodone HCl [Oxaydo] 5 - 10 mg PO Q4H PRN #10 tablet.orl 06/17/16 [Rx] Haloperidol Lactate [Haldol] 1 mg IM BID PRN 06/25/16 [History] Thiamine Mononitrate [Vitamin B-1] 100 mg PO DAILY 06/25/16 [History] Allergies No Known Allergies Allergy (Verified 06/01/16 19:41) ROS unobtainable: due to endotracheal tube Physical Examination Vital Signs: Vital Signs, Last 4 Hours Pulse Resp BP Pulse Ox 06/26/16 07:25 24 99/50 98 06/26/16 07:00 80 28 112/49 97 06/26/16 06:00 77 25 96 06/26/16 05:33 26 96 General appearance: other (intubated and sedated) Eyes: nonicteric ENT: oropharynx moist Neck: supple Effort: other (Assisted; breathing over the vent occasionally. ) Auscultation: bilateral: clear Cardiovascular: regular rate and rhythm Gastrointestinal: normoactive bowel sounds, soft, non-distended Integumentary: other (right heel has healing wound that has a blackened center. approximatly 2cm wide x 7cm long. No cellulitic changes around. Area is nonerythematous, and not warm. The top of patient's right foot is reddened but the skin is not broken down. mutiple tattoos on majority of body) Extremities: no cyanosis, no edema, no clubbing, pulses normal Musculoskeletal: no deformities other (sedated, and intubated) Ventilator Settings Ventilator Settings: Ventilator Settings, Last 8 Hours Ventilator Mode A/C Ventilator Mode A/C Ventilator Mode A/C Ventilator Mode A/C Ventilator Mode A/C Ventilator Mode A/C Ventilator Mode A/C Ventilator Mode A/C Ventilator Mode A/C Ventilator Tidal Volume 550 Setting Ventilator Tidal Volume 550 Setting Ventilator Tidal Volume 550 Setting Ventilator Tidal Volume 550 Setting Ventilator Tidal Volume 550 Setting Ventilator Tidal Volume 550 Setting Ventilator Tidal Volume 550 Setting Ventilator Tidal Volume 16 Setting Ventilator Tidal Volume 550 Setting Ventilator Respiratory Rate 16 Setting Ventilator Respiratory Rate 16 Setting Ventilator Respiratory Rate 16 Setting Ventilator Respiratory Rate 16 Setting Ventilator Respiratory Rate 16 Setting Ventilator Respiratory Rate 16 Setting Ventilator Respiratory Rate 16 Setting Ventilator Respiratory Rate 16 Setting Ventilator Respiratory Rate 16 Setting Actual Respiratory Rate 28 Actual Respiratory Rate 28 Actual Respiratory Rate 26 Actual Respiratory Rate 26 Actual Respiratory Rate 23 Actual Respiratory Rate 16 Actual Respiratory Rate 16 Actual Respiratory Rate 16 Actual Respiratory Rate 16 Positive End Expiratory 5 Pressure Positive End Expiratory 5 Pressure Positive End Expiratory 5 Pressure Positive End Expiratory 5 Pressure Positive End Expiratory 5 Pressure Positive End Expiratory 5 Pressure Positive End Expiratory 5 Pressure Positive End Expiratory 5 Pressure Positive End Expiratory 5 Pressure Peak Inspiratory Airway 12 Pressure Peak Inspiratory Airway 12 Pressure Peak Inspiratory Airway 16 Pressure Peak Inspiratory Airway 16 Pressure Peak Inspiratory Airway 22 Pressure Peak Inspiratory Airway 22 Pressure Peak Inspiratory Airway 22 Pressure Peak Inspiratory Airway 23 Pressure Peak Inspiratory Airway 22 Pressure Results - Laboratory Findings CBC and BMP: 06/26/16 04:35 06/26/16 11:11 ABG ABG pH 7.35 pH Units (7.32-7.45) 06/26/16 05:12 ABG pCO2 28 mmHg (35-45) L 06/26/16 05:12 ABG pO2 74 mmHg (85-104) L 06/26/16 05:12 ABG O2 Saturation 94 % (95-98) L 06/26/16 05:12 PT/INR, D-dimer PT 18.8 Seconds (9.4-12.1) H 06/26/16 04:35 Abnormal lab findings: Abnormal lab results WBC 28.4 K/mcL (4.3-11.1) H 06/26/16 04:35 RBC 3.64 M/mcL (4.19-5.50) L 06/26/16 04:35 Hgb 10.8 g/dL (12.9-16.9) L 06/26/16 04:35 Hct 35.5 % (37.5-50.1) L 06/26/16 04:35 MCHC 30.4 g/dL (31.6-35.5) L 06/26/16 04:35 RDW 14.6 % (11.5-14.5) H 06/26/16 04:35 Neutrophils # 27.6 K/mcL (1.6-8.9) H 06/26/16 04:35 Reactive Lymphocytes Present (Not Present) A 06/26/16 04:35 Large Platelets Present (Not Present) A 06/26/16 04:35 Polychromasia 1+ (Not Present) A 06/25/16 20:23 PT 18.8 Seconds (9.4-12.1) H 06/26/16 04:35 ABG pCO2 28 mmHg (35-45) L 06/26/16 05:12 ABG pO2 74 mmHg (85-104) L 06/26/16 05:12 ABG HCO3 15.5 mEQ/L (21-27) L 06/26/16 05:12 ABG Total CO2 16.4 mEq/L (20-26) L 06/26/16 05:12 ABG O2 Saturation 94 % (95-98) L 06/26/16 05:12 ABG Base Excess -9.1 mEq/L (-2.0 to 3.0) L 06/26/16 05:12 Sodium 153 mEq/L (136-145) H 06/26/16 04:35 Chloride 127 mEq/L (98-109) H 06/26/16 04:35 Carbon Dioxide 14 mEq/L (19-29) L 06/26/16 04:35 BUN 101 mg/dL (8-26) H 06/26/16 04:35 Creatinine 3.62 mg/dL (0.72-1.25) H 06/26/16 04:35 Est GFR ( Amer) 20 (> 60) L 06/26/16 04:35 Est GFR (Non-Af Amer) 16 (> 60) L 06/26/16 04:35 BUN/Creatinine Ratio 28 (6-26) H 06/26/16 04:35 Glucose 327 mg/dL (70-99) H 06/26/16 04:35 POC Glucose 174 (58-89) H 06/26/16 02:51 Calculated Osmolality 360 (280-300) H 06/26/16 04:35 Lactic Acid 3.1 mmol/L (0.5-2.2) H 06/26/16 04:35 Calcium 8.1 mg/dL (8.6-10.8) L 06/26/16 04:35 AST 113 Units/L (5-34) H 06/26/16 04:35 Alkaline Phosphatase 136 Units/L (38-126) H 06/26/16 04:35 Troponin I 0.04 ng/mL (0-0.03) H* 06/26/16 04:35 Serum Total Protein 5.9 g/dL (6.0-8.3) L 06/26/16 04:35 Albumin 1.6 g/dL (3.5-5.0) L D 06/26/16 04:35 Globulin 4.3 g/dL (2.4-3.5) H 06/26/16 04:35 Albumin/Globulin Ratio 0.4 (1.1-2.2) L 06/26/16 04:35 Urine Clarity Cloudy (Clear) A 06/25/16 20:55 Urine Protein 30 mg/dL (Neg-Trace) H 06/25/16 20:55 Urine Blood Moderate (Negative) H 06/25/16 20:55 Urine Microscopic WBC 3-5 per hpf (0-3) H 06/25/16 20:55 Ur Squamous Epith Cells Many per lpf (None-Few) H 06/25/16 20:55 - Microbiology Findings Microbiology Findings: Microbiology, Last 48 Hours 06/26/16 06:00 Legionella Antigen - Final Urine,[place] Streptococcus pneumoniae Antigen (M - Final - Clinical Findings Intake & Output: Intake & Output 06/25/16 06/26/16 06/26/16 23:59 07:59 15:59 Intake Total 1000 / 2350 400 / 400 Output Total 650 / 650 Balance 1000 / 2350 -250 / -250 Weight 73.074 kg Consult Discharge Plan - Plan Referrals: NO,PCP [Primary Care Provider] - <Lola Trejo M - Last Filed: 06/26/16 21:45> Date of Encounter: 06/26/16 All Systems: A 10-system review of systems was performed and is negative for pertinent findings except as documented above in the HPI. Physical Examination Vital Signs: Vital Signs, Last 4 Hours Temp Pulse Resp BP Pulse Ox 06/26/16 21:00 56 16 113/55 98 06/26/16 20:21 16 109/65 96 06/26/16 20:18 52 16 109/65 98 06/26/16 19:30 97.7 F 56 16 105/51 97 06/26/16 18:00 56 16 109/54 98 Ventilator Settings Ventilator Settings: Ventilator Settings, Last 8 Hours Ventilator Mode VC+ Ventilator Mode VC+ Ventilator Mode A/C Ventilator Mode A/C Ventilator Mode A/C Ventilator Mode A/C Ventilator Mode A/C Ventilator Mode A/C Ventilator Tidal Volume 550 Setting Ventilator Tidal Volume 550 Setting Ventilator Tidal Volume 550 Setting Ventilator Tidal Volume 550 Setting Ventilator Tidal Volume 550 Setting Ventilator Tidal Volume 550 Setting Ventilator Tidal Volume 550 Setting Ventilator Tidal Volume 550 Setting Ventilator Respiratory Rate 16 Setting Ventilator Respiratory Rate 16 Setting Ventilator Respiratory Rate 16 Setting Ventilator Respiratory Rate 16 Setting Ventilator Respiratory Rate 16 Setting Ventilator Respiratory Rate 16 Setting Ventilator Respiratory Rate 16 Setting Ventilator Respiratory Rate 16 Setting Actual Respiratory Rate 17 Actual Respiratory Rate 17 Actual Respiratory Rate 16 Actual Respiratory Rate 16 Actual Respiratory Rate 16 Actual Respiratory Rate 16 Actual Respiratory Rate 16 Actual Respiratory Rate 16 Positive End Expiratory 5 Pressure Positive End Expiratory 5 Pressure Positive End Expiratory 5 Pressure Positive End Expiratory 5 Pressure Positive End Expiratory 5 Pressure Positive End Expiratory 5 Pressure Positive End Expiratory 5 Pressure Positive End Expiratory 5 Pressure Peak Inspiratory Airway 23 Pressure Peak Inspiratory Airway 23 Pressure Peak Inspiratory Airway 23 Pressure Peak Inspiratory Airway 22 Pressure Results - Laboratory Findings CBC and BMP: 06/26/16 04:35 06/26/16 11:11 ABG ABG pH 7.35 pH Units (7.32-7.45) 06/26/16 05:12 ABG pCO2 28 mmHg (35-45) L 06/26/16 05:12 ABG pO2 74 mmHg (85-104) L 06/26/16 05:12 ABG O2 Saturation 94 % (95-98) L 06/26/16 05:12 PT/INR, D-dimer PT 18.8 Seconds (9.4-12.1) H 06/26/16 04:35 Abnormal lab findings: Abnormal lab results WBC 28.4 K/mcL (4.3-11.1) H 06/26/16 04:35 RBC 3.64 M/mcL (4.19-5.50) L 06/26/16 04:35 Hgb 10.8 g/dL (12.9-16.9) L 06/26/16 04:35 Hct 35.5 % (37.5-50.1) L 06/26/16 04:35 MCHC 30.4 g/dL (31.6-35.5) L 06/26/16 04:35 RDW 14.6 % (11.5-14.5) H 06/26/16 04:35 Neutrophils # 27.6 K/mcL (1.6-8.9) H 06/26/16 04:35 Reactive Lymphocytes Present (Not Present) A 06/26/16 04:35 Large Platelets Present (Not Present) A 06/26/16 04:35 Polychromasia 1+ (Not Present) A 06/25/16 20:23 PT 18.8 Seconds (9.4-12.1) H 06/26/16 04:35 ABG pCO2 28 mmHg (35-45) L 06/26/16 05:12 ABG pO2 74 mmHg (85-104) L 06/26/16 05:12 ABG HCO3 15.5 mEQ/L (21-27) L 06/26/16 05:12 ABG Total CO2 16.4 mEq/L (20-26) L 06/26/16 05:12 ABG O2 Saturation 94 % (95-98) L 06/26/16 05:12 ABG Base Excess -9.1 mEq/L (-2.0 to 3.0) L 06/26/16 05:12 Sodium 149 mEq/L (136-145) H 06/26/16 11:11 Chloride 125 mEq/L (98-109) H 06/26/16 11:11 Carbon Dioxide 12 mEq/L (19-29) L 06/26/16 11:11 BUN 95 mg/dL (8-26) H 06/26/16 11:11 Creatinine 3.23 mg/dL (0.72-1.25) H 06/26/16 11:11 Est GFR ( Amer) 23 (> 60) L 06/26/16 11:11 Est GFR (Non-Af Amer) 19 (> 60) L 06/26/16 11:11 BUN/Creatinine Ratio 29 (6-26) H 06/26/16 11:11 Glucose 156 mg/dL (70-99) H 06/26/16 11:11 POC Glucose 189 (58-89) H 06/26/16 17:55 Calculated Osmolality 341 (280-300) H 06/26/16 11:11 Calcium 8.1 mg/dL (8.6-10.8) L 06/26/16 11:11 AST 113 Units/L (5-34) H 06/26/16 04:35 Alkaline Phosphatase 136 Units/L (38-126) H 06/26/16 04:35 Creatine Kinase 5745 Units/L (30-200) H 06/26/16 09:48 Troponin I 0.04 ng/mL (0-0.03) H* 06/26/16 04:35 Serum Total Protein 5.9 g/dL (6.0-8.3) L 06/26/16 04:35 Albumin 1.6 g/dL (3.5-5.0) L D 06/26/16 04:35 Globulin 4.3 g/dL (2.4-3.5) H 06/26/16 04:35 Albumin/Globulin Ratio 0.4 (1.1-2.2) L 06/26/16 04:35 Urine Clarity Cloudy (Clear) A 06/25/16 20:55 Urine Protein 30 mg/dL (Neg-Trace) H 06/25/16 20:55 Urine Blood Moderate (Negative) H 06/25/16 20:55 Urine Microscopic WBC 3-5 per hpf (0-3) H 06/25/16 20:55 Ur Squamous Epith Cells Many per lpf (None-Few) H 06/25/16 20:55 Coronavirus OC43 (PCR) DETECTED (Not Detect) A 06/26/16 06:00 - Clinical Findings Intake & Output: Intake & Output 06/26/16 06/26/16 06/26/16 07:59 15:59 23:59 Intake Total 250 / 2173.6 993.2 / 993.2 Output Total 350 / 350 Balance 250 / 1998.6 643.2 / 643.2 - Attending Attestation I examined this patient and my medical decision-making was reviewed with the ROOF MECHANIC/PA/Advanced Practice Nurse/Resident Physician. I agree with the documented findings, disposition and treatment plan as described except to the extent set forth below. Patient seen and examined. Labs, radiology, chart personally reviewed. Agree with resident's history and physical, assessment, plan with following comments: NEEDLE POLISHER: Patient sedate and doesn't follows commands, Pulmonary: Acceptable oxygenation and ventilation, however patient has labor breathing, I suspect he could be in pain and changed vent setting to VC+ for a better comfort and add Fentynal to sedation. I don't feel patient has AECOPD and to stop steroid. Cardiovascular: hypotension is due to hypovolemia and replace fluid. GI: Nutrition per dietary and GI prophylaxis per routine Heme: DVT prophylaxis per routine ID: Continue antibiotics and plan to de-escalation Renal; urine out put and renal funtion reviewed. Correct electrolytes carefully and suspect renal function will improve with IVF. Endorcine: blood glucose is monitored Lines: all lines checked and no evidence of infections Skin: skin care to prevent pressure ulcers per nursing routine care Patient's code status was changed per family. I spent 35 min of Critical Care time with this patient. It involved decision making of high complexity to assess, manipulate, and support vital organ system failure and/or to prevent further life threatening deterioration of the patient' s condition. The time involved in the performance of separately reportable procedures was not counted toward critical care time.
--- NOTE | 2016-06-26 09:09 | Electrocardiograph Report ---
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
[2016-06-26] MEDS: Dexmedetomidine HCl 400 MCG/100 ML MLS IVC SCH (09:25)
[2016-06-26 09:27] LABS: Adenovirus Not Detected (Not Detect); Bordetella Pertussis Not Detected (Not Detect); Chlamydophila pneumoniae Not Detected (Not Detect); Coronavirus 229E Not Detected (Not Detect); Coronavirus HKU1 Not Detected (Not Detect); Coronavirus NL63 Not Detected (Not Detect); Coronavirus OC43 ***DETECTED*** (Not Detect); Human Metapneumovirus Not Detected (Not Detect); Human Rhinovirus/Enterovirus Not Detected (Not Detect); Influenza A Subtype 2009 H1 Not Detected (Not Detect); Influenza A Untypeable Not Detected (Not Detect); Influenza B Not Detected (Not Detect); Mycoplasma pneumoniae Not Detected (Not Detect); Parainfluenza Virus 1 Not Detected (Not Detect); Parainfluenza Virus 2 Not Detected (Not Detect); Parainfluenza Virus 3 Not Detected (Not Detect); Parainfluenza Virus 4 Not Detected (Not Detect); Respiratory Syncytial Virus Not Detected (Not Detect)
[2016-06-26] MEDS ORDERED: Potassium Phosphate 44 MEQ in 0.9 % Sodium Chloride 250 ML IVPB PRN (09:37)
[2016-06-26] MEDS ORDERED: Calcium Gluconate 1,000 MG in D5% in Water 100 ML IVPB PRN (09:37)
[2016-06-26] MEDS ORDERED: Magnesium Sulfate 2 GM in D5% in Water 100 ML IVPB PRN (09:37)
[2016-06-26 11:37] LABS: Calcium 8.1 mg/dL (8.6-10.8); Potassium 3.5 mEq/L (3.5-4.5)
[2016-06-26] MEDS ORDERED: Ringers Solution, Lactated 1,000 ML IVC ONE ×2 (11:45→12:34)
[2016-06-26] MEDS ORDERED: Ringers Solution, Lactated 1,000 ML ONE ×2 (11:48→12:35)
[2016-06-26] MEDS ORDERED: Vancomycin 750 MG in D5% in Water 250 ML IVPB ONE (13:00)
--- NOTE | 2016-06-26 17:16 | ECHO - Doppler Report ---
Limited Echocardiogram Name: Carlo Ellis Date of Study: 06/26/2016 Date: 1940 Ht: 72.0 in Medical Record#: [id number] Age: 75 Wt: 161.0 lb Gender: Male BSA: 1.94 Order #: [id number] Location: [facility] Room #: IC10 Reading Physician: Yonatan Butterfield MD, [facility] Meat Soaker: Valentin Norris RDCS Ordering Physician: Avery Wilson DO Primary Physician: None Indications: Evaluate EF Impressions: Normal LV systolic function, LVEF 60%. Normal right ventricular size and function. Moderately calcified aortic valve. There is no evidence of significant aortic stenosis on limited evaluation. Valvular function was otherwise not assessed on this limited study. Left Ventricular Wall Motion: Rest Echo Findings All wall segments showed normal motion. Findings: Study Quality * Technically adequate exam. ECG Findings * Normal sinus rhythm. Left Ventricle * Normal LV systolic function, LVEF 60%. * Normal LV chamber size and wall thickness. Right Ventricle * Normal right ventricular size and function. Left Atrium * Normal left atrial size. Right Atrium * Normal right atrial size. Aortic Valve * Moderately calcified aortic valve. There is no evidence of significant aortic stenosis on limited evaluation. Aorta * Normally sized aortic root. Pericardium * There is no pericardial effusion present. IVC * The IVC is borderline dilated. History Hypertension Diabetes Hypercholesteremia Measurements: BP: 96/ 53 2D Normal Values RVIDd: 2.33 cm IVSd: 1.00 cm 0.6 - 1.0 cm LVIDd: 4.41 cm 3.7 - 5.6 cm LVPWd: .00 cm 0.6 - 1.1 cm LVIDs: 2.88 cm 1.5 - 3.6 cm AO: 3.00 cm < 4.0 cm %FS: 34.70 cm >25 % LA volume: 63 Aortic Valve Peak Luis:2.31 m/sec Peak Grad:21.00 mmHg Mean Grad:12.00 mmHg Updated by Yonatan Butterfield MD, [facility] on 06/26/2016 5:09:53 PM electronically signed on 06/26/2016 5:10:25 PM with status of Final Wall Motion Schmid: 1=Normal, 2=Hypokinesis, 3=Akinesis, 4=Dyskinesis, 5=Aneurysmal, 6=Hyperkinetic, X=Not Visualized (Blank)=Missing
[2016-06-27] MEDS: Insulin LISPRO 300 UNITS/3 ML VIAL SQ SCH ×4 (00:21→17:57)
[2016-06-27] MEDS: FentaNYL (PF) 1,000 MCG in 0.9 % Sodium Chloride 80 ML IVC SCH ×2 (03:15→14:38)
[2016-06-27] MEDS: Dexmedetomidine HCl 400 MCG/100 ML MLS IVC SCH ×2 (03:39→14:38)
[2016-06-27] MEDS: Ipratropium/Albuterol Neb 3 ML IH SCH ×6 (04:18→23:32)
[2016-06-27 04:51] LABS: Hematocrit 28.6 % (37.5-50.1); Mean Corpuscular HGB Conc 31.8 g/dL (31.6-35.5); Mean Corpuscular Hemoglobin 30.4 pg (28.0-33.3); Mean Corpuscular Volume 95.7 fL (83.0-100.0); Platelet Count 283 K/mcL (140-400); Red Blood Count 2.99 M/mcL (4.19-5.50); Red Cell Distribution Width 14.5 % (11.5-14.5)
[2016-06-27 05:04] LABS: Hemoglobin 9.1 g/dL (12.9-16.9)
[2016-06-27 05:07] LABS: Ionized Calcium 1.18 mmol/L (1.15-1.35)
[2016-06-27 05:11] LABS: Calcium 8.3 mg/dL (8.6-10.8); Magnesium 1.9 mg/dL (1.6-2.6); Potassium 3.8 mEq/L (3.5-4.5)
[2016-06-27] MEDS: *HR* Heparin 5,000 UNIT/ML VIAL SQ SCH ×3 (05:15→21:18)
[2016-06-27] MEDS: 0.9 % Sodium Chloride 1,000 ML IVC SCH ×2 (05:15→21:17)
[2016-06-27 05:30] LABS: Lymphocytes # 1.4 K/mcL (0.6-4.6); Monocytes # 0.5 K/mcL (0.0-1.3); Neutrophils # 20.9 K/mcL (1.6-8.9); Platelet Estimate Normal (Normal)
[2016-06-27 05:51] LABS: ABG Base Excess -8.6 mEq/L (-2.0 to 3.0); ABG HCO3 15.8 mEQ/L (21-27); ABG Oxygen Saturation 96 % (95-98); ABG PCO2 28 mmHg (35-45); ABG PH 7.36 pH Units (7.32-7.45); ABG PO2 82 mmHg (85-104); ABG TCO2 16.7 mEq/L (20-26); Blood Gas FiO2 40 %
--- NOTE | 2016-06-27 08:18 | Pulmonology Progress Note ---
<Srikanth Hernandez - Last Filed: 06/27/16 10:45> Date of Encounter: 06/27/16 Time of Encounter: 08:17 Assessment and Plan (1) Acute respiratory failure Current Visit: Yes Status: Acute Likely secondary to underlying hospital-acquired bacterial pneumonia on top of history of COPD, patient is currently on CPAP breathing trial on mechanical ventilation, hopefully he will be able to be extubated today, meanwhile we will continue to treat underlying causes with IV antibiotics and bronchodilator treatment. Qualifiers: Respiratory failure complication: hypoxia Qualified Code(s): J96.01 - Acute respiratory failure with hypoxia (2) Hypernatremia Current Visit: Yes Status: Acute Patient wants brought to the ER from correction, likely this is secondary to severe dehydration, patient's hypernatremia appropriately corrected since this admission, his sodium level has normalized this morning by free water and IV fluid hydration, will continue IV normal saline fluid and continue to closely monitor his sodium level. (3) Metabolic encephalopathy Current Visit: Yes Status: Acute Initially patient present to the ER with change in mental status, this is likely multifactorial from hypernatremia secondary to dehydration and underlying bacterial pneumonia with severe sepsis, his sodium level has normalized and will continue to treat underlying infection with IV antibiotics. (4) Hospital-acquired bacterial pneumonia Current Visit: Yes Status: Acute Patient was recently discharged from this hospital more than a week ago, compared to the chest x-ray from previous admission to this time, it showed patchy opacifications at the lung base bilaterally, suggesting likely multifocal pneumonia, blood culture 2 and urinary antigens came back negative, we will de-escalate current antibiotic regimen to Zosyn and Levaquin, patient's leukocytosis improved this morning, he is currently hemodynamically stable, and severe sepsis resolved. (5) Severe sepsis Current Visit: Yes Status: Acute Initially presented with leukocytosis and tachypnea with end organ damage of DIANNA , likely 2/2 underlying bacterial pneumonia, WBC and renal function have been improving, sepsis resolved, hemodynamically stable at this time, will con't to treat underlying infections with IV abxs. (6) DIANNA (acute kidney injury) Current Visit: Yes Status: Acute No history of CKD, his function has been improving with IV normal saline hydration, DIANNA likely secondary to severe sepsis from bacterial pneumonia, rhabdomyolysis and severe dehydration, will continue IV fluid hydration, avoid nephrotoxic agents, renally dose IV antibiotics and continue to closely monitor his renal function. (7) Anemia Current Visit: Yes Status: Acute No history of chronic anemia, however patient recently had a right hip hemiarthroplasty on 06/03/2016, since then his hemoglobin has been stable around 10-12, today hemoglobin went down to 9.1 from 10.8 however it is likely due to dilutional from IV fluid, no signs of active bleeding, hemodynamically stable, will continue to monitor his hemoglobin. Qualifiers: Qualified Code(s): D64.9 - Anemia, unspecified (8) Rhabdomyolysis Current Visit: Yes Status: Acute This could be secondary to metabolic from hypernatremia, initial CPK 5745, currently patient is on IV normal saline fluid, will recheck the level today and meanwhile continue IV hydration, his renal function has been improving. Qualifiers: Qualified Code(s): M62.82 - Rhabdomyolysis (9) Elevated troponin Current Visit: Yes Status: Acute Likely secondary to demand ischemia from severe dehydration and bacterial pneumonia with sepsis, troponins are adynamic, echo this time showed normal systolic function, ejection fraction 60%, normal right ventricular size and function and moderately calcified aortic valve. (10) Diabetes type 2, controlled Current Visit: Yes Status: Acute Recent hemoglobin A1c is 5.8, glucose has been stable, continue sliding scale insulin. Qualifiers: Qualified Code(s): E11.9 - Type 2 diabetes mellitus without complications (11) Lactic acidosis Current Visit: Yes Status: Acute Resolved, this was likely secondary to underlying bacterial pneumonia with severe sepsis and respiratory failure, we will continue to treat underlying causes with IV antibiotics and mechanical ventilation. 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 (13) DVT prophylaxis Current Visit: Yes Status: Acute Heparin subcutaneous TID. Subjective Principal diagnosis: Metabolic encephalopathy, acute respiratory failure, DIANNA, and hypernatremia Interval history: This is a 75 year old male with history of COPD and recent hip fracture status post hip surgery who was discharged from this hospital more than a week ago but he came back with metabolic encephalopathy, acute respiratory failure, DIANNA and hypernatremia. Patient seen and examined. No acute event overnight, patient is now more wean off of IV sedation, open his eyes to voice however he does not follow simple commands, and currently patient is on CPAP breathing trial. Objective PUL Vital signs: Last Vital Signs Temp 96.5 F L 06/27/16 07:50 Pulse 75 06/27/16 08:00 Resp 11 06/27/16 08:00 BP 125/57 06/27/16 08:00 Pulse Ox 96 06/27/16 08:00 General appearance: no acute distress, other (On light IV sedation) Eyes: nonicteric ENT: oropharynx moist Neck: supple Effort: normal Auscultation: bilateral: diminished breath sounds (Slightly upper), rales (At base) Cardiovascular: regular rate and rhythm Gastrointestinal: normoactive bowel sounds, soft, non-distended Integumentary: other (Multiple tattoos on his upper and lower extremities. Right heel has healing wound that has a blackened center. No cellulitic changes around. Area is nonerythematous, and not warm. The top of patient's right foot is reddened but the skin is not broken down.) Extremities: no cyanosis, no edema Musculoskeletal: no deformities pupils equal and round, other (Open eyes to voice, on light IV sedation) Ventilator Settings Ventilator Settings: Ventilator Settings, Last 8 Hours Ventilator Mode CPAP Ventilator Mode VC+ Ventilator Mode VC+ Ventilator Mode VC+ Ventilator Mode VC+ Ventilator Mode VC+ Ventilator Mode VC+ Ventilator Mode VC+ Ventilator Mode VC+ Ventilator Mode VC+ Ventilator Mode VC+ Ventilator Mode VC+ Ventilator Tidal Volume 550 Setting Ventilator Tidal Volume 550 Setting Ventilator Tidal Volume 550 Setting Ventilator Tidal Volume 550 Setting Ventilator Tidal Volume 550 Setting Ventilator Tidal Volume 550 Setting Ventilator Tidal Volume 550 Setting Ventilator Tidal Volume 550 Setting Ventilator Tidal Volume 550 Setting Ventilator Tidal Volume 550 Setting Ventilator Tidal Volume 550 Setting Ventilator Respiratory Rate 16 Setting Ventilator Respiratory Rate 16 Setting Ventilator Respiratory Rate 16 Setting Ventilator Respiratory Rate 16 Setting Ventilator Respiratory Rate 16 Setting Ventilator Respiratory Rate 16 Setting Ventilator Respiratory Rate 16 Setting Ventilator Respiratory Rate 16 Setting Ventilator Respiratory Rate 16 Setting Ventilator Respiratory Rate 16 Setting Ventilator Respiratory Rate 16 Setting Actual Respiratory Rate 11 Actual Respiratory Rate 16 Actual Respiratory Rate 16 Actual Respiratory Rate 17 Actual Respiratory Rate 16 Actual Respiratory Rate 16 Actual Respiratory Rate 18 Actual Respiratory Rate 18 Actual Respiratory Rate 18 Actual Respiratory Rate 20 Actual Respiratory Rate 20 Positive End Expiratory 5 Pressure Positive End Expiratory 5 Pressure Positive End Expiratory 5 Pressure Positive End Expiratory 5 Pressure Positive End Expiratory 5 Pressure Positive End Expiratory 5 Pressure Positive End Expiratory 5 Pressure Positive End Expiratory 5 Pressure Positive End Expiratory 5 Pressure Positive End Expiratory 5 Pressure Positive End Expiratory 5 Pressure Peak Inspiratory Airway 25 Pressure Peak Inspiratory Airway 25 Pressure Peak Inspiratory Airway 24 Pressure Peak Inspiratory Airway 25 Pressure Peak Inspiratory Airway 25 Pressure Peak Inspiratory Airway 29 Pressure Peak Inspiratory Airway 27 Pressure Peak Inspiratory Airway 22 Pressure Peak Inspiratory Airway 24 Pressure Peak Inspiratory Airway 22 Pressure Results - Laboratory Findings CBC and BMP: 06/27/16 04:08 06/27/16 04:08 ABG ABG pH 7.36 pH Units (7.32-7.45) 06/27/16 05:42 ABG pCO2 28 mmHg (35-45) L 06/27/16 05:42 ABG pO2 82 mmHg (85-104) L 06/27/16 05:42 ABG O2 Saturation 96 % (95-98) 06/27/16 05:42 PT/INR, D-dimer PT 18.8 Seconds (9.4-12.1) H 06/26/16 04:35 Abnormal lab findings: Abnormal lab results WBC 23.2 K/mcL (4.3-11.1) H 06/27/16 04:08 RBC 2.99 M/mcL (4.19-5.50) L 06/27/16 04:08 Hgb 9.1 g/dL (12.9-16.9) L D 06/27/16 04:08 Hct 28.6 % (37.5-50.1) L 06/27/16 04:08 Band Neutrophils % 8.0 % (0-4) H 06/27/16 04:08 Promyelocytes % 2.0 % (0) H 06/27/16 04:08 Neutrophils # 20.9 K/mcL (1.6-8.9) H 06/27/16 04:08 Reactive Lymphocytes Present (Not Present) A 06/26/16 04:35 Large Platelets Present (Not Present) A 06/26/16 04:35 Polychromasia 1+ (Not Present) A 06/25/16 20:23 PT 18.8 Seconds (9.4-12.1) H 06/26/16 04:35 ABG pCO2 28 mmHg (35-45) L 06/27/16 05:42 ABG pO2 82 mmHg (85-104) L 06/27/16 05:42 ABG HCO3 15.8 mEQ/L (21-27) L 06/27/16 05:42 ABG Total CO2 16.7 mEq/L (20-26) L 06/27/16 05:42 ABG Base Excess -8.6 mEq/L (-2.0 to 3.0) L 06/27/16 05:42 Chloride 117 mEq/L (98-109) H 06/27/16 04:08 Carbon Dioxide 13 mEq/L (19-29) L 06/27/16 04:08 BUN 75 mg/dL (8-26) H 06/27/16 04:08 Creatinine 2.71 mg/dL (0.72-1.25) H 06/27/16 04:08 Est GFR ( Amer) 28 (> 60) L 06/27/16 04:08 Est GFR (Non-Af Amer) 23 (> 60) L 06/27/16 04:08 BUN/Creatinine Ratio 28 (6-26) H 06/27/16 04:08 Glucose 174 mg/dL (70-99) H 06/27/16 04:08 POC Glucose 180 (58-89) H 06/27/16 05:13 Calculated Osmolality 320 (280-300) H 06/27/16 04:08 Calcium 8.3 mg/dL (8.6-10.8) L 06/27/16 04:08 AST 113 Units/L (5-34) H 06/26/16 04:35 Alkaline Phosphatase 136 Units/L (38-126) H 06/26/16 04:35 Creatine Kinase 5745 Units/L (30-200) H 06/26/16 09:48 Troponin I 0.04 ng/mL (0-0.03) H* 06/26/16 04:35 Serum Total Protein 5.9 g/dL (6.0-8.3) L 06/26/16 04:35 Albumin 1.6 g/dL (3.5-5.0) L D 06/26/16 04:35 Globulin 4.3 g/dL (2.4-3.5) H 06/26/16 04:35 Albumin/Globulin Ratio 0.4 (1.1-2.2) L 06/26/16 04:35 Urine Clarity Cloudy (Clear) A 06/25/16 20:55 Urine Protein 30 mg/dL (Neg-Trace) H 06/25/16 20:55 Urine Blood Moderate (Negative) H 06/25/16 20:55 Urine Microscopic WBC 3-5 per hpf (0-3) H 06/25/16 20:55 Ur Squamous Epith Cells Many per lpf (None-Few) H 06/25/16 20:55 Coronavirus OC43 (PCR) DETECTED (Not Detect) A 06/26/16 06:00 - Clinical Findings Intake & Output: Intake & Output 06/26/16 06/27/16 06/27/16 23:59 07:59 15:59 Intake Total 1493.2 / 1493.2 2028.8 / 2028.8 Output Total 630 / 630 620 / 620 Balance 863.2 / 863.2 1408.8 / 1408.8 Weight 76 kg Consult Discharge Plan - Plan Referrals: NO,PCP [Primary Care Provider] - <Lola Trejo - Last Filed: 06/27/16 16:23> Date of Encounter: 06/27/16 Objective PUL Vital signs: Last Vital Signs Temp 98.1 F 06/27/16 15:00 Pulse 100 06/27/16 15:05 Resp 20 06/27/16 15:32 BP 114/58 06/27/16 15:00 Pulse Ox 99 06/27/16 15:32 Ventilator Settings Ventilator Settings: Ventilator Settings, Last 8 Hours Ventilator Mode CPAP Ventilator Mode CPAP Ventilator Mode CPAP Actual Respiratory Rate 12 Actual Respiratory Rate 12 Actual Respiratory Rate 15 Positive End Expiratory 5 Pressure Peak Inspiratory Airway 11 Pressure Results - Laboratory Findings CBC and BMP: 06/27/16 04:08 06/27/16 14:13 ABG ABG pH 7.36 pH Units (7.32-7.45) 06/27/16 05:42 ABG pCO2 28 mmHg (35-45) L 06/27/16 05:42 ABG pO2 82 mmHg (85-104) L 06/27/16 05:42 ABG O2 Saturation 96 % (95-98) 06/27/16 05:42 PT/INR, D-dimer PT 18.8 Seconds (9.4-12.1) H 06/26/16 04:35 Abnormal lab findings: Abnormal lab results WBC 23.2 K/mcL (4.3-11.1) H 06/27/16 04:08 RBC 2.99 M/mcL (4.19-5.50) L 06/27/16 04:08 Hgb 9.1 g/dL (12.9-16.9) L D 06/27/16 04:08 Hct 28.6 % (37.5-50.1) L 06/27/16 04:08 Band Neutrophils % 8.0 % (0-4) H 06/27/16 04:08 Promyelocytes % 2.0 % (0) H 06/27/16 04:08 Neutrophils # 20.9 K/mcL (1.6-8.9) H 06/27/16 04:08 Reactive Lymphocytes Present (Not Present) A 06/26/16 04:35 Large Platelets Present (Not Present) A 06/26/16 04:35 Polychromasia 1+ (Not Present) A 06/25/16 20:23 PT 18.8 Seconds (9.4-12.1) H 06/26/16 04:35 ABG pCO2 28 mmHg (35-45) L 06/27/16 05:42 ABG pO2 82 mmHg (85-104) L 06/27/16 05:42 ABG HCO3 15.8 mEQ/L (21-27) L 06/27/16 05:42 ABG Total CO2 16.7 mEq/L (20-26) L 06/27/16 05:42 ABG Base Excess -8.6 mEq/L (-2.0 to 3.0) L 06/27/16 05:42 Chloride 117 mEq/L (98-109) H 06/27/16 04:08 Carbon Dioxide 13 mEq/L (19-29) L 06/27/16 04:08 BUN 75 mg/dL (8-26) H 06/27/16 04:08 Creatinine 2.71 mg/dL (0.72-1.25) H 06/27/16 04:08 Est GFR ( Amer) 28 (> 60) L 06/27/16 04:08 Est GFR (Non-Af Amer) 23 (> 60) L 06/27/16 04:08 BUN/Creatinine Ratio 28 (6-26) H 06/27/16 04:08 Glucose 174 mg/dL (70-99) H 06/27/16 04:08 POC Glucose 170 (58-89) H 06/27/16 11:08 Calculated Osmolality 320 (280-300) H 06/27/16 04:08 Calcium 8.3 mg/dL (8.6-10.8) L 06/27/16 04:08 AST 113 Units/L (5-34) H 06/26/16 04:35 Alkaline Phosphatase 136 Units/L (38-126) H 06/26/16 04:35 Creatine Kinase 4580 Units/L (30-200) H 06/27/16 12:09 Troponin I 0.04 ng/mL (0-0.03) H* 06/26/16 04:35 Serum Total Protein 5.9 g/dL (6.0-8.3) L 06/26/16 04:35 Albumin 1.6 g/dL (3.5-5.0) L D 06/26/16 04:35 Globulin 4.3 g/dL (2.4-3.5) H 06/26/16 04:35 Albumin/Globulin Ratio 0.4 (1.1-2.2) L 06/26/16 04:35 Urine Clarity Cloudy (Clear) A 06/25/16 20:55 Urine Protein 30 mg/dL (Neg-Trace) H 06/25/16 20:55 Urine Blood Moderate (Negative) H 06/25/16 20:55 Urine Microscopic WBC 3-5 per hpf (0-3) H 06/25/16 20:55 Ur Squamous Epith Cells Many per lpf (None-Few) H 06/25/16 20:55 Coronavirus OC43 (PCR) DETECTED (Not Detect) A 06/26/16 06:00 - Clinical Findings Intake & Output: Intake & Output 06/27/16 06/27/16 06/27/16 07:59 15:59 23:59 Intake Total 8.8 / 2028.8 200 / 200 Output Total 620 / 620 900 / 900 Balance 1408.8 / 1408.8 -700 / -700 Weight 76 kg - Attending Attestation I examined this patient and my medical decision-making was reviewed with the INJECTION MACHINE OPERATOR/PA/Advanced Practice Nurse/Resident Physician. I agree with the documented findings, disposition and treatment plan as described except to the extent set forth below. Patient seen and examined. Labs, radiology, chart personally reviewed. Agree with resident's history and physical, assessment, plan with following comments: QA ENGINEER: Patient responded to stimuli Pulmonary: Acceptable oxygenation and ventilation. Patient was extubated successfully Cardiovascular: stable GI: Nutrition per dietary and GI prophylaxis per routine Heme: DVT prophylaxis per routine ID: Continue antibiotics and plan to de-escalation Renal; urine out put and renal funtion reviewed. Hypernatremia improved Endorcine: blood glucose is monitored Lines: all lines checked and no evidence of infections Skin: skin care to prevent pressure ulcers per nursing routine care Patient remained stable with plan to transfer out of ICU in next 24 hours
[2016-06-27] MEDS: Ascorbic Acid 500 MG TABLET PO SCH (08:36)
[2016-06-27] MEDS: Piperacillin/Tazobactam 3.375 GM in D5% in Water (Mini-Bag+) 100 ML IVPB SCH ×2 (08:36→21:17)
[2016-06-27] MEDS: Zinc Sulfate 220 MG CAPSULE PO SCH (08:36)
[2016-06-27] MEDS: Pantoprazole 40 MG VIAL IVPB SCH (08:37)
[2016-06-27] MEDS: Aspirin Enteric Coated 81 MG Tablet PO SCH (08:37)
[2016-06-27 14:05] LABS: Sodium 140 mEq/L (136-145)
[2016-06-27 14:06] LABS: Creatine Kinase 4580 Units/L (30-200)
[2016-06-27 14:28] LABS: Magnesium 2.3 mg/dL (1.6-2.6)
[2016-06-28] MEDS: Insulin LISPRO 300 UNITS/3 ML VIAL SQ SCH ×4 (01:12→17:12)
[2016-06-28] MEDS: Levofloxacin 750 MG/150 ML 750 MG/150 ML BAG IVPB SCH (03:46)
[2016-06-28] MEDS: Ipratropium/Albuterol Neb 3 ML IH SCH ×5 (04:03→20:37)
[2016-06-28] MEDS: 0.9 % Sodium Chloride 1,000 ML IVC SCH (06:07)
[2016-06-28] MEDS: *HR* Heparin 5,000 UNIT/ML VIAL SQ SCH ×3 (06:07→22:53)
[2016-06-28 07:05] LABS: Magnesium 2.1 mg/dL (1.6-2.6); Potassium 3.6 mEq/L (3.5-4.5)
[2016-06-28 07:11] LABS: Hematocrit 28.9 % (37.5-50.1); Hemoglobin 9.2 g/dL (12.9-16.9); Mean Corpuscular HGB Conc 31.8 g/dL (31.6-35.5); Mean Corpuscular Hemoglobin 29.7 pg (28.0-33.3); Mean Corpuscular Volume 93.2 fL (83.0-100.0); Mean Platelet Volume 12.7 fL (9.4-12.4); Monocytes # 1.1 K/mcL (0.0-1.3); Nucleated Red Blood Cells 0.2 /100 WBC (0); Platelet Count 288 K/mcL (140-400); Red Cell Distribution Width 14.6 % (11.5-14.5)
[2016-06-28] MEDS: FentaNYL (PF) 1,000 MCG in 0.9 % Sodium Chloride 80 ML IVC SCH (07:12)
[2016-06-28] MEDS: Piperacillin/Tazobactam 3.375 GM in D5% in Water (Mini-Bag+) 100 ML IVPB SCH ×2 (07:14→20:14)
[2016-06-28] MEDS: Aspirin Enteric Coated 81 MG Tablet PO SCH (07:17)
[2016-06-28] MEDS: Zinc Sulfate 220 MG CAPSULE PO SCH (07:17)
[2016-06-28] MEDS: Ascorbic Acid 500 MG TABLET PO SCH (07:17)
[2016-06-28] MEDS: Pantoprazole 40 MG VIAL IVPB SCH (07:20)
[2016-06-28] MEDS: Dexmedetomidine HCl 400 MCG/100 ML MLS IVC SCH (07:34)
[2016-06-28] MEDS ORDERED: D5% in 0.45% NACL 1,000 ML IVC SCH (07:45)
[2016-06-28 08:29] LABS: Lymphocytes # 0.8 K/mcL (0.6-4.6); Neutrophils # 17.1 K/mcL (1.6-8.9)
[2016-06-28] MEDS ORDERED: *HR* Morphine 2 MG/ML SYRINGE IVP PRN (08:47)
[2016-06-28 09:02] LABS: Platelet Estimate Normal (Normal)
--- NOTE | 2016-06-28 09:39 | Pulmonology Progress Note ---
<Srikanth Hernandez - Last Filed: 06/28/16 10:51> Date of Encounter: 06/28/16 Time of Encounter: 09:39 Assessment and Plan (1) Acute respiratory failure Current Visit: Yes Status: Acute Patient was successfully extubated yesterday, currently satting 95% on 3 L nasal cannula. Likely secondary to underlying hospital-acquired bacterial pneumonia on top of history of COPD, we will continue to treat underlying causes with IV antibiotics and bronchodilator treatment. Patient is stable to be transferred out of ICU to medical floor with telemetry. Qualifiers: Respiratory failure complication: hypoxia Qualified Code(s): J96.01 - Acute respiratory failure with hypoxia (2) Hypernatremia Current Visit: Yes Status: Acute Patient wants brought to the ER from [facility], likely this is secondary to severe dehydration, patient's hypernatremia appropriately corrected since this admission, his sodium level has normalized but the level slightly increased compare to yesterday, IV fluid has been changed to D5 half normal saline at 100 mL per hour, and continue to closely monitor his sodium level. 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 (4) Hospital-acquired bacterial pneumonia Current Visit: Yes Status: Acute Patient was recently discharged from this hospital more than a week ago, compared to the chest x-ray from previous admission to this time, it showed patchy opacifications at the lung base bilaterally, suggesting likely multifocal pneumonia, blood culture 2 and urinary antigens came back negative, we will de-escalate current antibiotic regimen to Zosyn and Levaquin, patient's leukocytosis improved this morning, he is currently hemodynamically stable, and severe sepsis resolved. (5) Severe sepsis Current Visit: Yes Status: Acute Initially presented with leukocytosis and tachypnea with end organ damage of DIANNA , likely 2/2 underlying bacterial pneumonia, WBC and renal function have been improving, sepsis resolved, hemodynamically stable at this time, will con't to treat underlying infections with IV abxs. (6) DIANNA (acute kidney injury) Current Visit: Yes Status: Acute No history of CKD, his function has been improving with IV normal saline hydration, DIANNA likely secondary to severe sepsis from bacterial pneumonia, rhabdomyolysis and severe dehydration, will continue IV fluid hydration, avoid nephrotoxic agents, renally dose IV antibiotics and continue to closely monitor his renal function. (7) Anemia Current Visit: Yes Status: Acute No history of chronic anemia, however patient recently had a right hip hemiarthroplasty on 06/03/2016, since then his hemoglobin has been stable around 10-12, yesterday hemoglobin went down to 9.1 from 10.8 however it is likely due to dilutional from IV fluid, hemoglobin stable this morning, no signs of active bleeding, hemodynamically stable, will continue to monitor his hemoglobin. Qualifiers: Qualified Code(s): D64.9 - Anemia, unspecified (8) Rhabdomyolysis Current Visit: Yes Status: Acute This could be secondary to metabolic from hypernatremia, initial CPK 5745, improved to 3346, currently patient is on IV fluid, will recheck the level tomorrow, his renal function has been improving. Qualifiers: Qualified Code(s): M62.82 - Rhabdomyolysis (9) Elevated troponin Current Visit: Yes Status: Acute Likely secondary to demand ischemia from severe dehydration and bacterial pneumonia with sepsis, troponins are adynamic, echo this time showed normal systolic function, ejection fraction 60%, normal right ventricular size and function and moderately calcified aortic valve. (10) Diabetes type 2, controlled Current Visit: Yes Status: Acute Recent hemoglobin A1c is 5.8, glucose has been stable, continue sliding scale insulin. Qualifiers: Qualified Code(s): E11.9 - Type 2 diabetes mellitus without complications (11) Lactic acidosis Current Visit: Yes Status: Acute Resolved, this was likely secondary to underlying bacterial pneumonia with severe sepsis and respiratory failure, we will continue to treat underlying causes with IV antibiotics and oxygen support. 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 (13) History of right hip hemiarthroplasty Current Visit: Yes Status: Acute Patient still has abduction pillow and optifoam dressing on the right side of the hip, will consult orthopedic surgery to evaluate his right hip, right hip x- ray this morning showed no acute process. (14) DVT prophylaxis Current Visit: Yes Status: Acute Heparin subcutaneous TID. Subjective Principal diagnosis: Metabolic encephalopathy, acute respiratory failure, DIANNA, and hypernatremia Interval history: This is a 75 year old male with history of COPD and recent hip fracture status post hip surgery who was discharged from this hospital more than a week ago but he came back with metabolic encephalopathy, acute respiratory failure, DIANNA and hypernatremia. Patient seen and examined. No acute event overnight, patient was extubated yesterday, currently satting 94% on 3 L nasal cannula, patient is A and O x0, does not follow simple commands, spoke to [facility] people yesterday at the bedside they stated that his current mental status at his baseline due to alcohol induced dementia. Objective PUL Vital signs: Last Vital Signs Temp 98.9 F 06/28/16 07:15 Pulse 104 06/28/16 09:00 Resp 26 06/28/16 09:00 BP 104/47 06/28/16 09:00 Pulse Ox 94 06/28/16 09:00 General appearance: no acute distress Eyes: nonicteric ENT: oropharynx moist Auscultation: bilateral: diminished breath sounds (Slightly upper), rales (At base) Cardiovascular: regular rate and rhythm Gastrointestinal: normoactive bowel sounds, soft, non-tender, non-distended Integumentary: other (Multiple tattoos on his upper and lower extremities. Right heel has healing wound that has a blackened center. No cellulitic changes around. Area is nonerythematous, and not warm. The top of patient's right foot is reddened but the skin is not broken down.) Extremities: no cyanosis, no edema, no clubbing Musculoskeletal: no deformities pupils equal and round, unable to assess due to mental status (Alcohol-induced dementia, likely his current mental status is at his baseline) mood appropriate, affect normal Results - Laboratory Findings CBC and BMP: 06/28/16 06:03 06/28/16 06:03 ABG ABG pH 7.36 pH Units (7.32-7.45) 06/27/16 05:42 ABG pCO2 28 mmHg (35-45) L 06/27/16 05:42 ABG pO2 82 mmHg (85-104) L 06/27/16 05:42 ABG O2 Saturation 96 % (95-98) 06/27/16 05:42 PT/INR, D-dimer PT 18.8 Seconds (9.4-12.1) H 06/26/16 04:35 Abnormal lab findings: Abnormal lab results WBC 19.0 K/mcL (4.3-11.1) H 06/28/16 06:03 RBC 3.10 M/mcL (4.19-5.50) L 06/28/16 06:03 Hgb 9.2 g/dL (12.9-16.9) L 06/28/16 06:03 Hct 28.9 % (37.5-50.1) L 06/28/16 06:03 RDW 14.6 % (11.5-14.5) H 06/28/16 06:03 MPV 12.7 fL (9.4-12.4) H 06/28/16 06:03 Band Neutrophils % 8.0 % (0-4) H 06/27/16 04:08 Promyelocytes % 2.0 % (0) H 06/27/16 04:08 Neutrophils # 17.1 K/mcL (1.6-8.9) H 06/28/16 06:03 Nucleated RBCs/100 WBC 0.2 /100 WBC (0) H 06/28/16 06:03 Reactive Lymphocytes Present (Not Present) A 06/26/16 04:35 Large Platelets Present (Not Present) A 06/26/16 04:35 Polychromasia 1+ (Not Present) A 06/25/16 20:23 PT 18.8 Seconds (9.4-12.1) H 06/26/16 04:35 ABG pCO2 28 mmHg (35-45) L 06/27/16 05:42 ABG pO2 82 mmHg (85-104) L 06/27/16 05:42 ABG HCO3 15.8 mEQ/L (21-27) L 06/27/16 05:42 ABG Total CO2 16.7 mEq/L (20-26) L 06/27/16 05:42 ABG Base Excess -8.6 mEq/L (-2.0 to 3.0) L 06/27/16 05:42 Chloride 121 mEq/L (98-109) H 06/28/16 06:03 Carbon Dioxide 14 mEq/L (19-29) L 06/28/16 06:03 BUN 61 mg/dL (8-26) H 06/28/16 06:03 Creatinine 2.48 mg/dL (0.72-1.25) H 06/28/16 06:03 Est GFR ( Amer) 31 (> 60) L 06/28/16 06:03 Est GFR (Non-Af Amer) 25 (> 60) L 06/28/16 06:03 Glucose 127 mg/dL (70-99) H 06/28/16 06:03 POC Glucose 139 (58-89) H 06/28/16 05:45 Calculated Osmolality 319 (280-300) H 06/28/16 06:03 Calcium 8.0 mg/dL (8.6-10.8) L 06/28/16 06:03 AST 113 Units/L (5-34) H 06/26/16 04:35 Alkaline Phosphatase 136 Units/L (38-126) H 06/26/16 04:35 Creatine Kinase 3346 Units/L (30-200) H 06/28/16 06:03 Troponin I 0.04 ng/mL (0-0.03) H* 06/26/16 04:35 Serum Total Protein 5.9 g/dL (6.0-8.3) L 06/26/16 04:35 Albumin 1.6 g/dL (3.5-5.0) L D 06/26/16 04:35 Globulin 4.3 g/dL (2.4-3.5) H 06/26/16 04:35 Albumin/Globulin Ratio 0.4 (1.1-2.2) L 06/26/16 04:35 Urine Clarity Cloudy (Clear) A 06/25/16 20:55 Urine Protein 30 mg/dL (Neg-Trace) H 06/25/16 20:55 Urine Blood Moderate (Negative) H 06/25/16 20:55 Urine Microscopic WBC 3-5 per hpf (0-3) H 06/25/16 20:55 Ur Squamous Epith Cells Many per lpf (None-Few) H 06/25/16 20:55 Coronavirus OC43 (PCR) DETECTED (Not Detect) A 06/26/16 06:00 - Clinical Findings Intake & Output: Intake & Output 06/27/16 06/28/16 06/28/16 23:59 07:59 15:59 Intake Total 1000 / 1000 1312 / 1312 200 / 200 Output Total 450 / 450 525 / 525 Balance 550 / 550 787 / 787 200 / 200 Weight 69.9 kg Consult Discharge Plan - Plan Referrals: NO,PCP [Primary Care Provider] - <Lola Trejo - Last Filed: 06/28/16 15:19> Date of Encounter: 06/28/16 Objective PUL Vital signs: Last Vital Signs Temp 98.7 F 06/28/16 12:00 Pulse 102 06/28/16 12:00 Resp 24 06/28/16 12:00 BP 101/44 06/28/16 12:00 Pulse Ox 94 06/28/16 12:00 Results - Laboratory Findings CBC and BMP: 06/28/16 06:03 06/28/16 06:03 ABG ABG pH 7.36 pH Units (7.32-7.45) 06/27/16 05:42 ABG pCO2 28 mmHg (35-45) L 06/27/16 05:42 ABG pO2 82 mmHg (85-104) L 06/27/16 05:42 ABG O2 Saturation 96 % (95-98) 06/27/16 05:42 PT/INR, D-dimer PT 18.8 Seconds (9.4-12.1) H 06/26/16 04:35 Abnormal lab findings: Abnormal lab results WBC 19.0 K/mcL (4.3-11.1) H 06/28/16 06:03 RBC 3.10 M/mcL (4.19-5.50) L 06/28/16 06:03 Hgb 9.2 g/dL (12.9-16.9) L 06/28/16 06:03 Hct 28.9 % (37.5-50.1) L 06/28/16 06:03 RDW 14.6 % (11.5-14.5) H 06/28/16 06:03 MPV 12.7 fL (9.4-12.4) H 06/28/16 06:03 Band Neutrophils % 8.0 % (0-4) H 06/27/16 04:08 Promyelocytes % 2.0 % (0) H 06/27/16 04:08 Neutrophils # 17.1 K/mcL (1.6-8.9) H 06/28/16 06:03 Nucleated RBCs/100 WBC 0.2 /100 WBC (0) H 06/28/16 06:03 Reactive Lymphocytes Present (Not Present) A 06/26/16 04:35 Large Platelets Present (Not Present) A 06/26/16 04:35 Polychromasia 1+ (Not Present) A 06/25/16 20:23 PT 18.8 Seconds (9.4-12.1) H 06/26/16 04:35 ABG pCO2 28 mmHg (35-45) L 06/27/16 05:42 ABG pO2 82 mmHg (85-104) L 06/27/16 05:42 ABG HCO3 15.8 mEQ/L (21-27) L 06/27/16 05:42 ABG Total CO2 16.7 mEq/L (20-26) L 06/27/16 05:42 ABG Base Excess -8.6 mEq/L (-2.0 to 3.0) L 06/27/16 05:42 Chloride 121 mEq/L (98-109) H 06/28/16 06:03 Carbon Dioxide 14 mEq/L (19-29) L 06/28/16 06:03 BUN 61 mg/dL (8-26) H 06/28/16 06:03 Creatinine 2.48 mg/dL (0.72-1.25) H 06/28/16 06:03 Est GFR ( Amer) 31 (> 60) L 06/28/16 06:03 Est GFR (Non-Af Amer) 25 (> 60) L 06/28/16 06:03 Glucose 127 mg/dL (70-99) H 06/28/16 06:03 POC Glucose 165 (58-89) H 06/28/16 11:50 Calculated Osmolality 319 (280-300) H 06/28/16 06:03 Calcium 8.0 mg/dL (8.6-10.8) L 06/28/16 06:03 AST 113 Units/L (5-34) H 06/26/16 04:35 Alkaline Phosphatase 136 Units/L (38-126) H 06/26/16 04:35 Creatine Kinase 3346 Units/L (30-200) H 06/28/16 06:03 Troponin I 0.04 ng/mL (0-0.03) H* 06/26/16 04:35 Serum Total Protein 5.9 g/dL (6.0-8.3) L 06/26/16 04:35 Albumin 1.6 g/dL (3.5-5.0) L D 06/26/16 04:35 Globulin 4.3 g/dL (2.4-3.5) H 06/26/16 04:35 Albumin/Globulin Ratio 0.4 (1.1-2.2) L 06/26/16 04:35 Urine Clarity Cloudy (Clear) A 06/25/16 20:55 Urine Protein 30 mg/dL (Neg-Trace) H 06/25/16 20:55 Urine Blood Moderate (Negative) H 06/25/16 20:55 Urine Microscopic WBC 3-5 per hpf (0-3) H 06/25/16 20:55 Ur Squamous Epith Cells Many per lpf (None-Few) H 06/25/16 20:55 Coronavirus OC43 (PCR) DETECTED (Not Detect) A 06/26/16 06:00 - Clinical Findings Intake & Output: Intake & Output 06/27/16 06/28/16 06/28/16 23:59 07:59 15:59 Intake Total 1000 / 1000 1312 / 1312 500 / 500 Output Total 450 / 450 525 / 525 400 / 400 Balance 550 / 550 787 / 787 100 / 100 Weight 69.9 kg - Attending Attestation I examined this patient and my medical decision-making was reviewed with the ADULT SCHOOL COUNSELOR/PA/Advanced Practice Nurse/Resident Physician. I agree with the documented findings, disposition and treatment plan as described except to the extent set forth below. Patient seen and examined. Labs, radiology, chart personally reviewed. Agree with resident's history and physical, assessment, plan with following comments: FIRER WATERTENDER: Patient follows commands, Pulmonary: Acceptable oxygenation and ventilation, however patient is at risk for more complications and atelectasis. It is difficult to do incentive spirometry for this patient. Cardiovascular: stable GI: Nutrition per dietary and GI prophylaxis per routine. Nutrition is an issue and family does not want any feeding tube. Heme: DVT prophylaxis per routine Renal; urine out put and renal funtion reviewed. Change IV fluid to D5 half- normal and monitor sodium level Endorcine: blood glucose is monitored Lines: all lines checked and no evidence of infections Skin: skin care to prevent pressure ulcers per nursing routine care Appreciate palliative care input and help patient will be transferred to the floor. In prognosis is poor.
[2016-06-28] MEDS ORDERED: *HR* Dextrose 50 % in Water (Syg) 50 ML SYRINGE IVP PRN (10:02)
[2016-06-28] MEDS ORDERED: Haloperidol Lactate 5 MG/ML VIAL IM PRN (10:02)
[2016-06-28] MEDS ORDERED: Acetaminophen 650 MG RECTAL SUPP RC PRN (10:02)
[2016-06-28] MEDS ORDERED: D5% in Water 1,000 ML IVC PRN (10:02)
[2016-06-28] MEDS ORDERED: Magnesium Sulfate 2 GM in D5% in Water 100 ML IVPB PRN (10:02)
[2016-06-28] MEDS ORDERED: Sennosides 8.6 MG TABLET PO PRN (10:02)
[2016-06-28] MEDS ORDERED: Naloxone 0.4 MG/ML INJ IVP PRN (10:02)
[2016-06-28] MEDS ORDERED: Ipratropium/Albuterol Neb 3 ML IH PRN (10:02)
[2016-06-28] MEDS ORDERED: Dextrose Gel 15 GM PO PRN ×2 (10:02)
[2016-06-28] MEDS ORDERED: Ondansetron 4 MG/2 ML VIAL IVP PRN (10:02)
[2016-06-28] MEDS: D5% in 0.45% NACL 1,000 ML IVC SCH ×2 (11:14→18:47)
--- NOTE | 2016-06-28 11:40 | Palliative - Consult Note ---
Date of Encounter: 06/28/16 Time of Encounter: 11:30 - Assessment and Plan (1) Right hip pain Current Visit: Yes Status: Acute Assessment and plan: Has low dose Morphine available if needed. Has not utilized. Monitor (2) Agitation Current Visit: Yes Status: Acute Assessment and plan: Has Haldol PRN if needed for agitation. Utilized x1 this am. Monitor (3) Counseling regarding advanced care planning and goals of care Current Visit: Yes Status: Acute Assessment and plan: Contacted via phone at her neighbors house, (Massiel Overton - [phone]). states she has no transportation, and no cell phone minutes. She does not have a ride to the hospital today. Discussed goals of care and updated on current clinical status. is very insistent that pt will not return to [place] , and states she does not desire any senior living on discharge. She states that she will take him home and states "I can give him better care than the senior living". Discussed nutritional status and that he is currently not safe to feed, and unable to participate in speech therapy at this time. states that patient would not want feeding tube, and she would not give consent for this. She states "if he is unable to eat, I will bring him home and let him pass here. I can keep him more comfortable here at home". She also states her main focus is comfort care, and she does not want him put back on ventilator , or any type of resuscitation. She would like to continue fluids and antibiotics for now and give him some more time to recover, as he was recently extubated. Discharge plan will be either Home health or Hospice, depending on pt. status. D/W LORA Weaver. She did state that she would like to remain with [place], and states Dr. Allen is his primary physician. During conversation, she would not discuss their home situation, stating that "there are some things that people just do not need to know." When I continued to try and ask information, she stated "what part of no don't you understand". Palliative will follow pt progress closely and continue planning and discussions with . (4) Acute kidney injury Current Visit: No Status: Acute (5) Hypernatremia Current Visit: Yes Status: Acute (6) Altered mental status Current Visit: No Status: Chronic Qualifiers: Altered mental status type: disorientation Qualified Code(s): R41.0 - Disorientation, unspecified (7) Fracture of femoral neck, right, closed Current Visit: No Status: Acute Qualifiers: Encounter type: subsequent encounter Qualified Code(s): S72.001D - Fracture of unspecified part of neck of right femur, subsequent encounter for closed fracture with routine healing Palliative-CN HPI - Data of Consult Consult date: 06/28/16 Requesting Physician: Christiano Jarquin Primary Care Provider: PCP NO - Consult Narrative History of present illness: Mr. Ellis is a 75 year old male with a history of right hip fracture and arthroplasty in May, who was sent to hospital from [facility] with altered mental status and poor oral intake. Patient had a recent stay last week and was treated with fluids for dehydration. He was hypernatremic with Sodium of 159, and acute kidney injury - BUN/Cr of 114/4.16 on admission. He was also intubated shortly after arrival. With treatment and fluids, his labwork has improved and he has been extubated. Upon my visit, he is awake and eyes are open, however, he follows no commands and is nonverbal. Upper airway secretions noted. Appears calm and in no distress. Dressings intact to right lower extremity. He has not been able to follow commands to participate with speech therapy and is currently NPO status CC: Christiano Jarquin Past Med Surg Social Fam HX - Past Medical History Medical history: arthritis, COPD, hyperlipidemia, hypertension Psychiatric history: no psych history - Social History Smoking Status: Unknown if ever smoked Smokeless Tobacco Status: No Alcohol use: unknown Drug use: unknown Medications and Allergies Aspirin [Lo-Dose Aspirin EC] 81 mg PO DAILY 06/02/16 [History] Lisinopril [Zestril] 10 mg PO DAILY 06/02/16 [History] Acetaminophen [Tylenol] 325 mg PO Q8H PRN 06/15/16 [History] Amino Acids/Protein Hydrolys [Pro-Stat Awc Liquid Packet] 30 ml PO QAM 06/15/16 [History] Atorvastatin Calcium [Lipitor] 20 mg PO HS 06/15/16 [History] Docusate [Colace] 200 mg PO DAILY 06/15/16 [History] Multivitamin [Multi-Day Vitamins] 1 each PO DAILY 06/15/16 [History] Triamcinolone Acet 0.1% CRM [Kenalog] 1 appl TP BID 06/15/16 [History] Oxycodone HCl [Oxaydo] 5 - 10 mg PO Q4H PRN #10 tablet.orl 06/17/16 [Rx] Haloperidol Lactate [Haldol] 1 mg IM BID PRN 06/25/16 [History] Thiamine Mononitrate [Vitamin B-1] 100 mg PO DAILY 06/25/16 [History] Allergies No Known Allergies Allergy (Verified 06/01/16 19:41) ROS unobtainable: due to mental status Palliative Care-Exam - Constitutional Vitals: Temp Pulse Resp BP Pulse Ox 98.9 F 99 20 103/58 96 06/28/16 07:15 06/28/16 10:00 06/28/16 10:00 06/28/16 10:00 06/28/16 10:00 General appearance: Present: no acute distress - Head Head Exam: Present: normal inspection, normocephalic - Respiratory Additional comments: Scattered rhonchi noted throughout. - Cardiovascular Cardiovascular exam: Present: +S1, +S2 - GI/Abdominal Exam GI/Abdominal exam: Present: normal bowel sounds, soft - Catheter Type: Urethral ([place]wan) - Neurological Exam Neurological exam: Present: alert Additional comments: Eyes open, does not follow commands, does not attempt to verbalize - Skin Additional comments: Rt lower leg extremities with dressing D/I. These have been recently changed , I did not remove Internal Medicine - CN: Reslt - Labs CBC & Chem 7: 06/28/16 06:03 06/28/16 06:03 Labs: Short CBC 06/28/16 Range/Units 06:03 WBC 19.0 H (4.3-11.1) K/mcL Hgb 9.2 L (12.9-16.9) g/dL Hct 28.9 L (37.5-50.1) % Plt Count 288 (140-400) K/mcL Neutrophils # 17.1 H (1.6-8.9) K/mcL BMP 06/27/16 06/27/16 06/28/16 12:09 14:13 06:03 Sodium 140 145 Potassium 4.0 3.6 Chloride 121 H Carbon Dioxide 14 L BUN 61 H Creatinine 2.48 H Glucose 127 H Calcium 8.0 L - ABG Interpretation ABG results: ABG ABG pH 7.36 pH Units (7.32-7.45) 06/27/16 05:42 ABG pCO2 28 mmHg (35-45) L 06/27/16 05:42 ABG pO2 82 mmHg (85-104) L 06/27/16 05:42 ABG O2 Saturation 96 % (95-98) 06/27/16 05:42 PT/INR, D-dimer PT 18.8 Seconds (9.4-12.1) H 06/26/16 04:35 - Impressions Impressions Hip X-Ray 06/28/16 08:27 IMPRESSION: Status post right hip arthroplasty with no acute abnormality. D/ / 06/28/2016 09:05:20 Boo Purvis MD / sanjiv Interpreting Provider: Boo Purvis MD Consult Discharge Plan - Plan Referrals: NO,PCP [Primary Care Provider] - Palliative Quality Palliative Quality: Screen for Code Status: Yes, Screen for Goals of Care: Yes, Screen for Pain: Yes, If Pain Regimen Started, Initiate Bowel Regimen: NA, Screen for Nausea/Vomitting: Yes Code Status: 06/28/16 11:27 DNR [Resuscitation Status: Active] [RES] Routine Comment: Resuscitation Status: DNR-Comfort Care
[2016-06-28] MEDS: *HR* Morphine 2 MG/ML SYRINGE IVP PRN ×2 (15:14→20:43)
[2016-06-29] MEDS: Ipratropium/Albuterol Neb 3 ML IH SCH ×4 (00:20→11:40)
[2016-06-29] MEDS: Insulin LISPRO 300 UNITS/3 ML VIAL SQ SCH ×2 (00:40→06:19)
[2016-06-29 03:11] LABS: Hematocrit 29.2 % (37.5-50.1); Hemoglobin 9.2 g/dL (12.9-16.9); Mean Corpuscular HGB Conc 31.5 g/dL (31.6-35.5); Mean Corpuscular Hemoglobin 29.7 pg (28.0-33.3); Mean Corpuscular Volume 94.2 fL (83.0-100.0); Mean Platelet Volume 11.6 fL (9.4-12.4); Nucleated Red Blood Cells 0.1 /100 WBC (0); Platelet Count 255 K/mcL (140-400); Red Cell Distribution Width 14.7 % (11.5-14.5)
[2016-06-29 03:37] LABS: Calcium 7.9 mg/dL (8.6-10.8); Potassium 3.9 mEq/L (3.5-4.5)
[2016-06-29 03:44] LABS: Lymphocytes # 2.4 K/mcL (0.6-4.6); Monocytes # 1.3 K/mcL (0.0-1.3); Neutrophils # 13.1 K/mcL (1.6-8.9); Platelet Estimate Normal (Normal)
[2016-06-29] MEDS: D5% in 0.45% NACL 1,000 ML IVC SCH (05:23)
[2016-06-29] MEDS: *HR* Heparin 5,000 UNIT/ML VIAL SQ SCH (05:23)
[2016-06-29] MEDS: Piperacillin/Tazobactam 3.375 GM in D5% in Water (Mini-Bag+) 100 ML IVPB SCH (07:42)
--- NOTE | 2016-06-29 08:17 | Pulmonology Progress Note ---
<Srikanth Hernandez - Last Filed: 06/29/16 11:27> Date of Encounter: 06/29/16 Time of Encounter: 08:17 Assessment and Plan (1) Acute respiratory failure Status: Acute Patient was successfully extubated two days ago, currently satting 95% on 3 L nasal cannula. Likely secondary to underlying hospital-acquired bacterial pneumonia on top of history of COPD, we will continue to treat underlying causes with IV antibiotics and bronchodilator treatment. Patient is stable to be transferred out of ICU to medical floor. Qualifiers: Respiratory failure complication: hypoxia Qualified Code(s): J96.01 - Acute respiratory failure with hypoxia (2) Hypernatremia Status: Acute Patient wants brought to the ER from skilled nursing, likely this is secondary to severe dehydration, patient's hypernatremia appropriately corrected since this admission, his sodium level has normalized but the level slightly increased compare to yesterday, IV fluid has been changed to D5 half normal saline at 100 mL per hour, and continue to closely monitor his sodium level. 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 (4) Hospital-acquired bacterial pneumonia Status: Acute Patient was recently discharged from this hospital more than a week ago, compared to the chest x-ray from previous admission to this time, it showed patchy opacifications at the lung base bilaterally, suggesting likely multifocal pneumonia, blood culture 2 and urinary antigens came back negative, we will de-escalate current antibiotic regimen to Zosyn and Levaquin, patient's leukocytosis improved this morning, he is currently hemodynamically stable, and severe sepsis resolved. (5) Severe sepsis Status: Acute Initially presented with leukocytosis and tachypnea with end organ damage of DIANNA , likely 2/2 underlying bacterial pneumonia, WBC and renal function have been improving, sepsis resolved, hemodynamically stable at this time, will con't to treat underlying infections with IV abxs. (6) DIANNA (acute kidney injury) Status: Acute No history of CKD, his function has been improving with IV normal saline hydration, DIANNA likely secondary to severe sepsis from bacterial pneumonia, rhabdomyolysis and severe dehydration, will continue IV fluid hydration, avoid nephrotoxic agents, renally dose IV antibiotics and continue to closely monitor his renal function. (7) Anemia Status: Acute No history of chronic anemia, however patient recently had a right hip hemiarthroplasty on 06/03/2016, since then his hemoglobin has been stable around 10-12, yesterday hemoglobin went down to 9.1 from 10.8 however it is likely due to dilutional from IV fluid, hemoglobin stable this morning, no signs of active bleeding, hemodynamically stable, will continue to monitor his hemoglobin. Qualifiers: Qualified Code(s): D64.9 - Anemia, unspecified (8) Rhabdomyolysis Status: Acute This could be secondary to metabolic from hypernatremia, initial CPK 5745, improved to 3346 but increased again today, currently patient is on IV fluid, will recheck the level tomorrow. Qualifiers: Qualified Code(s): M62.82 - Rhabdomyolysis (9) Elevated troponin Status: Acute Likely secondary to demand ischemia from severe dehydration and bacterial pneumonia with sepsis, troponins are adynamic, echo this time showed normal systolic function, ejection fraction 60%, normal right ventricular size and function and moderately calcified aortic valve. (10) Diabetes type 2, controlled Status: Acute Recent hemoglobin A1c is 5.8, glucose has been stable, continue sliding scale insulin. Qualifiers: Qualified Code(s): E11.9 - Type 2 diabetes mellitus without complications (11) Lactic acidosis Status: Acute Resolved, this was likely secondary to underlying bacterial pneumonia with severe sepsis and respiratory failure, we will continue to treat underlying causes with IV antibiotics and oxygen support. 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 (13) History of right hip hemiarthroplasty Status: Acute Patient still has abduction pillow and optifoam dressing on the right side of the hip, ortho surgery has been consulted, right hip x-ray this morning showed no acute process. (14) DVT prophylaxis Status: Acute Heparin subcutaneous TID. Subjective Principal diagnosis: Metabolic encephalopathy, acute respiratory failure, DIANNA, and hypernatremia Interval history: This is a 75 year old male with history of COPD and recent hip fracture status post hip surgery who was discharged from this hospital more than a week ago but he came back with metabolic encephalopathy, acute respiratory failure, DIANNA and hypernatremia. Patient seen and examined. No acute event overnight, patient was extubated 2 days ago, currently satting 94% on 3 L nasal cannula, patient is A and O x0, does not follow simple commands, spoke to skilled nursing people at the bedside two days ago, they stated that his current mental status at his baseline due to alcohol induced dementia. Objective PUL Vital signs: Last Vital Signs Temp 97.5 F L 06/29/16 07:00 Pulse 94 06/29/16 07:45 Resp 26 06/29/16 07:45 BP 116/54 06/29/16 07:45 Pulse Ox 94 06/29/16 07:45 General appearance: no acute distress, other (A and Ox0) Eyes: nonicteric ENT: oropharynx moist Neck: supple Auscultation: bilateral: diminished breath sounds (at base) Cardiovascular: regular rate and rhythm Gastrointestinal: normoactive bowel sounds, soft, non-tender, non-distended Integumentary: other (multiple tattoos in his body) Extremities: no cyanosis, no edema, no clubbing Musculoskeletal: no deformities pupils equal and round, unable to assess due to mental status mood appropriate, affect normal Results - Laboratory Findings CBC and BMP: 06/29/16 03:05 06/29/16 03:05 ABG ABG pH 7.36 pH Units (7.32-7.45) 06/27/16 05:42 ABG pCO2 28 mmHg (35-45) L 06/27/16 05:42 ABG pO2 82 mmHg (85-104) L 06/27/16 05:42 ABG O2 Saturation 96 % (95-98) 06/27/16 05:42 PT/INR, D-dimer PT 18.8 Seconds (9.4-12.1) H 06/26/16 04:35 Abnormal lab findings: Abnormal lab results WBC 16.8 K/mcL (4.3-11.1) H 06/29/16 03:05 RBC 3.10 M/mcL (4.19-5.50) L 06/29/16 03:05 Hgb 9.2 g/dL (12.9-16.9) L 06/29/16 03:05 Hct 29.2 % (37.5-50.1) L 06/29/16 03:05 MCHC 31.5 g/dL (31.6-35.5) L 06/29/16 03:05 RDW 14.7 % (11.5-14.5) H 06/29/16 03:05 Band Neutrophils % 8.0 % (0-4) H 06/27/16 04:08 Promyelocytes % 2.0 % (0) H 06/27/16 04:08 Neutrophils # 13.1 K/mcL (1.6-8.9) H 06/29/16 03:05 Nucleated RBCs/100 WBC 0.1 /100 WBC (0) H 06/29/16 03:05 Reactive Lymphocytes Present (Not Present) A 06/26/16 04:35 Large Platelets Present (Not Present) A 06/26/16 04:35 Polychromasia 1+ (Not Present) A 06/25/16 20:23 PT 18.8 Seconds (9.4-12.1) H 06/26/16 04:35 ABG pCO2 28 mmHg (35-45) L 06/27/16 05:42 ABG pO2 82 mmHg (85-104) L 06/27/16 05:42 ABG HCO3 15.8 mEQ/L (21-27) L 06/27/16 05:42 ABG Total CO2 16.7 mEq/L (20-26) L 06/27/16 05:42 ABG Base Excess -8.6 mEq/L (-2.0 to 3.0) L 06/27/16 05:42 Chloride 123 mEq/L (98-109) H 06/29/16 03:05 Carbon Dioxide 12 mEq/L (19-29) L 06/29/16 03:05 BUN 47 mg/dL (8-26) H D 06/29/16 03:05 Creatinine 2.34 mg/dL (0.72-1.25) H 06/29/16 03:05 Est GFR ( Amer) 33 (> 60) L 06/29/16 03:05 Est GFR (Non-Af Amer) 27 (> 60) L 06/29/16 03:05 Glucose 157 mg/dL (70-99) H 06/29/16 03:05 POC Glucose 192 (58-89) H 06/29/16 06:11 Calculated Osmolality 316 (280-300) H 06/29/16 03:05 Calcium 7.9 mg/dL (8.6-10.8) L 06/29/16 03:05 AST 113 Units/L (5-34) H 06/26/16 04:35 Alkaline Phosphatase 136 Units/L (38-126) H 06/26/16 04:35 Creatine Kinase 5395 Units/L (30-200) H 06/29/16 03:05 Troponin I 0.04 ng/mL (0-0.03) H* 06/26/16 04:35 Serum Total Protein 5.9 g/dL (6.0-8.3) L 06/26/16 04:35 Albumin 1.6 g/dL (3.5-5.0) L D 06/26/16 04:35 Globulin 4.3 g/dL (2.4-3.5) H 06/26/16 04:35 Albumin/Globulin Ratio 0.4 (1.1-2.2) L 06/26/16 04:35 Urine Clarity Cloudy (Clear) A 06/25/16 20:55 Urine Protein 30 mg/dL (Neg-Trace) H 06/25/16 20:55 Urine Blood Moderate (Negative) H 06/25/16 20:55 Urine Microscopic WBC 3-5 per hpf (0-3) H 06/25/16 20:55 Ur Squamous Epith Cells Many per lpf (None-Few) H 06/25/16 20:55 Coronavirus OC43 (PCR) DETECTED (Not Detect) A 06/26/16 06:00 - Clinical Findings Intake & Output: Intake & Output 06/28/16 06/29/16 06/29/16 23:59 07:59 15:59 Intake Total 1000 / 1000 1100 / 1100 Output Total 150 / 150 675 / 675 Balance 850 / 850 425 / 425 Weight 78 kg Consult Discharge Plan - Plan Referrals: Amador Allen MD [Partnered Physician] - (Hospice team will confirm with pt's family member if he would like to be f/u with his PCP or hospice physician) Prescriptions: LORazepam Oral Conc [Ativan Oral Conc] 0.5 mg PO Q6HR PRN #15 mls PRN Reason: anxiety/restlessness Haloperidol Oral Conc [Haldol] 1 mg PO Q6H PRN #15 mls PRN Reason: Agitation Morphine Oral CONC [Roxanol] 5 - 10 mg PO Q1H PRN #15 oral.syg PRN Reason: shortness of breath/pain <NeilLola M - Last Filed: 06/29/16 23:24> Date of Encounter: 06/29/16 Objective PUL Vital signs: Last Vital Signs Temp 98.5 F 06/29/16 10:02 Pulse 100 06/29/16 10:02 Resp 18 06/29/16 11:41 BP 111/60 06/29/16 10:02 Pulse Ox 94 06/29/16 11:41 Results - Laboratory Findings CBC and BMP: 06/29/16 03:05 06/29/16 03:05 ABG ABG pH 7.36 pH Units (7.32-7.45) 06/27/16 05:42 ABG pCO2 28 mmHg (35-45) L 06/27/16 05:42 ABG pO2 82 mmHg (85-104) L 06/27/16 05:42 ABG O2 Saturation 96 % (95-98) 06/27/16 05:42 PT/INR, D-dimer PT 18.8 Seconds (9.4-12.1) H 06/26/16 04:35 Abnormal lab findings: Abnormal lab results WBC 16.8 K/mcL (4.3-11.1) H 06/29/16 03:05 RBC 3.10 M/mcL (4.19-5.50) L 06/29/16 03:05 Hgb 9.2 g/dL (12.9-16.9) L 06/29/16 03:05 Hct 29.2 % (37.5-50.1) L 06/29/16 03:05 MCHC 31.5 g/dL (31.6-35.5) L 06/29/16 03:05 RDW 14.7 % (11.5-14.5) H 06/29/16 03:05 Band Neutrophils % 8.0 % (0-4) H 06/27/16 04:08 Promyelocytes % 2.0 % (0) H 06/27/16 04:08 Neutrophils # 13.1 K/mcL (1.6-8.9) H 06/29/16 03:05 Nucleated RBCs/100 WBC 0.1 /100 WBC (0) H 06/29/16 03:05 Reactive Lymphocytes Present (Not Present) A 06/26/16 04:35 Large Platelets Present (Not Present) A 06/26/16 04:35 Polychromasia 1+ (Not Present) A 06/25/16 20:23 PT 18.8 Seconds (9.4-12.1) H 06/26/16 04:35 ABG pCO2 28 mmHg (35-45) L 06/27/16 05:42 ABG pO2 82 mmHg (85-104) L 06/27/16 05:42 ABG HCO3 15.8 mEQ/L (21-27) L 06/27/16 05:42 ABG Total CO2 16.7 mEq/L (20-26) L 06/27/16 05:42 ABG Base Excess -8.6 mEq/L (-2.0 to 3.0) L 06/27/16 05:42 Chloride 123 mEq/L (98-109) H 06/29/16 03:05 Carbon Dioxide 12 mEq/L (19-29) L 06/29/16 03:05 BUN 47 mg/dL (8-26) H D 06/29/16 03:05 Creatinine 2.34 mg/dL (0.72-1.25) H 06/29/16 03:05 Est GFR ( Amer) 33 (> 60) L 06/29/16 03:05 Est GFR (Non-Af Amer) 27 (> 60) L 06/29/16 03:05 Glucose 157 mg/dL (70-99) H 06/29/16 03:05 POC Glucose 192 (58-89) H 06/29/16 06:11 Calculated Osmolality 316 (280-300) H 06/29/16 03:05 Calcium 7.9 mg/dL (8.6-10.8) L 06/29/16 03:05 AST 113 Units/L (5-34) H 06/26/16 04:35 Alkaline Phosphatase 136 Units/L (38-126) H 06/26/16 04:35 Creatine Kinase 5395 Units/L (30-200) H 06/29/16 03:05 Troponin I 0.04 ng/mL (0-0.03) H* 06/26/16 04:35 Serum Total Protein 5.9 g/dL (6.0-8.3) L 06/26/16 04:35 Albumin 1.6 g/dL (3.5-5.0) L D 06/26/16 04:35 Globulin 4.3 g/dL (2.4-3.5) H 06/26/16 04:35 Albumin/Globulin Ratio 0.4 (1.1-2.2) L 06/26/16 04:35 Urine Clarity Cloudy (Clear) A 06/25/16 20:55 Urine Protein 30 mg/dL (Neg-Trace) H 06/25/16 20:55 Urine Blood Moderate (Negative) H 06/25/16 20:55 Urine Microscopic WBC 3-5 per hpf (0-3) H 06/25/16 20:55 Ur Squamous Epith Cells Many per lpf (None-Few) H 06/25/16 20:55 Coronavirus OC43 (PCR) DETECTED (Not Detect) A 06/26/16 06:00 - Clinical Findings Intake & Output: Intake & Output 06/29/16 06/29/16 06/29/16 07:59 15:59 23:59 Intake Total 1100 / 1100 591 / 591 Output Total 675 / 675 Balance 425 / 425 591 / 591 Weight 78 kg - Attending Attestation I examined this patient and my medical decision-making was reviewed with the SYSTEMS TESTING LABORATORY TECHNICIAN/PA/Advanced Practice Nurse/Resident Physician. I agree with the documented findings, disposition and treatment plan as described except to the extent set forth below. Patient seen and examined. Labs, radiology, chart personally reviewed. 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 Continue IVF and hypernatremia has improved. Appreciate palliative care help.
[2016-06-29] MEDS ORDERED: Zinc Sulfate 220 MG CAPSULE PO SCH (09:00)
[2016-06-29] MEDS ORDERED: Pantoprazole 40 MG VIAL IVPB SCH (09:00)
[2016-06-29] MEDS ORDERED: Aspirin Enteric Coated 81 MG Tablet PO SCH (09:00)
[2016-06-29] MEDS ORDERED: Ascorbic Acid 500 MG TABLET PO SCH (09:00)
[2016-06-29 10:03] VITALS: BP 111/60
[2016-06-29] MEDS: *HR* Morphine 2 MG/ML SYRINGE IVP PRN (10:15)
--- NOTE | 2016-06-29 10:16 | Palliative Progress Note ---
Date of Encounter: 06/29/16 Time of Encounter: 09:30 - Assessment and plan (1) Right hip pain Current Visit: Yes Status: Acute Assessment and plan: Continue IV Morphine - will need to transitions to Roxanol (2) Agitation Current Visit: Yes Status: Acute Assessment and plan: Has Haldol PRN. This could transition to sublingual if needed. (3) Counseling regarding advanced care planning and goals of care Current Visit: Yes Status: Acute Assessment and plan: Long discussion with , Michelle via speaker phone with myself and Danyel PAULINO. Updated her on current clinical status. Patient's describes great decline since surgery, and discussed that he wants to be home. She understands that we are not able to give him oral nutrition r/t dysphagia, and she refuses artificial feedings. She would like him to be transferred home with hospice care, and only wants him to be comfortable. She is aware that he is unable to take any po medications, and pain/anxiety meds will need given with concentrated drops. She is also aware aggressive antibiotics would be stopped, and that if he has distress or condition worsens at home, they goal would be to call hospice and keep him comfortable, knowing that he may likely not survive long. states she has experience as nurses aide and understands the care he would need. She asked he be transferred home today if possible. Referral called to [facility]. D/W Dr. Hernandez, Icu resident. Will anticipate d /c later today when arrangements are completed. Prescriptions for comfort meds faxed to [facility]. (4) Acute kidney injury Current Visit: No Status: Acute (5) Hypernatremia Current Visit: Yes Status: Acute (6) Altered mental status Current Visit: No Status: Chronic Qualifiers: Qualified Code(s): R41.0 - Disorientation, unspecified (7) Fracture of femoral neck, right, closed Current Visit: No Status: Acute - Time Spent With Patient Total time spent is greater than 50% in coordination of care (as documented) at patient's floor/unit and/or counseling patient: 25 - 35 minutes - Subjective Interval history: Patient transferred to from ICU. He is awake with eyes open. Still does not follow any commands. No verbal response. Audible gurgling. Attempted to suction, no gag noted during suctioning and no return of secretions. Patient did eventually cough on his own and cleared some. No visitors present. Appears to be comfortable. - Constitutional Vitals: Abnormal lab results WBC 16.8 K/mcL (4.3-11.1) H 06/29/16 03:05 RBC 3.10 M/mcL (4.19-5.50) L 06/29/16 03:05 Hgb 9.2 g/dL (12.9-16.9) L 06/29/16 03:05 Hct 29.2 % (37.5-50.1) L 06/29/16 03:05 MCHC 31.5 g/dL (31.6-35.5) L 06/29/16 03:05 RDW 14.7 % (11.5-14.5) H 06/29/16 03:05 Band Neutrophils % 8.0 % (0-4) H 06/27/16 04:08 Promyelocytes % 2.0 % (0) H 06/27/16 04:08 Neutrophils # 13.1 K/mcL (1.6-8.9) H 06/29/16 03:05 Nucleated RBCs/100 WBC 0.1 /100 WBC (0) H 06/29/16 03:05 Reactive Lymphocytes Present (Not Present) A 06/26/16 04:35 Large Platelets Present (Not Present) A 06/26/16 04:35 Polychromasia 1+ (Not Present) A 06/25/16 20:23 PT 18.8 Seconds (9.4-12.1) H 06/26/16 04:35 ABG pCO2 28 mmHg (35-45) L 06/27/16 05:42 ABG pO2 82 mmHg (85-104) L 06/27/16 05:42 ABG HCO3 15.8 mEQ/L (21-27) L 06/27/16 05:42 ABG Total CO2 16.7 mEq/L (20-26) L 06/27/16 05:42 ABG Base Excess -8.6 mEq/L (-2.0 to 3.0) L 06/27/16 05:42 Chloride 123 mEq/L (98-109) H 06/29/16 03:05 Carbon Dioxide 12 mEq/L (19-29) L 06/29/16 03:05 BUN 47 mg/dL (8-26) H D 06/29/16 03:05 Creatinine 2.34 mg/dL (0.72-1.25) H 06/29/16 03:05 Est GFR ( Amer) 33 (> 60) L 06/29/16 03:05 Est GFR (Non-Af Amer) 27 (> 60) L 06/29/16 03:05 Glucose 157 mg/dL (70-99) H 06/29/16 03:05 POC Glucose 192 (58-89) H 06/29/16 06:11 Calculated Osmolality 316 (280-300) H 06/29/16 03:05 Calcium 7.9 mg/dL (8.6-10.8) L 06/29/16 03:05 AST 113 Units/L (5-34) H 06/26/16 04:35 Alkaline Phosphatase 136 Units/L (38-126) H 06/26/16 04:35 Creatine Kinase 5395 Units/L (30-200) H 06/29/16 03:05 Troponin I 0.04 ng/mL (0-0.03) H* 06/26/16 04:35 Serum Total Protein 5.9 g/dL (6.0-8.3) L 06/26/16 04:35 Albumin 1.6 g/dL (3.5-5.0) L D 06/26/16 04:35 Globulin 4.3 g/dL (2.4-3.5) H 06/26/16 04:35 Albumin/Globulin Ratio 0.4 (1.1-2.2) L 06/26/16 04:35 Urine Clarity Cloudy (Clear) A 06/25/16 20:55 Urine Protein 30 mg/dL (Neg-Trace) H 06/25/16 20:55 Urine Blood Moderate (Negative) H 06/25/16 20:55 Urine Microscopic WBC 3-5 per hpf (0-3) H 06/25/16 20:55 Ur Squamous Epith Cells Many per lpf (None-Few) H 06/25/16 20:55 Coronavirus OC43 (PCR) DETECTED (Not Detect) A 06/26/16 06:00 General appearance: Present: no acute distress - Respiratory Additional comments: Rhonchi throughout anterior chest - Cardiovascular Cardiovascular exam: Present: +S1, +S2 - GI/Abdominal GI/Abdominal exam: Present: normal bowel sounds, soft - Additional comments: Swan with yellow urine noted - Extremities Exam Additional comments: Dressings to right heel and rt lower leg intact. DTI noted to top of right foot - Neurological Exam Neurological exam: Present: alert Additional comments: Eyes open, will not follow commands. - Skin Skin exam: Present: dry, pallor, warm Palliative Quality Palliative Quality: Screen for Code Status: Yes, Screen for Goals of Care: Yes, Screen for Pain: Yes, If Pain Regimen Started, Initiate Bowel Regimen: NA, Screen for Nausea/Vomitting: Yes Code Status: 06/28/16 11:27 DNR [Resuscitation Status: Active] [RES] Routine Comment: Resuscitation Status: DNR-Comfort Care - Labs CBC & Chem 7: 06/29/16 03:05 06/29/16 03:05 Labs: Laboratory Results - last 24 hr 06/28/16 06/28/16 06/29/16 11:50 17:11 00:29 WBC RBC Hgb Hct MCV MCH MCHC RDW Plt Count MPV Seg Neutrophils % Lymphocytes % Monocytes % Neutrophils # Lymphocytes # Monocytes # Nucleated RBCs/100 WBC Platelet Estimate Sodium Potassium Chloride Carbon Dioxide BUN Creatinine Est GFR ( Amer) Est GFR (Non-Af Amer) BUN/Creatinine Ratio Glucose POC Glucose 165 H 198 H 204 H Calculated Osmolality Calcium Creatine Kinase 06/29/16 06/29/16 06/29/16 03:05 03:05 06:11 WBC 16.8 H RBC 3.10 L Hgb 9.2 L Hct 29.2 L MCV 94.2 MCH 29.7 MCHC 31.5 L RDW 14.7 H Plt Count 255 MPV 11.6 Seg Neutrophils % 78.0 Lymphocytes % 14.0 Monocytes % 8.0 Neutrophils # 13.1 H Lymphocytes # 2.4 Monocytes # 1.3 Nucleated RBCs/100 WBC 0.1 H Platelet Estimate Normal Sodium 145 Potassium 3.9 Chloride 123 H Carbon Dioxide 12 L BUN 47 H D Creatinine 2.34 H Est GFR ( Amer) 33 L Est GFR (Non-Af Amer) 27 L BUN/Creatinine Ratio 20 Glucose 157 H POC Glucose 192 H Calculated Osmolality 316 H Calcium 7.9 L Creatine Kinase 5395 H - Impressions Impressions Hip X-Ray 04/06/17 08:27 IMPRESSION: Status post right hip arthroplasty with no acute abnormality. D/ / 06/28/2016 09:05:20 Boo Purvis MD / sanjiv Interpreting Provider: Boo Purvis MD - ABG Interpretation ABG results: ABG ABG pH 7.36 pH Units (7.32-7.45) 06/27/16 05:42 ABG pCO2 28 mmHg (35-45) L 06/27/16 05:42 ABG pO2 82 mmHg (85-104) L 06/27/16 05:42 ABG O2 Saturation 96 % (95-98) 06/27/16 05:42 PT/INR, D-dimer PT 18.8 Seconds (9.4-12.1) H 06/26/16 04:35 Consult Discharge Plan - Plan Referrals: NO,PCP [Primary Care Provider] - Prescriptions: Hyoscyamine SL [Levsin SL] 0.125 mg SL Q4HR #16 tab.subl LORazepam Oral Conc [Ativan Oral Conc] 0.5 mg PO Q6HR PRN #15 mls PRN Reason: anxiety/restlessness Haloperidol Oral Conc [Haldol] 1 mg PO Q6H PRN #15 mls PRN Reason: Agitation Morphine Oral CONC [Roxanol] 5 - 10 mg PO Q1H PRN #15 oral.syg PRN Reason: shortness of breath/pain
[2016-06-29] MEDS ORDERED: Morphine Oral CONC 5 MG/0.25 ML ORAL.SYG PO PRN (10:49)
[2016-06-29] MEDS ORDERED: Haloperidol Oral Conc 10 MG/5 ML UDC PO PRN (10:51)
[2016-06-29] MEDS ORDERED: *HR* LORazepam Oral Conc 2 MG/ML PO PRN (10:51)
[2016-06-29] MEDS ORDERED: Hyoscyamine SL 0.125 MG TAB.SUBL SL PRN (10:52)
--- NOTE | 2016-06-29 11:37 | Discharge Summary ---
<DavidSrikanth - Last Filed: 06/29/16 11:33> Date of Encounter: 06/29/16 Time of Encounter: 11:33 - Discharge Diagnosis (1) Acute respiratory failure Priority: Primary Status: Acute Qualifiers: Respiratory failure complication: hypoxia Qualified Code(s): J96.01 - Acute respiratory failure with hypoxia (2) Hypernatremia Priority: Primary Status: Acute (3) Metabolic encephalopathy Priority: Primary Status: Acute (4) Hospital-acquired bacterial pneumonia Priority: Primary Status: Acute (5) Severe sepsis Priority: Primary Status: Acute (6) DIANNA (acute kidney injury) Priority: Primary Status: Acute (7) Anemia Priority: Secondary Status: Acute Qualifiers: Qualified Code(s): D64.9 - Anemia, unspecified (8) Rhabdomyolysis Priority: Primary Status: Acute Qualifiers: Qualified Code(s): M62.82 - Rhabdomyolysis (9) Elevated troponin Priority: Secondary Status: Acute (10) Diabetes type 2, controlled Priority: Secondary Status: Acute Qualifiers: Qualified Code(s): E11.9 - Type 2 diabetes mellitus without complications (11) Lactic acidosis Priority: Secondary Status: Acute (12) 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 Priority: Secondary Status: Acute (13) History of right hip hemiarthroplasty Priority: Secondary Status: Acute (14) DVT prophylaxis Priority: Secondary Status: Acute - Discharge Medications Prescriptions: LORazepam Oral Conc [Ativan Oral Conc] 0.5 mg PO Q6HR PRN #15 mls PRN Reason: anxiety/restlessness Haloperidol Oral Conc [Haldol] 1 mg PO Q6H PRN #15 mls PRN Reason: Agitation Morphine Oral CONC [Roxanol] 5 - 10 mg PO Q1H PRN #15 oral.syg PRN Reason: shortness of breath/pain Home Medications: Haloperidol Oral Conc [Haldol] 1 mg PO Q6H PRN #15 mls 06/29/16 [Rx] Hyoscyamine SL [Levsin Sl] 0.125 mg SL Q4HR PRN #0 tab.subl 06/29/16 [Rx] LORazepam Oral Conc [Ativan Oral Conc] 0.5 mg PO Q6HR PRN #15 mls 06/29/16 [Rx] Morphine Oral CONC [Roxanol] 5 - 10 mg PO Q1H PRN #15 oral.syg 06/29/16 [Rx] Allergies/Adverse Reactions: Allergies No Known Allergies Allergy (Verified 06/01/16 19:41) Labs on day of discharge: Labs from last 24 hours 06/29/16 06/29/16 06/29/16 06:11 03:05 03:05 WBC 16.8 H RBC 3.10 L Hgb 9.2 L Hct 29.2 L MCV 94.2 MCH 29.7 MCHC 31.5 L RDW 14.7 H Plt Count 255 MPV 11.6 Seg Neutrophils % 78.0 Lymphocytes % 14.0 Monocytes % 8.0 Neutrophils # 13.1 H Lymphocytes # 2.4 Monocytes # 1.3 Nucleated RBCs/100 WBC 0.1 H Platelet Estimate Normal Sodium 145 Potassium 3.9 Chloride 123 H Carbon Dioxide 12 L BUN 47 H D Creatinine 2.34 H Est GFR ( Amer) 33 L Est GFR (Non-Af Amer) 27 L BUN/Creatinine Ratio 20 Glucose 157 H POC Glucose 192 H Calculated Osmolality 316 H Calcium 7.9 L Creatine Kinase 5395 H 06/29/16 06/28/16 06/28/16 00:29 17:11 11:50 WBC RBC Hgb Hct MCV MCH MCHC RDW Plt Count MPV Seg Neutrophils % Lymphocytes % Monocytes % Neutrophils # Lymphocytes # Monocytes # Nucleated RBCs/100 WBC Platelet Estimate Sodium Potassium Chloride Carbon Dioxide BUN Creatinine Est GFR ( Amer) Est GFR (Non-Af Amer) BUN/Creatinine Ratio Glucose POC Glucose 204 H 198 H 165 H Calculated Osmolality Calcium Creatine Kinase - Impressions ITS Impressions Hip X-Ray 06/28/16 08:27 IMPRESSION: Status post right hip arthroplasty with no acute abnormality. D/ / 06/28/2016 09:05:20 Boo Purvis MD / sanjiv Interpreting Provider: Boo Purvis MD Date of admission: 06/26/16 14:54 Primary care physician: PCP NO Consults: 06/28/16 06:48 Consult to Speech Therapy [CONS] Routine Comment: Evaluate, develop and implement POC Reason for Consult: dysphagia Call Completed: No 06/28/16 08:28 Consult to Orthopedic Surgery [CONS] Routine Consulting Provider: Teresa Pittman Reason for Consult: s/p right hip hemiarthroplasty on 06/03/16, abduction pillow, optifoam assessment Time Notified: 08:30 Call Completed: Yes 06/28/16 10:42 Consult to Palliative Care [CONS] Routine Comment: goal of care, feeding issue Consulting Provider: Palliative Care María Discharging clinician: Srikanth Hernandez Anticipated date of discharge: 06/29/16 - Patient Status Disposition: Hospice - Home Condition: Serious Functional capacity at discharge: bed bound Overall status at discharge: patient is not back to baseline - Discharge Instructions Follow Up With: Amador Allen MD [Partnered Physician] - (Hospice team will confirm with pt's family member if he would like to be f/u with his PCP or hospice physician) - Diet and Activity Activity: wear oxygen at all times Diet: other (explained to his there is risk of aspiration if try oral feeding, she refused artificial feeding) - Hospital Course Hospital course: Mr. Ellis is a 75 year old male with hx of COPD, HTN, HLD who was brought to the emergency department from a rehabilitation facility. Patient was at the rehabilitation facility getting physical therapy for a recent right hip fracture and subsequent replacement. It was noted that he had an altered level of consciousness he was sent to the emergency department. Patient was found to be hypernatriuretic and had a leukocytosis and was unable to protect his own airway. Patient was intubated emergency department and brought to the ICU. His acute respiratory failure was likely secondary to underlying hospital-acquired bacterial pneumonia on top of history of COPD, he received vanco/zosyn/levaquin for the treament, his sodium level normalized with IV fluid, and his rhabdomyolysis was also treated with NS IV fluid, his cpk started to improve, his hypernatremia and DIANNA was likely 2/2 severe dehydration, his renal function continued to improve with NS IV fluid. His severe sepsis with lacitive acidosis resolved with above mentioned IV abxs.Pt was successfully extubated two days ago but with his alcohol induced baseline dementia he was not able to follow command with no gag reflex, palliative was consulted for goal of care, they spoke to his , MANUEL, she specifically mentioned that she wanted to change code status to DNR CC, no artificial feeding or PEG tube, therefore he was kept NPO with D5 1/2 saline IV fluid. This morning when palliative team spoke to his , she decided that she wanted to take him home today with hospice care, no more abxs and no further treatment of his DIANNA, hypernatremia and rhabdomyolysis , therefore we will respect her wishes for the pt, will discharge today him to home with hospice care, with all appropriate discharge medicines to make him comfortable at home. Time spent discussing smoking cessation with patient: more than 10 minutes - Time Spent with Patient Total time spent providing and/or coordinating discharge services: Physical Examination Vital Signs: Vital Signs, Last 4 Hours Temp Pulse Resp BP Pulse Ox 06/29/16 10:02 98.5 F 100 26 111/60 92 06/29/16 08:42 26 94 06/29/16 07:45 94 26 116/54 94 General appearance: no acute distress, other (A and Ox0) Eyes: nonicteric ENT: oropharynx moist Neck: supple Effort: normal Inspection: normal Auscultation: bilateral: diminished breath sounds (at base) Cardiovascular: regular rate and rhythm Gastrointestinal: normoactive bowel sounds, soft, non-tender, non-distended Integumentary: other (multiple tattoos in his body) Extremities: no cyanosis, no edema, no clubbing Musculoskeletal: no deformities pupils equal and round, unable to assess due to mental status mood appropriate, affect normal <Lola Trejo - Last Filed: 06/29/16 23:50> Date of Encounter: 06/29/16 Labs on day of discharge: Labs from last 24 hours 06/29/16 06/29/16 06/29/16 06:11 03:05 03:05 WBC 16.8 H RBC 3.10 L Hgb 9.2 L Hct 29.2 L MCV 94.2 MCH 29.7 MCHC 31.5 L RDW 14.7 H Plt Count 255 MPV 11.6 Seg Neutrophils % 78.0 Lymphocytes % 14.0 Monocytes % 8.0 Neutrophils # 13.1 H Lymphocytes # 2.4 Monocytes # 1.3 Nucleated RBCs/100 WBC 0.1 H Platelet Estimate Normal Sodium 145 Potassium 3.9 Chloride 123 H Carbon Dioxide 12 L BUN 47 H D Creatinine 2.34 H Est GFR ( Amer) 33 L Est GFR (Non-Af Amer) 27 L BUN/Creatinine Ratio 20 Glucose 157 H POC Glucose 192 H Calculated Osmolality 316 H Calcium 7.9 L Creatine Kinase 5395 H 06/29/16 06/28/16 00:29 17:11 WBC RBC Hgb Hct MCV MCH MCHC RDW Plt Count MPV Seg Neutrophils % Lymphocytes % Monocytes % Neutrophils # Lymphocytes # Monocytes # Nucleated RBCs/100 WBC Platelet Estimate Sodium Potassium Chloride Carbon Dioxide BUN Creatinine Est GFR ( Amer) Est GFR (Non-Af Amer) BUN/Creatinine Ratio Glucose POC Glucose 204 H 198 H Calculated Osmolality Calcium Creatine Kinase - Impressions ITS Impressions Hip X-Ray 06/28/16 08:27 IMPRESSION: Status post right hip arthroplasty with no acute abnormality. D/ / 06/28/2016 09:05:20 Boo Purvis MD / sanjiv Interpreting Provider: Boo Purvis MD Date of admission: 06/26/16 14:54 Primary care physician: PCP NO Consults: 06/28/16 06:48 Consult to Speech Therapy [CONS] Routine Comment: Evaluate, develop and implement POC Reason for Consult: dysphagia Call Completed: No 06/28/16 08:28 Consult to Orthopedic Surgery [CONS] Routine Consulting Provider: Teresa Pittman Reason for Consult: s/p right hip hemiarthroplasty on 06/03/16, abduction pillow, optifoam assessment Time Notified: 08:30 Call Completed: Yes 06/28/16 10:42 Consult to Palliative Care [CONS] Routine Comment: goal of care, feeding issue Consulting Provider: Palliative Care [place] - Hospital Course Hospital course: Mr. Ellis is a 75 year old male - Time Spent with Patient Total time spent providing and/or coordinating discharge services: - Attending Attestation I examined this patient and my medical decision-making was reviewed with the PROJECT PRODUCT MANAGER/PA/Advanced Practice Nurse/Resident Physician. I agree with the documented findings, disposition and treatment plan as described except to the extent set forth below. Patient was evaluated by palliative care and family wanted to take him home on hospice, which was done. Poor prognosis.
--- NOTE | 2016-06-29 12:20 | Physician Discharge Referral ---
<Annmarie Arreola - Last Filed: 06/29/16 12:17> Home Health/Hosp Referral Info Transfer to: Hospice Provider in Charge Post Discharge: PCP - Diagnosis (1) Acute kidney injury Status: Acute (2) Hypernatremia Status: Acute (3) Altered mental status Status: Chronic (4) Fracture of femoral neck, right, closed Status: Acute (5) Dysphagia Status: Acute (6) Severe protein-calorie malnutrition Status: Acute - Respiratory Orders Oxygen / L per min (2-4 liters per minute) Smoking Cessation: Smoking cessation has been advised. For more information, call the [place] Tobacco Quit Line at 1-107-RRSQ-NOW. - Dressing/Wound Care Site: Rt lower extremity - Clean daily with soap and water. pat dry. Apply nickel thick Santyl, pad with dressing and cover with Allevyn - Diet/Nutrition Diet/Nutrition: List: Comfort feeds only. - Activity Activity Orders: Bedrest - Services Needed Following services are medically necessary services: Nursing, Home Health Aide - Transfer Medications Prescriptions: LORazepam Oral Conc [Ativan Oral Conc] 0.5 mg PO Q6HR PRN #15 mls PRN Reason: anxiety/restlessness Haloperidol Oral Conc [Haldol] 1 mg PO Q6H PRN #15 mls PRN Reason: Agitation Morphine Oral CONC [Roxanol] 5 - 10 mg PO Q1H PRN #15 oral.syg PRN Reason: shortness of breath/pain Home Medications: Haloperidol Oral Conc [Haldol] 1 mg PO Q6H PRN #15 mls 06/29/16 [Rx] Hyoscyamine SL [Levsin Sl] 0.125 mg SL Q4HR PRN #0 tab.subl 06/29/16 [Rx] LORazepam Oral Conc [Ativan Oral Conc] 0.5 mg PO Q6HR PRN #15 mls 06/29/16 [Rx] Morphine Oral CONC [Roxanol] 5 - 10 mg PO Q1H PRN #15 oral.syg 06/29/16 [Rx] Allergies/Adverse Reactions: Allergies No Known Allergies Allergy (Verified 06/01/16 19:41) Certification: Further, I certify that my clinical findings support that this patient is homebound (i.e. absences from home require considerable and taxing effort and are for medical reasons or [facility] services or infrequently or short duration when for other reasons) because: Homebound Reason: Severity of cardiac or pulmonary status limits activity tolerance (Hospice pt) Attestation: My signature below is to certify that this patient is under my care and that I, or nurse practitioner, or a physician's perinatal breastfeeding assistant working with me, has a face-to -face encounter with this patient. <Lola Trejo M - Last Filed: 06/29/16 17:03> - Respiratory Orders Smoking Cessation: Smoking cessation has been advised. For more information, call the [place] Tobacco Quit Line at 5-976-ZMIYNOW. Certification: Further, I certify that my clinical findings support that this patient is homebound (i.e. absences from home require considerable and taxing effort and are for medical reasons or [facility] services or infrequently or short duration when for other reasons) because: Attestation: My signature below is to certify that this patient is under my care and that I, or nurse practitioner, or a physician's perinatal breastfeeding assistant working with me, has a face-to -face encounter with this patient. I examined this patient and my medical decision-making was reviewed with the AIRCRAFT PAINTER/PA/Advanced Practice Nurse/Resident Physician. I agree with the documented findings, disposition and treatment plan as described except to the extent set forth below.
--- NOTE | 2016-06-29 13:22 | Orthopedic Consult Note ---
Date of Encounter: 06/28/16 Time of Encounter: 12:30 Assessment and Plan (1) History of right hip hemiarthroplasty Current Visit: Yes Status: Acute POW#4 Right Hip Hemiarthroplasty. Will continue with hip precautions x 2-4 weeks. Keep incision dressed x 7 days with Opsite dressing. Remove in 7 days and keep wound cleansed and protected. Encouraged PT/OT as tolerated. Continue ABD brace for support while supine. Keep pressure off heels. f/up in office in 2 weeks. History of Present Illness Chief complaint: Right Hip Hemiarthroplasty HPI: Mr. Ellis is a 75 year old male, in ICU x 1 week. POW#4 Right Hip Hemiarthroplasty. He was last seen at POW#2 and doing well. He is nonverbal currently, in no apparent distress. He is stable currently. Patient's family has requested comfort care measures only. Right Hip: Incision C/D/I - healing well. [place] had been removed. No erythema or obvious s/s of infection. Minimal swellinbg Nontender, no fluctuance noted. No calf tenderness, warmth or swelling. ROM limited secondary to current medical complications. NV intact distally. Past Med Surg Social Fam HX - Past Medical History Medical history: arthritis, COPD, hyperlipidemia, hypertension Psychiatric history: no psych history - Social History Smoking Status: Unknown if ever smoked Smokeless Tobacco Status: No Alcohol use: unknown Drug use: unknown Medications and Allergies Haloperidol Oral Conc [Haldol] 1 mg PO Q6H PRN #15 mls 06/29/16 [Rx] Hyoscyamine SL [Levsin Sl] 0.125 mg SL Q4HR PRN #0 tab.subl 06/29/16 [Rx] LORazepam Oral Conc [Ativan Oral Conc] 0.5 mg PO Q6HR PRN #15 mls 06/29/16 [Rx] Morphine Oral CONC [Roxanol] 5 - 10 mg PO Q1H PRN #15 oral.syg 06/29/16 [Rx] Allergies No Known Allergies Allergy (Verified 06/01/16 19:41) All Systems Reviewed: A 10-system review of systems was performed and is negative for pertinent findings except as documented above in the HPI. Physical Exam - Constitutional Vitals: Temp Pulse Resp BP Pulse Ox 98.5 F 100 18 111/60 94 06/29/16 10:02 06/29/16 10:02 06/29/16 11:41 06/29/16 10:02 06/29/16 11:41 - Hip right Gait: other Tenderness with palpation: none Results - Labs Result Diagrams: 06/29/16 03:05 06/29/16 03:05 Labs: Abnormal lab results WBC 16.8 K/mcL (4.3-11.1) H 06/29/16 03:05 RBC 3.10 M/mcL (4.19-5.50) L 06/29/16 03:05 Hgb 9.2 g/dL (12.9-16.9) L 06/29/16 03:05 Hct 29.2 % (37.5-50.1) L 06/29/16 03:05 MCHC 31.5 g/dL (31.6-35.5) L 06/29/16 03:05 RDW 14.7 % (11.5-14.5) H 06/29/16 03:05 Band Neutrophils % 8.0 % (0-4) H 06/27/16 04:08 Promyelocytes % 2.0 % (0) H 06/27/16 04:08 Neutrophils # 13.1 K/mcL (1.6-8.9) H 06/29/16 03:05 Nucleated RBCs/100 WBC 0.1 /100 WBC (0) H 06/29/16 03:05 Reactive Lymphocytes Present (Not Present) A 06/26/16 04:35 Large Platelets Present (Not Present) A 06/26/16 04:35 Polychromasia 1+ (Not Present) A 06/25/16 20:23 PT 18.8 Seconds (9.4-12.1) H 06/26/16 04:35 ABG pCO2 28 mmHg (35-45) L 06/27/16 05:42 ABG pO2 82 mmHg (85-104) L 06/27/16 05:42 ABG HCO3 15.8 mEQ/L (21-27) L 06/27/16 05:42 ABG Total CO2 16.7 mEq/L (20-26) L 06/27/16 05:42 ABG Base Excess -8.6 mEq/L (-2.0 to 3.0) L 06/27/16 05:42 Chloride 123 mEq/L (98-109) H 06/29/16 03:05 Carbon Dioxide 12 mEq/L (19-29) L 06/29/16 03:05 BUN 47 mg/dL (8-26) H D 06/29/16 03:05 Creatinine 2.34 mg/dL (0.72-1.25) H 06/29/16 03:05 Est GFR ( Amer) 33 (> 60) L 06/29/16 03:05 Est GFR (Non-Af Amer) 27 (> 60) L 06/29/16 03:05 Glucose 157 mg/dL (70-99) H 06/29/16 03:05 POC Glucose 192 (58-89) H 06/29/16 06:11 Calculated Osmolality 316 (280-300) H 06/29/16 03:05 Calcium 7.9 mg/dL (8.6-10.8) L 06/29/16 03:05 AST 113 Units/L (5-34) H 06/26/16 04:35 Alkaline Phosphatase 136 Units/L (38-126) H 06/26/16 04:35 Creatine Kinase 5395 Units/L (30-200) H 06/29/16 03:05 Troponin I 0.04 ng/mL (0-0.03) H* 06/26/16 04:35 Serum Total Protein 5.9 g/dL (6.0-8.3) L 06/26/16 04:35 Albumin 1.6 g/dL (3.5-5.0) L D 06/26/16 04:35 Globulin 4.3 g/dL (2.4-3.5) H 06/26/16 04:35 Albumin/Globulin Ratio 0.4 (1.1-2.2) L 06/26/16 04:35 Urine Clarity Cloudy (Clear) A 06/25/16 20:55 Urine Protein 30 mg/dL (Neg-Trace) H 06/25/16 20:55 Urine Blood Moderate (Negative) H 06/25/16 20:55 Urine Microscopic WBC 3-5 per hpf (0-3) H 06/25/16 20:55 Ur Squamous Epith Cells Many per lpf (None-Few) H 06/25/16 20:55 Coronavirus OC43 (PCR) DETECTED (Not Detect) A 06/26/16 06:00 H & H 06/29/16 Range/Units 03:05 Hgb 9.2 L (12.9-16.9) g/dL Hct 29.2 L (37.5-50.1) % All other labs normal. - Diagnostic results Hip x-ray: report reviewed, image reviewed Consult Discharge Plan - Plan Referrals: Amador Allen MD [Partnered Physician] - (Hospice team will confirm with pt's family member if he would like to be f/u with his PCP or hospice physician) Prescriptions: LORazepam Oral Conc [Ativan Oral Conc] 0.5 mg PO Q6HR PRN #15 mls PRN Reason: anxiety/restlessness Haloperidol Oral Conc [Haldol] 1 mg PO Q6H PRN #15 mls PRN Reason: Agitation Morphine Oral CONC [Roxanol] 5 - 10 mg PO Q1H PRN #15 oral.syg PRN Reason: shortness of breath/pain
[2016-06-30] MEDS ORDERED: Levofloxacin 750 MG/150 ML 750 MG/150 ML BAG IVPB SCH (04:00)
== END 2016-06-29 15:15 | disposition hospice, home (50) | DRG 720 ==
LOC: 2NNU 20:04 → EMEROO 20:04 → 2NNU 06-26 01:18 → ICNU 06-26 02:14 → 2ANU 06-29 09:45
PROVIDERS: ADMIT Internal Medicine; ATTEND Internal Medicine